=== PATIENT | female | born 1930 | race Caucasian/White ===

== ENCOUNTER 2019-01-24 11:54 | Emergency (ER) | payer MEDICARE ==
--- NOTE | 2019-01-24 12:42 | ED ---
Head Injury - HPI Summary HPI Summary: This patient is a 88 year old F presenting to [facility] accompanied by her daughter and nephew with a chief complaint of a head injury since 0900 this morning. The patients daughter reported she fell asleep while going to the bathroom and fell forward hitting her head. The patient reports the pain is a 6/10 in severity. She also reports that the patient has had increased fatigue for the past week, and has been falling asleep suddenly. The patient takes aspirin and two blood pressure medications regularly. She denies any fevers, chest pain, cough, SOB, and diarrhea. The patient has a Hx of congestive heart failure and Pancytopenia. Symptoms aggravated by nothing. Symptoms alleviated by nothing. The patient lives alone next to her daughter. The house is designed for her to live alone. - History Of Current Complaint Chief Complaint: EDHeadInjury Stated Complaint: FALL/POSS HEAD INJ PER PT Time Seen by Provider: 01/24/19 12:22 Hx Obtained From: Patient, Family/News Specialist Mechanism Of Injury: Other - Fell off toilet Onset/Duration: Started Hours Ago - 3 1/2 hours Onset of Pain: Immediate Severity Currently: Moderate Severity Initially: Moderate Pain Intensity: 6 Pain Scale Used: 0-10 Numeric Aggravating Factor(s): Other: - nothing Alleviating Factor(s): Other: - nothing Associated Signs And Symptoms: Negative - fever, chest pain, SOB, cough, diarreha, Other: - Allergies/Home Medications Allergies/Adverse Reactions: Allergies Allergy/AdvReac Type Severity Reaction Status Date / Time benzonatate Allergy Altered Verified 01/25/19 09:23 [From Jaime Merida] Mental Status diltiazem Allergy Dizziness Verified 01/25/19 09:23 iodine Allergy Hives Verified 01/25/19 09:23 simvastatin Allergy Hives Verified 01/25/19 09:23 sulfamethoxazole Allergy Swelling Verified 01/25/19 09:23 [From Bactrim] Of Face,Lips,& Throat trimethoprim [From Bactrim] Allergy Swelling Verified 01/25/19 09:23 Of Face,Lips,& Throat Home Medications: Home Medications Albuterol/Ipratropium NEB.MADHU* [Duoneb (Albuterol 2.5 MG/Ipratropium 0.5 MG)] 1 neb INH Q6H PRN 01/24/19 [History Confirmed 01/24/19] Escitalopram * [Lexapro 10 mg (NF)] 10 mg PO DAILY 01/24/19 [History Confirmed 01/24/19] Fluticasone NASAL SPRAY 50MCG* [Flonase NASAL SPRAY 50MCG*] 2 spray BOTH NARES DAILY PRN 01/24/19 [History Confirmed 01/24/19] Irbesartan [Avapro] 37.5 mg PO DAILY 01/24/19 [History Confirmed 01/24/19] Magnesium Oxide [Magnesium] 133 mg PO BID 01/24/19 [History Confirmed 01/24/19] Mecobal/Levomefolat Ca/B6 Phos [[id number] 3-35-2 mg] 1 tab PO DAILY [History Confirmed 01/24/19] Nitroglycerin TAB 0.4 MG* 0.4 mg SL Q5M PRN 01/24/19 [History Confirmed 01/24/19 ] Torsemide TAB* [Demadex*] 10 mg PO SUTH 01/24/19 [History Confirmed 01/24/19] PMH/Surg Hx/FS Hx/Imm Hx Previously Healthy: No Endocrine/Hematology History: Reports: Hx Diabetes Denies: Hx Thyroid Disease Cardiovascular History: Reports: Hx Angina, Hx Coronary Artery Disease, Hx Hypertension, Hx Myocardial Infarction, Hx Valvular Heart Disease Respiratory History: Denies: Hx Asthma, Hx Chronic Obstructive Pulmonary Disease (COPD) GI History: Denies: Hx Ulcer Musculoskeletal History: Denies: Hx Rheumatoid Arthritis, Hx Osteoporosis - Surgical History Surgery Procedure, Year, and Place: appe, ovarian cyst, tubal ligation, gum surgery wtih dental implants, bilat cataracts, cardiac stents. - Immunization History Date of Tetanus Vaccine: unk Date of Influenza Vaccine: 05/21/15 Infectious Disease History: No Infectious Disease History: Denies: Hx Clostridium Difficile, Hx Hepatitis, Hx Human Immunodeficiency Virus (HIV), Hx of Known/Suspected MRSA, Hx Shingles, Hx Tuberculosis, Traveled Outside the [place] in Last 30 Days - Family History Known Family History: Positive: Other - Osteoarthritis Negative: Cardiac Disease - Social History Alcohol Use: Daily Alcohol Amount: 2 drinks a day Hx Substance Use: No Substance Use Type: Reports: None Hx Tobacco Use: Yes Smoking Status (MU): Former Smoker Type: Cigarettes Amount Used/How Often: quit 30 y ears ago Review of Systems Negative: Fever Negative: Chest Pain Negative: Shortness Of Breath, Cough Negative: Diarrhea Neurological: Other - POSITIVE - HEAD INJURY All Other Systems Reviewed And Are Negative: Yes Physical Exam - Summary Physical Exam Summary: VITAL SIGNS: Reviewed. GENERAL: Patient is a well-developed and nourished FEMALE who is lying comfortable in the stretcher. Patient is not in any acute respiratory distress. HEAD AND FACE: No signs of trauma. No ecchymosis, hematomas or skull depressions. No sinus tenderness. EYES: PERRLA, EOMI x 2, No injected conjunctiva, no nystagmus. EARS: Hearing grossly intact. Ear canals and tympanic membranes are within normal limits. MOUTH: Oropharynx within normal limits. NECK: Supple, trachea is midline, no adenopathy, no JVD, no carotid bruit, no c- spine tenderness, neck with full ROM. CHEST: Symmetric, no tenderness at palpation LUNGS: Clear to auscultation bilaterally. No wheezing or crackles. CVS: Regular rate and rhythm, S1 and S2 present, no murmurs or gallops appreciated. ABDOMEN: Soft, non-tender. No signs of distention. No rebound no guarding, and no masses palpated. Bowel sounds are normal. EXTREMITIES: FROM in all major joints, bilateral LE edema 1+, no cyanosis or clubbing. NEURO: Alert and oriented x 3. No acute neurological deficits. Speech is normal and follows commands. SKIN: Dry and warm GCS: 15 Triage Information Reviewed: Yes Vital Signs On Initial Exam: Initial Vitals Temp Pulse Resp BP Pulse Ox 97.2 F 83 18 187/77 98 01/24/19 11:55 01/24/19 11:55 01/24/19 11:55 01/24/19 11:55 01/24/19 11:55 Vital Signs Reviewed: Yes Diagnostics - Vital Signs Vital Signs Temp Pulse Resp BP Pulse Ox 01/24/19 11:55 97.2 F 83 18 187/77 98 - Laboratory Result Diagrams: 01/24/19 12:51 01/24/19 12:51 Lab Statement: Any lab studies that have been ordered have been reviewed, and results considered in the medical decision making process. - Radiology CXR Radiology Interpretation Completed By: Radiologist Summary of Radiographic Findings: No active cardiopulmonary disease is noted.ED physician has reviewed this report. - CT CT brain CT Interpretation Completed By: Radiologist Summary of CT Findings: No traumatic brain injury or acute intracranial process evident. Involutional change and stigmata of chronic small vessel ischemic disease. ED Physician has reviewed this report. - EKG 12:51 Cardiac Rate: NL - 78 BPM EKG Rhythm: Sinus Rhythm ST Segment: Normal Summary of EKG Findings: Normal sinus rhythm of [address] elevations. EKG is similar to previous EKG no 04/27/15. Re-Evaluation - Re-Evaluation First Eval Re-Evaluation Time: 14:43 Comment: Patient was informed on discharge plan. Patient is agreeable. Head Injury Course/Dx Assessment/Plan: This patient is a 88 year old F presenting to [facility] accompanied by her daughter and nephew with a chief complaint of a head injury since 0900 this morning. The patients daughter reported she fell asleep while going to the bathroom and fell forward hitting her head. The patient reports the pain is a 6/10 in severity. She also reports that the patient has had increased fatigue for the past week, and has been falling asleep suddenly. The patient takes aspirin and two blood pressure medications regularly. She denies any fevers, chest pain, cough, SOB, and diarrhea. The patient has a Hx of congestive heart failure and Pancytopenia. Symptoms aggravated by nothing. Symptoms alleviated by nothing. The patient lives alone next to her daughter. The house is designed for her to live alone. Blood work without any significant abnormality except for hemoglobin of 9.8, hematocrit 32, glucose of 129, lactic acid is 3, and total protein 6.3. Head CT impression: no traumatic brain injury or acute interconnected process evident. Involutional changes and the stigmata of chronic small vessel ischemic disease. Chest x-ray impression: No active cardiopulmonary disease noted. At this time the patient is feeling well she has no complaints. The white count is normal, the CRP is normal, and therefore I do not suspect infection even though the lactic acid is 3. I believe this may be increased due to her hyperglycemia. Therefore I discuss my physical exam and findings with the patient and the patients daughter and the need to follow-up with the primary care physician. The patient is ambulating well, the patients ORTHOSTATICS are normal, therefore decreased frequency of somnolence is not clear at this point. I discussed all the findings and test results with the patient. Patient was instructed to return to the emergency room immediately if any of the symptoms return worsens. Plan of care was discussed with the patient and understands and agrees. All questions were answered at patient satisfaction. There were no further complaints or concerns. Lung exam before discharge: CTA B/L. Good air exchange. No wheezing or crackles heard. CVS: S1 and S2 present. No murmurs appreciated. Patient is alert and oriented x 3. Patient is hemodynamically stable. Patient will be discharged home with follow up PCP in the next 2-3 days - Diagnoses Differential Diagnosis/HQI/PQRI: Cerebral Contusion, Concussion With LOC, Contusion, Intracranial Bleed Provider Diagnoses: Weakness, Falls frequently Discharge - Sign-Out/Discharge Documenting (check all that apply): Patient Departure - discharge Patient Received Moderate/Deep Sedation with Procedure: No - Discharge Plan Condition: Stable Disposition: HOME Patient Education Materials: Weakness (ED), Fall Prevention (ED) Referrals: Kalyn Rudolph MD [Primary Care Provider] - 3 Days Additional Instructions: FOLLOW UP WITH YOUR PRIMARY CARE PROVIDER WITHIN 3 DAYS. RETURN TO THE ED FOR ANY WORSENING OR NEW SYMPTOMS. - Billing Disposition and Condition Condition: STABLE Disposition: Home - Attestation Statements Document Initiated by Scribe: Yes Documenting Scribe: Jay Camacho Provider For Whom Hazel is Documenting (Include Credential): Alex Sousa MD Scribe Attestation: Jay Mac, scribed for Alex Sousa MD on 01/26/19 at 1144. Scribe Documentation Reviewed: Yes Provider Attestation: The documentation as recorded by the scribe, Jay Camacho accurately reflects the service I personally performed and the decisions made by , Alex Sousa MD Status of Scribe Document: Viewed
[2019-01-24 13:24] LABS: Hematocrit 32 % (35-47); Hemoglobin 9.8 g/dL (12.0-16.0); Mean Corpuscular HGB Conc 31 g/dL (31-36); Mean Corpuscular Hemoglobin 28 pg (27-31); Mean Corpuscular Volume 91 fL (80-97); Red Blood Count 3.52 10^6 /uL (3.70-4.87); Red Cell Distribution Width 16 % (10.5-15); White Blood Count 4.1 10^3/uL (3.5-10.8)
[2019-01-24 13:27] LABS: Troponin I 0.01 ng/mL (<0.04)
[2019-01-24 13:36] LABS: Albumin 3.7 g/dL (3.2-5.2); BUN/Creatinine Ratio 33.9 (8-20); EGFR African American 109.9 (>60); EGFR Non-African American 90.8 (>60); Potassium 4.6 mmol/L (3.5-5.0)
[2019-01-24 13:45] LABS: Magnesium 2.1 mg/dL (1.9-2.7)
[2019-01-24 13:50] LABS: Albumin/Globulin Ratio 1.4 (1-3); C Reactive Protein 2.22 mg/L (<8.01); Globulin 2.6 g/dL (2-4); Total Protein 6.3 g/dL (6.4-8.9)
[2019-01-24 13:58] LABS: ABS Eosinophils 0.1 10^3/ul (0-0.6); ABS Monocytes 0.3 10^3/ul (0-0.8); ABS Neutrophils 2.7 10^3/ul (1.5-7.7); Eosinophil % 2.9 %; Lymphocyte % 23.2 %; Nucleated Red Blood Cells % 0.2; Platelet Count 80 10^3/uL (150-450)
[2019-01-24 13:59] LABS: Polychromasia 1+
[2019-01-24 14:04] LABS: TSH (Thyroid Stimulating Horm) 3.31 mcIU/mL (0.34-5.60)
[2019-01-24 14:10] LABS: Total Bilirubin 0.3 mg/dL (0.2-1.0)
[2019-01-24 14:26] LABS: Urine Appearance Cloudy; Urine Bilirubin Negative (Negative); Urine Blood Negative (Negative); Urine Color Yellow; Urine Glucose Negative (Negative); Urine Ketones Negative (Negative); Urine Nitrite Negative (Negative); Urine Protein Negative (Negative); Urine Specific Gravity 1.023 (1.010-1.030); Urine Urobilinogen Negative (Negative)
[2019-01-24 14:59] VITALS: BP 186/86
== END 2019-01-24 14:59 | disposition home or self-care (01) ==
LOC: ED 11:54
DX: R53.1 Weakness (principal); S09.90XA Unspecified injury of head, initial encounter; W22.8XXA Striking against or struck by other objects, initial encounter; Y92.002 Bathroom of unspecified non-institutional (private) residence as the place of occurrence of the external cause; Z91.81 History of falling; E11.9 Type 2 diabetes mellitus without complications; I10 Essential (primary) hypertension; Z79.82 Long term (current) use of aspirin; Z95.5 Presence of coronary angioplasty implant and graft; Z88.2 Allergy status to sulfonamides; Z88.8 Allergy status to other drugs, medicaments and biological substances; Z87.891 Personal history of nicotine dependence
CPT/HCPCS: 36415; 70450; 71046; 80053; 81003; 83605; 83735; 84443; 84484; 85025; 85060; 86140; 93005; 99283

== ENCOUNTER 2019-01-25 09:17 | Inpatient (IN) | payer MEDICARE ==
--- NOTE | 2019-01-25 10:47 | ED ---
Adult Trauma - HPI Summary HPI Summary: 88 year old female presents with frequent falls today. She was seen here yesterday for the same. daughter states that she was on the toilet and she fell asleep and falling and striking her head. She had the same injury yesterday. This is her fourth fall in 2 weeks. daughter states that has been increasing amount of alcohol that she drinking every night and she ends up being a little bit drunk in the morning. Daughter states she does not feel safe bringing the patient home as she continues to fall even thought daughter has been observing her in the morning. Patient has no plans at this time. Denies any chest pressure or shortness of breath. Denies any dizziness. Does admit to right knee pain. - History of Current Complaint Chief Complaint: EDFall Stated Complaint: FALL PER PT SON IN LAW Time Seen by Provider: 01/25/19 09:47 Pain Intensity: 4 - Allergy/Home Medications Allergies/Adverse Reactions: Allergies Allergy/AdvReac Type Severity Reaction Status Date / Time benzonatate Allergy Altered Verified 01/25/19 09:23 [From Jaime Merida] Mental Status diltiazem Allergy Dizziness Verified 01/25/19 09:23 iodine Allergy Hives Verified 01/25/19 09:23 simvastatin Allergy Hives Verified 01/25/19 09:23 sulfamethoxazole Allergy Swelling Verified 01/25/19 09:23 [From Bactrim] Of Face,Lips,& Throat trimethoprim [From Bactrim] Allergy Swelling Verified 01/25/19 09:23 Of Face,Lips,& Throat PMH/Surg Hx/FS Hx/Imm Hx Endocrine/Hematology History: Reports: Hx Diabetes Denies: Hx Anticoagulant Therapy, Hx Thyroid Disease Cardiovascular History: Reports: Hx Angina, Hx Coronary Artery Disease, Hx Hypertension, Hx Myocardial Infarction, Hx Valvular Heart Disease Respiratory History: Denies: Hx Asthma, Hx Chronic Obstructive Pulmonary Disease (COPD) GI History: Denies: Hx Ulcer Musculoskeletal History: Denies: Hx Rheumatoid Arthritis, Hx Osteoporosis - Surgical History Surgery Procedure, Year, and Place: appe, ovarian cyst, tubal ligation, gum surgery wtih dental implants, bilat cataracts, cardiac stents. - Immunization History Date of Tetanus Vaccine: unk Date of Influenza Vaccine: 05/21/15 Infectious Disease History: No Infectious Disease History: Denies: Hx Clostridium Difficile, Hx Hepatitis, Hx Human Immunodeficiency Virus (HIV), Hx of Known/Suspected MRSA, Hx Shingles, Hx Tuberculosis, Traveled Outside the [place] in Last 30 Days - Family History Known Family History: Positive: Other - Osteoarthritis Negative: Cardiac Disease - Social History Alcohol Use: Daily Alcohol Amount: 2 drinks a day Hx Substance Use: No Substance Use Type: Reports: None Hx Tobacco Use: Yes Smoking Status (MU): Former Smoker Type: Cigarettes Amount Used/How Often: quit 30 y ears ago Review of Systems Negative: Fever Negative: Chest Pain Negative: Shortness Of Breath Positive: Myalgia - right knee pain All Other Systems Reviewed And Are Negative: Yes Physical Exam Triage Information Reviewed: Yes Vital Signs On Initial Exam: Initial Vitals Temp Pulse Resp BP Pulse Ox 97.5 F 70 20 163/86 98 01/25/19 09:20 01/25/19 09:20 01/25/19 09:20 01/25/19 09:20 01/25/19 09:20 Vital Signs Reviewed: Yes Appearance: Positive: Well-Appearing Skin: Positive: Warm, Dry Head/Face: Positive: Normal Head/Face Inspection, Other - abrasion to left side of face, superficial laceration to inner lip, brusising to lip Eyes: Positive: Normal, Conjunctiva Clear ENT: Positive: Pharynx normal Respiratory/Lung Sounds: Positive: Clear to Auscultation, Breath Sounds Present Cardiovascular: Positive: Normal, RRR Abdomen Description: Positive: Nontender, Soft Bowel Sounds: Positive: Present Musculoskeletal: Positive: Normal Neurological: Positive: Normal Psychiatric: Positive: Normal Diagnostics - Vital Signs Vital Signs Temp Pulse Resp BP Pulse Ox 01/25/19 09:20 97.5 F 70 20 163/86 98 - Laboratory Result Diagrams: 01/25/19 11:30 01/25/19 11:30 Lab Statement: Any lab studies that have been ordered have been reviewed, and results considered in the medical decision making process. - CT brain CT Interpretation Completed By: Radiologist Summary of CT Findings: IMPRESSION: No intracranial mass or hemorrhage is noted. - EKG No standard instances Cardiac Rate: NL EKG Rhythm: Sinus Rhythm EKG Comparison: No Significant Change Summary of EKG Findings: sinus rhythm, RBBB Re-Evaluation - Re-Evaluation First Eval Re-Evaluation Time: 11:50 Second Eval Re-Evaluation Time: 12:49 Comment: denies chest pain Adult Trauma Course/Dx - Course Course Of Treatment: 88 year old female presents with frequent falls today. She was seen here yesterday for the same. daughter states that she was on the toilet and she fell asleep and falling and striking her head. She had the same injury yesterday. This is her fourth fall in 2 weeks. daughter states that has been increasing amount of alcohol that she drinking every night and she ends up being a little bit drunk in the morning. Daughter states she does not feel safe bringing the patient home as she continues to fall even thought daughter has been observing her in the morning. Patient has no plans at this time. Denies any chest pressure or shortness of breath. Denies any dizziness. Does admit to right knee pain. on exam has superficial laceration noted to left cheek and lip. normal neuro exam. has tenderness right knee. patient continues to sleep off and on during exam. family would like patient admits. ekg shows sinus rhythm. wbc normal. troponin .08 but no chest pain but gave some aspirin. discussed with hospitalist who will consult. patient will be admitted. - Diagnoses Differential Diagnosis/HQI/PQRI: Positive: Abrasion(s), Contusion(s), Fracture Provider Diagnoses: Frequent falls, Head injury, Alcohol intoxication Discharge - Sign-Out/Discharge Documenting (check all that apply): Patient Departure - Discharge Plan Condition: Stable Disposition: ADMITTED TO [facility] Referrals: Kalyn Rudolph MD [Primary Care Provider] - - Billing Disposition and Condition Condition: STABLE Disposition: Admitted to [facility] - Attestation Statements Provider Attestation: I was available for consult. This patient was seen by the MARIELA. The patient was not presented to, seen by, or examined by me. -Devendra
[2019-01-25 11:46] LABS: ABS Basophils 0.1 10^3/ul (0-0.2); ABS Eosinophils 0.1 10^3/ul (0-0.6); ABS Lymphocytes 0.6 10^3/ul (1.0-4.8); ABS Monocytes 0.3 10^3/ul (0-0.8); ABS Neutrophils 3.1 10^3/ul (1.5-7.7); Eosinophil % 2.2 %; Hematocrit 31 % (35-47); Hemoglobin 9.4 g/dL (12.0-16.0); Lymphocyte % 15.5 %; Mean Corpuscular HGB Conc 31 g/dL (31-36); Mean Corpuscular Hemoglobin 28 pg (27-31); Mean Corpuscular Volume 90 fL (80-97); Mean Platelet Volume 8.3 fL (7.4-10.4); Platelet Count 140 10^3/uL (150-450); Red Cell Distribution Width 16 % (10.5-15); White Blood Count 4.1 10^3/uL (3.5-10.8)
[2019-01-25 12:00] LABS: Activated Partial Thrombo Time 28.4 seconds (26.0-36.3); INR 0.97 (0.82-1.09)
[2019-01-25 12:05] LABS: ALT 35 U/L (7-52); AST 31 U/L (13-39); Albumin 3.8 g/dL (3.2-5.2); Albumin/Globulin Ratio 1.5 (1-3); Alkaline Phosphatase 76 U/L (34-104); Anion Gap 7 mmol/L (2-11); BUN/Creatinine Ratio 35.2 (8-20); Blood Urea Nitrogen 19 mg/dL (6-24); CO2 Carbon Dioxide 27 mmol/L (22-32); Calcium 8.9 mg/dL (8.6-10.3); Chloride 103 mmol/L (101-111); EGFR African American 128.9 (>60); EGFR Non-African American 106.5 (>60); Globulin 2.5 g/dL (2-4); Glucose 134 mg/dL (70-100); Magnesium 2.2 mg/dL (1.9-2.7); Potassium 4.3 mmol/L (3.5-5.0); Sodium 137 mmol/L (135-145); Total Protein 6.3 g/dL (6.4-8.9)
[2019-01-25 12:12] LABS: Troponin I 0.08 ng/mL (<0.04)
[2019-01-25] MEDS ORDERED: Aspirin 81 mg CHEW TAB* 81 MG TAB.CHEW PO ONE (12:31)
[2019-01-25 12:38] LABS: Alcohol 66 mg/dL (<10)
[2019-01-25 16:07] LABS: Troponin I 0.08 ng/mL (<0.04)
[2019-01-25] MEDS ORDERED: Acetaminophen TAB* 325 MG PO PRN (16:46)
[2019-01-25] MEDS ORDERED: Thiamine IV* 100 MG/ML 2 ML VIAL IM ONE (16:57)
[2019-01-25] MEDS ORDERED: Albuterol/Ipratropium NEB.SOL* Albuterol 2.5 MG/Ipratropium 0.5 MG 3 ML INH PRN (17:00)
[2019-01-25] MEDS ORDERED: Fluticasone NASAL SPRAY 50MCG* 16 gm SPRAY BTL BOTH NARES PRN (17:00)
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
[2019-01-25] MEDS: Folic Acid TAB* 1 MG PO SCH (21:22)
[2019-01-25] MEDS: Enoxaparin(*) 40 MG/0.4 ML SYR SUBCUT SCH (21:23)
[2019-01-25] MEDS: Multivitamins/Minerals TAB PO SCH (21:23)
[2019-01-25] MEDS: Melatonin 3 MG TAB PO PRN (21:59)
[2019-01-25] MEDS ORDERED: Gabapentin CAP(*) 100 MG PO PRN (23:28)
[2019-01-26 01:52] LABS: Troponin I 0.06 ng/mL (<0.04)
[2019-01-26 03:57] LABS: Troponin I 0.07 ng/mL (<0.04)
[2019-01-26] MEDS: Folic Acid TAB* 1 MG PO SCH (07:51)
[2019-01-26] MEDS: Losartan TAB* 25 MG PO SCH (07:51)
[2019-01-26] MEDS: Escitalopram * 10 MG TAB PO SCH (07:51)
[2019-01-26] MEDS: Multivitamins/Minerals TAB PO SCH (07:51)
[2019-01-26] MEDS: Cholecalciferol TAB* 1000 UNITS PO SCH (07:51)
[2019-01-26] MEDS: Aspirin EC TAB* 81 MG TAB.EC PO SCH (07:51)
[2019-01-26] MEDS: Thiamine TAB* 100 MG TAB PO SCH (07:51)
[2019-01-26] MEDS: Torsemide TAB 10 MG PO SCH (08:05)
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
--- NOTE | 2019-01-26 13:46 | ECHO ---
*[facility]* [place] [address] Fax #: [phone] Transthoracic Echocardiogram (Report amended [id number]:[id number]) Patient: Skyler Height: 56 in / Keli 142.2 cm : 1930 Weight: 149.7 lb / Study Date: 01/26/2019 68 kg Age: 88 BP: 112 / 96 Gender: F BMI/BSA: 33.6 kg/m^2 HR: 87 bpm / 1.68 m^2 *Hat Presser: * Olena Patel [facility] RN *Referring Physician: * Monse Bass *Reading Physician: * Beth Martinez MD History: Congestive heart failure. Functional status: Aortic stenosis with TAVR 2 years ago. Obstructive sleep apnea. Risk factors: Former tobacco use. COPD. Hypertension. Diabetes mellitus. Dyslipidemia. NE. CHF. ETOH use. Conclusions Summary: 1. Left ventricle: The cavity size is normal. Wall thickness is moderately increased. Systolic function is normal. The estimated ejection fraction is 60-65%. 2. Left atrium: The atrium is moderately dilated. 3. Right atrium: The atrium is mildly dilated. 4. Mitral valve: There is mild to moderate regurgitation. 5. Aortic valve: Transcatheter aortic valve replacement. There is no significant regurgitation. The mean aortic gradient is 22.5 mmHg. 6. Tricuspid valve: There is moderate-severe regurgitation. 7. Pulmonary arteries: Systolic pressure is severely increased, estimated to be 69 mm Hg. 8. C/t 12/28/2016, pt is now s/p TAVR. No sig AI now. is now mild-moderate , instead of severe and mild-moderate AI then. Tricuspid regurgitation and PHTN are more now. Study data: Transthoracic echocardiogram. Procedure: Transthoracic echocardiography was performed. Image quality was fair. The study was technically limited due to body habitus. Complete 2D, spectral Doppler, and color flow Doppler. Location: Procedure room. Patient status: Inpatient. Patient room number: 406-01. Findings Left ventricle: The cavity size is normal. Wall thickness is moderately increased. Systolic function is normal. The estimated ejection fraction is 60-65%. Wall motion is normal; there are no regional wall motion abnormalities. Doppler parameters are consistent with abnormal left ventricular relaxation (grade 1 diastolic dysfunction). Right ventricle: The cavity size is normal. Systolic function is normal. Left atrium: The atrium is moderately dilated. Right atrium: The atrium is mildly dilated. Mitral valve: The leaflets are mildly thickened. There is no evidence of stenosis. There is mild to moderate regurgitation. Aortic valve: Not well visualized. Transcatheter aortic valve replacement. Follow-up TAVR: The LVOT diameter is 1.8 cm. The peak aortic gradient is 48.2 mmHg. The mean aortic gradient is 22.5 mmHg. The AV VTI is 67.8 cm. The aortic valve area is 1 cm^2. There is no significant regurgitation. Tricuspid valve: The valve is structurally normal. There is no evidence of stenosis. There is moderate-severe regurgitation. Pulmonic valve: The valve is structurally normal. There is mild regurgitation. Aorta: Aortic root: The aortic root is not dilated. Ascending aorta: The ascending aorta is not dilated. Aortic arch: The aortic arch is not dilated. Pericardium: There is no pericardial effusion. Pulmonary arteries: Not well visualized. Systolic pressure is severely increased, estimated to be 69 mm Hg. Systemic veins: Inferior vena cava: The vessel is mildly dilated. The respirophasic diameter changes are in the normal range (>= 50%). Measurements Left ventricle Value Ref Aortic valve Value Ref DEVIN, LAX 3.9 cm 3.8 - 5.2 Peak v, S 3.5 m/sec ----- ESD, LAX 3.0 cm 2.2 - 3.5 VTI, S 67.8 cm ----- FS, LAX (L) 23 % 27 - 45 Mean grad, S 22.5 mm Hg ----- PW, ED, LAX (H) 1.3 cm 0.6 - 0.9 Peak grad, S 48.2 mm Hg ----- FS (L) 23 % 27 - 45 LVOT/AV, VTI ratio 0.39 ----- Mid-wall FS 7 % --------- SHAJI, VTI 1.00 cm^2 ----- PW, ED (H) 1.4 cm 0.6 - 0.9 SHAJI, Vmax 0.90 cm^2 ----- PW/ID, ED 0.35 --------- E', lat raghavendra, TDI (L) 8.9 cm/sec >=10.0 Mitral valve Value Re f E/e', lat raghavendra, TDI 13 --------- Peak E 1.15 m/sec ----- Peak A 1.4 m/sec ----- LVOT Value Ref Decel time 186 ms ----- Diam, S 1.80 cm --------- Peak grad, D 5.3 mm Hg ----- Area 2.5 cm^2 --------- Peak E/A ratio 0.83 ----- Peak raymundo, S 1.24 m/sec --------- VTI, S 26.2 cm --------- Pulmonic valve Value Ref Peak grad, S 6 mm Hg --------- Peak v, S 1.25 m/sec ----- Mean grad, S 4 mm Hg --------- Peak grad, S 6.2 mm Hg ----- Ventricular septum Value Ref Tricuspid valve Value Ref IVS, ED (H) 1.5 cm 0.6 - 0.9 TR peak v (H) 3.9 m/sec <=2.8 Peak RV-RA grad, S 61 mm Hg ----- Right ventricle Value Ref DEVIN major ax, A4C (L) 3.2 cm 5.9 - 8.3 Aortic root Value Ref Root diam 2.6 cm <3.9 Left atrium Value Ref LA ID 4.3 cm --------- Ascending aorta Value Ref SI dim ES, LAX 4.3 cm --------- AAo AP diam, S 2.7 cm ----- ML dim, A4C 4.6 cm --------- SI dim, A4C 6.4 cm --------- Aortic arch Value Ref Vol, ES, 2-p 67 ml --------- Arch diam 2.4 cm ----- Vol/bsa, ES, 2-p (H) 43 ml/m^2 16 - 34 Decending aorta Value Ref Right atrium Value Ref Janay peak raymundo 1.24 m/sec ----- ML dim, ES, A4C (H) 4.9 cm 2.6 - 4.4 SI dim, ES, A4C 5.1 cm 3.4 - 5.3 Inferior vena cava Value Ref Estimated RAP 8 mm Hg --------- Diam 2.3 cm ----- Legend: (L) and (H) mohit values outside specified reference range. Amended Beth Martinez MD 01/26/2019 13:48
[2019-01-26 19:25] LABS: Urine Appearance Cloudy; Urine Bilirubin Negative (Negative); Urine Blood Negative (Negative); Urine Color Yellow; Urine Glucose Negative (Negative); Urine Ketones Negative (Negative); Urine Nitrite Negative (Negative); Urine Protein Negative (Negative); Urine Urobilinogen Negative (Negative)
[2019-01-26] MEDS: Melatonin 3 MG TAB PO PRN (19:58)
[2019-01-26] MEDS: Gabapentin CAP(*) 100 MG PO PRN (19:58)
[2019-01-26] MEDS: Enoxaparin(*) 40 MG/0.4 ML SYR SUBCUT SCH (19:58)
[2019-01-27] MEDS: Metoprolol Succinate XL TAB* 25 MG PO SCH (08:51)
[2019-01-27] MEDS: Cholecalciferol TAB* 1000 UNITS PO SCH (08:52)
[2019-01-27] MEDS: Thiamine TAB* 100 MG TAB PO SCH (08:52)
[2019-01-27] MEDS: Folic Acid TAB* 1 MG PO SCH (08:52)
[2019-01-27] MEDS: Losartan TAB* 25 MG PO SCH (08:52)
[2019-01-27] MEDS: Multivitamins/Minerals TAB PO SCH (08:52)
[2019-01-27] MEDS: Aspirin EC TAB* 81 MG TAB.EC PO SCH (08:52)
[2019-01-27] MEDS: Escitalopram * 10 MG TAB PO SCH (08:52)
[2019-01-27] MEDS ORDERED: Magnesium Sulfate 1 GM IV* 1 GM/100 ML BAG IV ONE (09:45)
[2019-01-27 11:11] LABS: BUN/Creatinine Ratio 36.7 (8-20); EGFR African American 114.2 (>60); EGFR Non-African American 94.3 (>60); Potassium 4.3 mmol/L (3.5-5.0)
[2019-01-27] MEDS: Polyethylene Glycol 3350* 17 GM PACKET PO PRN (17:30)
--- NOTE | 2019-01-27 17:56 | PN ---
Subjective Date of Service: 01/27/19 Interval History: Patient seen and examined. No acute overnight events. Not scoring on WAM, states gabapentin helped with RLS overnight but she did initially have trouble falling asleep. States her left great toe hurts after getting OOB with PT yesterday (was fractured earlier this month). No further complaints noted. Objective Active Medications: Acetaminophen (Tylenol Tab*) 650 mg PO Q4H PRN PRN Reason: FEVER/PAIN Albuterol/Ipratropium (Duoneb (Albuterol 2.5 Mg/Ipratropium 0.5 Mg)) 1 neb INH Q6H PRN PRN Reason: SHORTNESS OF BREATH Aspirin (Aspirin Ec Tab*) 81 mg PO DAILY [facility] Last Admin: 01/27/19 08:52 Dose: 81 mg Cholecalciferol (Vitamin D Tab*) 2,000 units PO DAILY [facility] Last Admin: 01/27/19 08:52 Dose: 2,000 units Enoxaparin Sodium (Lovenox(*)) 40 mg SUBCUT Q24H [facility] Last Admin: 01/26/19 19:58 Dose: 40 mg Escitalopram Oxalate (Lexapro *) 10 mg PO DAILY [facility] Last Admin: 01/27/19 08:52 Dose: 10 mg Fluticasone Propionate (Flonase Nasal [place] 50mcg*) 2 spray BOTH NARES DAILY PRN PRN Reason: CONGESTION Folic Acid (Folvite Tab*) 1 mg PO DAILY [facility] Last Admin: 01/27/19 08:52 Dose: 1 mg Gabapentin (Neurontin Cap(*)) 200 mg PO BEDTIME PRN PRN Reason: restless leg Last Admin: 01/26/19 19:58 Dose: 200 mg Gabapentin (Neurontin Cap(*)) 100 mg PO DAILY PRN PRN Reason: restless leg Lorazepam (Ativan Tab(*)) 0 - 6 mg PO .PER [facility] PROTOCOL [facility]; Protocol Losartan Potassium (Cozaar Tab*) 12.5 mg PO DAILY [facility] Last Admin: 01/27/19 08:52 Dose: 12.5 mg Melatonin (Melatonin) 3 mg PO BEDTIME PRN PRN Reason: SLEEP Last Admin: 01/26/19 19:58 Dose: 3 mg Metoprolol Succinate (Toprol Xl Tab*) 12.5 mg PO EVERY OTHER DAY [facility] Last Admin: 01/27/19 08:51 Dose: 12.5 mg Multivitamins/Minerals (Theragran/Minerals Tab*) 1 tab PO DAILY [facility] Last Admin: 01/27/19 08:52 Dose: 1 tab Polyethylene Glycol/Electrolytes (Miralax*) 17 gm PO DAILY PRN PRN Reason: CONSTIPATION Last Admin: 01/27/19 17:30 Dose: 17 gm Thiamine HCl (Vitamin B-1 Tab*) 100 mg PO DAILY [facility] Last Admin: 01/27/19 08:52 Dose: 100 mg Torsemide (Torsemide) 10 mg PO SuTh@0900 [facility] Last Admin: 01/26/19 08:05 Dose: 10 mg Vital Signs - 8 hr 01/27/19 01/27/19 10:32 14:07 Temperature 97.6 F 97.3 F Pulse Rate 87 73 Respiratory 22 20 Rate Blood Pressure 107/69 117/55 (mmHg) O2 Sat by Pulse 98 99 Oximetry Oxygen Devices in Use Now: Nasal Cannula Appearance: alert, NAD Eyes: No Scleral Icterus, PERRLA Ears/Nose/Mouth/Throat: NL Teeth, Lips, Gums, Mucous Membranes Moist, - - bruise with ecchymosis to right lower lip and chin Neck: NL Appearance and Movements; NL JVP, Trachea Midline Respiratory: Symmetrical Chest Expansion and Respiratory Effort, Clear to Auscultation Cardiovascular: NL Sounds; No Murmurs; No JVD, RRR, No Edema Abdominal: NL Sounds; No Tenderness; No Distention, No Hepatosplenomegaly Extremities: No Edema Skin: No Rash or Ulcers Nutrition: Taking PO's Result Diagrams: 01/25/19 11:30 01/27/19 10:20 Diagnostic Imaging: Patient Name: GUERDA MEDELLIN Medical Record#: [id number] Ordering Physician: Jamila REED Acct.#: [id number] : 1930 Age: 88 Sex: F Location: EMERGENCY DEPARTMENT Exam Date: 01/25/19953 ADM Status: REG ER Order Information: CT BRAIN WO Accession Number: [id number] CPT: 14367 Indication: Head injury. CT of the brain performed without IV contrast. Ventricular structures are midline. No midline shift is noted. The extra-axial bases are unremarkable. There is no evidence of intracranial mass or hemorrhage. No other high or low density lesions identified. Mastoid air cells and paranasal sinuses are unremarkable. Mucus retention cyst in the left maxillary sinus. When compared to previous exam of January 24, 2019 no significant change is noted. IMPRESSION: No intracranial mass or hemorrhage is noted. Patient Name: GUERDA MEDELLIN Medical Record#: [id number] Ordering Physician: Jamila REED Acct.#: [id number] : 1930 Age: 88 Sex: F Location: EMERGENCY DEPARTMENT Exam Date: 01/25/19953 ADM Status: REG ER Order Information: CT MAXILLOFACIAL W/O Accession Number: [id number] CPT: 91940 INDICATION: Facial trauma. COMPARISON: There are no relevant prior studies available for comparison. TECHNIQUE: Contiguous axial sections of the axial images of the facial bones were obtained and reconstructed in the coronal and sagittal planes. FINDINGS: Soft tissue swelling is noted anterior to the mandible. The ponce of the orbits and maxillary sinuses appear intact. The zygomatic arches appear intact. There is no evidence for a fracture of the mandible. The nasal bones appear intact. There is moderate deviation of the nasal septum toward the right side. The pterygoid plates appear intact. There is mild mucosal thickening within the frontal and ethmoid sinuses. There are 2 nodules within the left maxillary sinus measuring up to 1.5 cm in size most consistent with mucous retention cysts or polyps. The ostiomeatal complexes are patent bilaterally. IMPRESSION: NO EVIDENCE OF FRACTURE. Patient Name: GUERDA MEDELLIN Medical Record#: [id number] Ordering Physician: Jamila REED Acct.#: [id number] : 1930 Age: 88 Sex: F Location: EMERGENCY DEPARTMENT Exam Date: 01/25/19954 ADM Status: REG ER Order Information: CT SPINE CERVICAL W/O Accession Number: [id number] CPT: 44393 Indication: Neck injury, facial injury. CT of the cervical spine was obtained in the axial plane. Sagittal and coronal reconstructed images were obtained. The skull base demonstrates no evidence of fracture. Mastoid air cells are unremarkable. Degenerative changes of the atlantoaxial joint is noted. The C1 ring is intact. At C2-C3 there is degenerative disc disease. No fracture is identified. No central foraminal stenosis is noted. Facet arthropathy at C2-C3 is noted bilaterally. At C3-C4 spondylitic ridge with minimal grade 1 spondylolisthesis is noted. Facet arthropathy is noted. No central or foraminal stenosis is noted. At C4-C5 minimal grade 1 spondylolisthesis is noted. No central or foraminal stenosis is noted. Right uncovertebral joint hypertrophy narrows the right foramen. At C5-C6 there is complete loss of disc height. Facet arthropathy is noted. Osteophyte for examination is noted. At C6-C7 degenerative disc disease with spondylytic ridge flattens the thecal sac. Ventral and dorsal osteophyte formation is noted. At C7-T1 disc is preserved in height and signal. No fracture is identified. IMPRESSION: Minimal grade 1 spondylolisthesis of C3 on 4 and C4 on 5. Marked degenerative disc disease at C5-C6 with complete loss of the disc space with spondylytic ridge. Degenerative disc disease at C6-C7 with ventral and dorsal osteophyte formation. No fracture is noted. Patient Name: GUERDA MEDELLIN Medical Record#: [id number] Ordering Physician: Jamlia REED Acct.#: [id number] : 1930 Age: 88 Sex: F Location: EMERGENCY DEPARTMENT Exam Date: 01/25/19 1149 ADM Status: REG ER Order Information: KNEE RIGHT 4+ VWS Accession Number: [id number] CPT: 19554 Indication: Right knee pain. 4 views of the right knee demonstrate joint space narrowing in the medial compartment of the right knee. There is no fracture or dislocation. No other bone or joint abnormality is identified. No significant joint effusion is noted. IMPRESSION: Degenerative changes medial compartment right knee. Patient Name: GUERDA MEDELLIN Medical Record#: [id number] Ordering Physician: Monse Bass NP Acct.#: [id number] : 1930 Age: 88 Sex: F Location: [address] [place] [address] Exam Date: 01/25/19 1846 ADM Status: ADM Betty Order Information: CHEST PA & LAT 2 VWS Accession Number: [id number] CPT: 41021 INDICATION: Altered mental status. Falls. History of tobacco use. COMPARISON: January 24, 2019 TECHNIQUE: Dual energy PA and routine lateral views of the chest were obtained. REPORT: Aortic valve endograft. Cardiomegaly. Mild prominence of the central pulmonary vasculature and diffuse mild prominence of the interstitial markings. Probable small pleural effusions. Retrocardiac hiatal hernia. IMPRESSION: #. Mild pulmonary vascular congestion and interstitial edema. Assess/Plan/Problems-Billing Assessment: This is an 88 year old female with history of CAD/MT, HTN, s/p valve replacement, RLS, asthma, COPD, depression, CHF and DONELL that presented to the ER with family after reported 2 week history of increasing day time fatigue, falls and increased ETOH use/intoxication. - Patient Problems (1) Falls frequently Code(s): R29.6 - REPEATED FALLS SNOMED Code(s): 390760373 Comment: - Imaging as above, no fractures evident - PT eval notes patient may benefit from IDANIA at discharge (2) Alcohol use disorder Code(s): NIL1634 - SNOMED Code(s): 8568649 Comment: - Per family patient is drinking at night and overnight because of RLS and insomnia - ETOH level 66 at admission - Not requiring meds, WAM score 3 today - Continue MVI, thiamine and folate - Social work consulted and following - Stable (3) Toe fracture, left Code(s): S92.912A - UNSP FRACTURE OF LEFT TOE(S), INIT FOR CLOS FX SNOMED Code (s): 23018904 Comment: - Fracture noted on imaging earlier this month with no interventionand patient complaining of toe pain since ambulating with PT yesterday - Will re-image toe and discuss with ortho if needed (4) Lactic acidosis Code(s): E87.2 - ACIDOSIS SNOMED Code(s): 14199288 Comment: - In setting of ETOH intoxication and hypoperfusion, now resolved (5) HTN (hypertension) Code(s): I10 - ESSENTIAL (PRIMARY) HYPERTENSION SNOMED Code(s): 93316462 Comment: - Continue metoprolol (6) Restless leg syndrome Comment: - Started on gabapentin last night which helped per RN report - Increased dose to 200mg PRN at bedtime and 100mg PRN daytime - Although the gabapentin dose is low, it may also mitigate some alcohol withdrawal symptoms, she should continue this at discharge (7) CAD (coronary artery disease) Code(s): I25.10 - ATHSCL HEART DISEASE OF [place] CORONARY ARTERY W/O ANG PCTRS SNOMED Code(s): 56918613 Comment: - With hx of MT in the past - Mildly elevated trops at admission with no chest pain or anginal equivalents , likely demand and hypoperfusion in setting of intoxication - Continue ASA and BB (8) COPD (chronic obstructive pulmonary disease) Code(s): J44.9 - CHRONIC OBSTRUCTIVE PULMONARY DISEASE, UNSPECIFIED SNOMED Code(s): 81954536 Comment: - On O2 at night and PRN - Not in exacerbation (9) DVT prophylaxis Code(s): Z29.9 - ENCOUNTER FOR PROPHYLACTIC MEASURES, UNSPECIFIED SNOMED Code( s): 546644335 Comment: - Lovenox subq (10) Full code status Code(s): Z78.9 - OTHER SPECIFIED HEALTH STATUS SNOMED Code(s): 643327249 Status and Disposition: Patient medically optimized for discharge today, however family concerned about safe discharge given ETOH use disorder and functional ability. Will discuss with case management further, as patient's family appealing discharge.
[2019-01-27] MEDS ORDERED: Dextrose 50% Syringe 50 ML* 25 GM/50 ML SYRINGE IV PUSH PRN (18:21)
[2019-01-27] MEDS: Insulin LISPRO* 1 UNITS UNIT SUBCUT SCH (18:54)
[2019-01-27] MEDS: Gabapentin CAP(*) 100 MG PO PRN (18:55)
[2019-01-27] MEDS: Melatonin 3 MG TAB PO PRN (20:24)
[2019-01-27] MEDS: Enoxaparin(*) 40 MG/0.4 ML SYR SUBCUT SCH (20:24)
[2019-01-27] MEDS: LORazepam TAB(*) 1 MG PO SCH (23:13)
[2019-01-28] MEDS: Polyethylene Glycol 3350* 17 GM PACKET PO PRN (07:20)
[2019-01-28] MEDS: Losartan TAB* 25 MG PO SCH (07:24)
[2019-01-28] MEDS: Aspirin EC TAB* 81 MG TAB.EC PO SCH (07:24)
[2019-01-28] MEDS: Cholecalciferol TAB* 1000 UNITS PO SCH (07:26)
[2019-01-28] MEDS: Multivitamins/Minerals TAB PO SCH (07:26)
[2019-01-28] MEDS: Escitalopram * 10 MG TAB PO SCH (07:26)
[2019-01-28] MEDS: Thiamine TAB* 100 MG TAB PO SCH (07:26)
[2019-01-28] MEDS: Folic Acid TAB* 1 MG PO SCH (07:26)
[2019-01-28] MEDS: Insulin LISPRO* 1 UNITS UNIT SUBCUT SCH ×3 (09:03→16:57)
--- NOTE | 2019-01-28 16:46 | PN ---
Subjective Date of Service: 01/28/19 Interval History: Patient seen and examined. Difficulty sleeping overnight, WAM was scored and patient received ativan which did help her to sleep and patient felt better this morning. She did sleep even longer in the morning and then woke up for lunch. BG was elevated yesterday. Denies any further complaints, toe pain controlled, no acute SOB, no chest pain, no n/v, denies tremors, no hallucinations or anxiety. Objective Active Medications: Acetaminophen (Tylenol Tab*) 650 mg PO Q4H PRN PRN Reason: FEVER/PAIN Albuterol/Ipratropium (Duoneb (Albuterol 2.5 Mg/Ipratropium 0.5 Mg)) 1 neb INH Q6H PRN PRN Reason: SHORTNESS OF BREATH Aspirin (Aspirin Ec Tab*) 81 mg PO DAILY [facility] Last Admin: 01/28/19 07:24 Dose: 81 mg Cholecalciferol (Vitamin D Tab*) 2,000 units PO DAILY [facility] Last Admin: 01/28/19 07:26 Dose: 2,000 units Dextrose (D50w Syringe 50 Ml*) 12.5 gm IV PUSH .FOR FS < 60 - SS PRN PRN Reason: FS < 60 Enoxaparin Sodium (Lovenox(*)) 40 mg SUBCUT Q24H [facility] Last Admin: 01/27/19 20:24 Dose: 40 mg Escitalopram Oxalate (Lexapro *) 10 mg PO DAILY [facility] Last Admin: 01/28/19 07:26 Dose: 10 mg Fluticasone Propionate (Flonase Nasal [place] 50mcg*) 2 spray BOTH NARES DAILY PRN PRN Reason: CONGESTION Folic Acid (Folvite Tab*) 1 mg PO DAILY [facility] Last Admin: 01/28/19 07:26 Dose: 1 mg Gabapentin (Neurontin Cap(*)) 200 mg PO BEDTIME PRN PRN Reason: restless leg Last Admin: 01/27/19 18:55 Dose: 200 mg Gabapentin (Neurontin Cap(*)) 100 mg PO DAILY PRN PRN Reason: restless leg Insulin Human Lispro (Humalog*) 0 units SUBCUT AC [facility]; Protocol Last Admin: 01/28/19 12:32 Dose: 1 unit Lorazepam (Ativan Tab(*)) 0 - 6 mg PO .PER [place] PROTOCOL [facility]; Protocol Last Admin: 01/27/19 23:13 Dose: 1 mg Lorazepam (Ativan Tab(*)) 1 mg PO BEDTIME [facility] Losartan Potassium (Cozaar Tab*) 12.5 mg PO DAILY [facility] Last Admin: 01/28/19 07:24 Dose: 12.5 mg Melatonin (Melatonin) 3 mg PO BEDTIME PRN PRN Reason: SLEEP Last Admin: 01/27/19 20:24 Dose: 3 mg Metoprolol Succinate (Toprol Xl Tab*) 12.5 mg PO EVERY OTHER DAY [facility] Last Admin: 01/27/19 08:51 Dose: 12.5 mg Multivitamins/Minerals (Theragran/Minerals Tab*) 1 tab PO DAILY [facility] Last Admin: 01/28/19 07:26 Dose: 1 tab Polyethylene Glycol/Electrolytes (Miralax*) 17 gm PO DAILY PRN PRN Reason: CONSTIPATION Last Admin: 01/28/19 07:20 Dose: 17 gm Thiamine HCl (Vitamin B-1 Tab*) 100 mg PO DAILY [facility] Last Admin: 01/28/19 07:26 Dose: 100 mg Torsemide (Torsemide) 10 mg PO SuTh@0900 [facility] Last Admin: 01/26/19 08:05 Dose: 10 mg Vital Signs - 8 hr 01/28/19 01/28/19 10:45 14:55 Temperature 98.3 F 98.2 F Pulse Rate 91 78 Respiratory 18 18 Rate Blood Pressure 130/65 141/79 (mmHg) O2 Sat by Pulse 97 99 Oximetry Oxygen Devices in Use Now: Nasal Cannula Appearance: alert, NAD Eyes: No Scleral Icterus, PERRLA Ears/Nose/Mouth/Throat: NL Teeth, Lips, Gums, Mucous Membranes Moist, - - ecchymosis right lower lip Neck: NL Appearance and Movements; NL JVP, Trachea Midline Respiratory: Symmetrical Chest Expansion and Respiratory Effort, Clear to Auscultation Cardiovascular: NL Sounds; No Murmurs; No JVD, RRR, No Edema Abdominal: NL Sounds; No Tenderness; No Distention Extremities: No Edema, No Clubbing, Cyanosis Skin: No Rash or Ulcers Neurological: Alert and Oriented x 3, NL Sensation, - - unsteady gait Nutrition: Taking PO's Result Diagrams: 01/25/19 11:30 01/27/19 10:20 Diagnostic Imaging: Patient Name: GUERDA MEDELLIN Medical Record#: [id number] Ordering Physician: Jamila REED Acct.#: [id number] : 1930 Age: 88 Sex: F Location: EMERGENCY DEPARTMENT Exam Date: 01/25/19953 ADM Status: REG ER Order Information: CT BRAIN WO Accession Number: [id number] CPT: 93392 Indication: Head injury. CT of the brain performed without IV contrast. Ventricular structures are midline. No midline shift is noted. The extra-axial bases are unremarkable. There is no evidence of intracranial mass or hemorrhage. No other high or low density lesions identified. Mastoid air cells and paranasal sinuses are unremarkable. Mucus retention cyst in the left maxillary sinus. When compared to previous exam of January 24, 2019 no significant change is noted. IMPRESSION: No intracranial mass or hemorrhage is noted. Patient Name: GUERDA MEDELLIN Medical Record#: [id number] Ordering Physician: Jamila REED Acct.#: [id number] : 1930 Age: 88 Sex: F Location: EMERGENCY DEPARTMENT Exam Date: 01/25/19953 ADM Status: REG ER Order Information: CT MAXILLOFACIAL W/O Accession Number: [id number] CPT: 94503 INDICATION: Facial trauma. COMPARISON: There are no relevant prior studies available for comparison. TECHNIQUE: Contiguous axial sections of the axial images of the facial bones were obtained and reconstructed in the coronal and sagittal planes. FINDINGS: Soft tissue swelling is noted anterior to the mandible. The ponce of the orbits and maxillary sinuses appear intact. The zygomatic arches appear intact. There is no evidence for a fracture of the mandible. The nasal bones appear intact. There is moderate deviation of the nasal septum toward the right side. The pterygoid plates appear intact. There is mild mucosal thickening within the frontal and ethmoid sinuses. There are 2 nodules within the left maxillary sinus measuring up to 1.5 cm in size most consistent with mucous retention cysts or polyps. The ostiomeatal complexes are patent bilaterally. IMPRESSION: NO EVIDENCE OF FRACTURE. Patient Name: GUERDA MEDELLIN Medical Record#: [id number] Ordering Physician: Jamila REED Acct.#: [id number] : 1930 Age: 88 Sex: F Location: EMERGENCY DEPARTMENT Exam Date: 01/25/19 0955 ADM Status: REG ER Order Information: CT SPINE CERVICAL W/O Accession Number: [id number] CPT: 95340 Indication: Neck injury, facial injury. CT of the cervical spine was obtained in the axial plane. Sagittal and coronal reconstructed images were obtained. The skull base demonstrates no evidence of fracture. Mastoid air cells are unremarkable. Degenerative changes of the atlantoaxial joint is noted. The C1 ring is intact. At C2-C3 there is degenerative disc disease. No fracture is identified. No central foraminal stenosis is noted. Facet arthropathy at C2-C3 is noted bilaterally. At C3-C4 spondylitic ridge with minimal grade 1 spondylolisthesis is noted. Facet arthropathy is noted. No central or foraminal stenosis is noted. At C4-C5 minimal grade 1 spondylolisthesis is noted. No central or foraminal stenosis is noted. Right uncovertebral joint hypertrophy narrows the right foramen. At C5-C6 there is complete loss of disc height. Facet arthropathy is noted. Osteophyte for examination is noted. At C6-C7 degenerative disc disease with spondylytic ridge flattens the thecal sac. Ventral and dorsal osteophyte formation is noted. At C7-T1 disc is preserved in height and signal. No fracture is identified. IMPRESSION: Minimal grade 1 spondylolisthesis of C3 on 4 and C4 on 5. Marked degenerative disc disease at C5-C6 with complete loss of the disc space with spondylytic ridge. Degenerative disc disease at C6-C7 with ventral and dorsal osteophyte formation. No fracture is noted. Patient Name: GUERDA MEDELLIN Medical Record#: [id number] Ordering Physician: Jamila REED Acct.#: [id number] : 1930 Age: 88 Sex: F Location: EMERGENCY DEPARTMENT Exam Date: 01/25/19 1149 ADM Status: REG ER Order Information: KNEE RIGHT 4+ VWS Accession Number: [id number] CPT: 48661 Indication: Right knee pain. 4 views of the right knee demonstrate joint space narrowing in the medial compartment of the right knee. There is no fracture or dislocation. No other bone or joint abnormality is identified. No significant joint effusion is noted. IMPRESSION: Degenerative changes medial compartment right knee. Patient Name: GUERDA MEDELLIN Medical Record#: [id number] Ordering Physician: Monse Bass BUDGET DIRECTOR Acct.#: [id number] : 1930 Age: 88 Sex: F Location: [address] [place] [address] - MEDICAL Exam Date: 01/25/191845 ADM Status: ADM Betty Order Information: CHEST PA & LAT 2 VWS Accession Number: [id number] CPT: 38276 INDICATION: Altered mental status. Falls. History of tobacco use. COMPARISON: January 24, 2019 TECHNIQUE: Dual energy PA and routine lateral views of the chest were obtained. REPORT: Aortic valve endograft. Cardiomegaly. Mild prominence of the central pulmonary vasculature and diffuse mild prominence of the interstitial markings. Probable small pleural effusions. Retrocardiac hiatal hernia. IMPRESSION: #. Mild pulmonary vascular congestion and interstitial edema. Assess/Plan/Problems-Billing Assessment: This is an 88 year old female with history of CAD/SC, HTN, s/p valve replacement, RLS, asthma, COPD, depression, CHF and DONELL that presented to the ER with family after reported 2 week history of increasing day time fatigue, falls and increased ETOH use/intoxication. - Patient Problems (1) Falls frequently Code(s): R29.6 - REPEATED FALLS SNOMED Code(s): 743226405 Comment: - Imaging as above, no fractures evident - PT eval notes patient may benefit from IDANIA at discharge (2) Alcohol use disorder Code(s): PRJ5609 - SNOMED Code(s): 1900018 Comment: - Per family patient is drinking at night and overnight because of RLS and insomnia - ETOH level 66 at admission - Scored on WAM overnight, ativan provided - Continue MVI, thiamine and folate - Social work consulted and following - Stable (3) Toe fracture, left Code(s): S92.912A - UNSP FRACTURE OF LEFT TOE(S), INIT FOR CLOS FX SNOMED Code (s): 33132149 Comment: - Fracture noted on imaging earlier this month with no intervention; patient complaining of toe pain since ambulating with PT 01/26 - Repeat xray 01/27 with no changes from last - Follow up outpatient (4) Lactic acidosis Code(s): E87.2 - ACIDOSIS SNOMED Code(s): 98316728 Comment: - In setting of ETOH intoxication and hypoperfusion, now resolved (5) HTN (hypertension) Code(s): I10 - ESSENTIAL (PRIMARY) HYPERTENSION SNOMED Code(s): 08637565 Comment: - Continue metoprolol (6) Restless leg syndrome Comment: - Started on gabapentin which helped initially, but then not last night - Will continue evening dose and PRN given recent cessation of alcohol and potential detox support, however, 1mg of ativan seemed to help the patient sleep more - Will continue 1mg ativan at bedtime and monitor for somnolence or delerium (7) CAD (coronary artery disease) Code(s): I25.10 - ATHSCL HEART DISEASE OF [place] CORONARY ARTERY W/O ANG PCTRS SNOMED Code(s): 45946027 Comment: - With hx of SC in the past - Mildly elevated trops at admission with no chest pain or anginal equivalents , likely demand and hypoperfusion in setting of intoxication - Continue ASA and BB (8) COPD (chronic obstructive pulmonary disease) Code(s): J44.9 - CHRONIC OBSTRUCTIVE PULMONARY DISEASE, UNSPECIFIED SNOMED Code(s): 49224135 Comment: - On O2 at night and PRN - Not in exacerbation (9) DVT prophylaxis Code(s): Z29.9 - ENCOUNTER FOR PROPHYLACTIC MEASURES, UNSPECIFIED SNOMED Code( s): 163769051 Comment: - Lovenox subq (10) Full code status Code(s): Z78.9 - OTHER SPECIFIED HEALTH STATUS SNOMED Code(s): 713866651 Status and Disposition: Patient medically optimized for discharge today, however family concerned about safe discharge given ETOH use disorder and functional ability. Will discuss with case management further, as patient's family appealing discharge. Will need IDANIA which will not be available until Wednesday or Wednesday.
[2019-01-28] MEDS: Docusate CAP* 100 MG PO PRN (20:22)
[2019-01-28] MEDS: Melatonin 3 MG TAB PO PRN (20:23)
[2019-01-28] MEDS: Enoxaparin(*) 40 MG/0.4 ML SYR SUBCUT SCH (20:24)
[2019-01-28] MEDS ORDERED: LORazepam TAB(*) 1 MG PO SCH (21:00)
[2019-01-28] MEDS: LORazepam TAB(*) 1 MG PO SCH (22:27)
[2019-01-28] MEDS: Gabapentin CAP(*) 100 MG PO PRN (22:28)
[2019-01-29] MEDS: Insulin LISPRO* 1 UNITS UNIT SUBCUT SCH ×3 (05:35→17:08)
[2019-01-29 06:48] LABS: Calcium 9.2 mg/dL (8.6-10.3); EGFR African American 118.7 (>60); EGFR Non-African American 98.1 (>60); Potassium 4.4 mmol/L (3.5-5.0)
--- NOTE | 2019-01-29 10:00 | PN ---
Subjective Date of Service: 01/29/19 Interval History: Patient sleeping on assessment. Needs verbal and tactile prompting to wake to answer questions. Denies pain, sob, cp, palpitations. Discussed status and plan of care with daughter and son in law at length. Discussed reasons why patient was more somnolent today and plans to decrease medications. Discussed patient etoh abuse and ptsd. Also discussed benefits of IDANIA if patient qualifies and is agreeable. Objective Active Medications: Acetaminophen (Tylenol Tab*) 650 mg PO Q4H PRN PRN Reason: FEVER/PAIN Albuterol/Ipratropium (Duoneb (Albuterol 2.5 Mg/Ipratropium 0.5 Mg)) 1 neb INH Q6H PRN PRN Reason: SHORTNESS OF BREATH Aspirin (Aspirin Ec Tab*) 81 mg PO DAILY [facility] Last Admin: 01/28/19 07:24 Dose: 81 mg Cholecalciferol (Vitamin D Tab*) 2,000 units PO DAILY [facility] Last Admin: 01/28/19 07:26 Dose: 2,000 units Dextrose (D50w Syringe 50 Ml*) 12.5 gm IV PUSH .FOR FS < 60 - SS PRN PRN Reason: FS < 60 Docusate Sodium (Colace Cap*) 100 mg PO BID PRN PRN Reason: CONSTIPATION Last Admin: 01/28/19 20:22 Dose: 100 mg Enoxaparin Sodium (Lovenox(*)) 40 mg SUBCUT Q24H [facility] Last Admin: 01/28/19 20:24 Dose: 40 mg Escitalopram Oxalate (Lexapro *) 10 mg PO DAILY [facility] Last Admin: 01/28/19 07:26 Dose: 10 mg Fluticasone Propionate (Flonase Nasal [place] 50mcg*) 2 spray BOTH NARES DAILY PRN PRN Reason: CONGESTION Folic Acid (Folvite Tab*) 1 mg PO DAILY [facility] Last Admin: 01/28/19 07:26 Dose: 1 mg Gabapentin (Neurontin Cap(*)) 100 mg PO DAILY PRN PRN Reason: restless leg Last Admin: 01/28/19 22:28 Dose: 100 mg Insulin Human Lispro (Humalog*) 0 units SUBCUT [facility]; Protocol Last Admin: 01/29/19 05:35 Dose: Not Given Lorazepam (Ativan Tab(*)) 0 - 6 mg PO .PER [facility] PROTOCOL [facility]; Protocol Last Admin: 01/28/19 22:27 Dose: 1 mg Lorazepam (Ativan Tab(*)) 1 mg PO BEDTIME [facility] Last Admin: 01/28/19 20:22 Dose: 1 mg Losartan Potassium (Cozaar Tab*) 12.5 mg PO DAILY [facility] Last Admin: 01/28/19 07:24 Dose: 12.5 mg Melatonin (Melatonin) 3 mg PO BEDTIME PRN PRN Reason: SLEEP Last Admin: 01/28/19 20:23 Dose: 3 mg Metoprolol Succinate (Toprol Xl Tab*) 12.5 mg PO EVERY OTHER DAY [facility] Last Admin: 01/27/19 08:51 Dose: 12.5 mg Multivitamins/Minerals (Theragran/Minerals Tab*) 1 tab PO DAILY [facility] Last Admin: 01/28/19 07:26 Dose: 1 tab Polyethylene Glycol/Electrolytes (Miralax*) 17 gm PO DAILY PRN PRN Reason: CONSTIPATION Last Admin: 01/28/19 07:20 Dose: 17 gm Thiamine HCl (Vitamin B-1 Tab*) 100 mg PO DAILY [facility] Last Admin: 01/28/19 07:26 Dose: 100 mg Torsemide (Torsemide) 10 mg PO SuTh@0900 [facility] Last Admin: 01/26/19 08:05 Dose: 10 mg Vital Signs - 8 hr 01/29/19 01/29/19 01/29/19 02:41 02:42 02:57 Temperature 97.9 F Pulse Rate 94 Respiratory 18 18 20 Rate Blood Pressure 143/68 (mmHg) O2 Sat by Pulse 97 Oximetry 01/29/19 01/29/19 01/29/19 06:26 06:53 07:25 Temperature 97.7 F 97.1 F Pulse Rate 87 72 Respiratory 18 20 18 Rate Blood Pressure 153/73 118/41 (mmHg) O2 Sat by Pulse 99 95 Oximetry Oxygen Devices in Use Now: Nasal Cannula Appearance: Lethargic, NAD Eyes: No Scleral Icterus, PERRLA Ears/Nose/Mouth/Throat: Clear Oropharnyx, Mucous Membranes Moist Neck: NL Appearance and Movements; NL JVP Respiratory: Symmetrical Chest Expansion and Respiratory Effort, - - Upper resp coarse breath sounds anteriorly, but remainder clear Cardiovascular: NL Sounds; No Murmurs; No JVD, RRR, - - Bilateral LE edema +1 Abdominal: NL Sounds; No Tenderness; No Distention Lymphatic: No Cervical Adenopathy Extremities: No Clubbing, Cyanosis Skin: No Rash or Ulcers Neurological: NL Muscle Strength and Tone, - - Lethargic, but responds to voice and tactile stim. Follows command and strength equal Nutrition: Taking PO's Result Diagrams: 01/25/19 11:30 01/29/19 06:15 Additional Lab and Data: Laboratory Results - last 24 hr 01/28/19 01/28/19 01/29/19 11:07 16:24 05:34 Sodium Potassium Chloride Carbon Dioxide Anion Gap BUN Creatinine Est GFR ( Amer) Est GFR (Non-Af Amer) BUN/Creatinine Ratio Glucose POC Glucose (mg/dL) 190 H 141 H 132 H Calcium 01/29/19 06:15 Sodium 135 Potassium 4.4 Chloride 100 L Carbon Dioxide 32 Anion Gap 3 BUN 18 Creatinine 0.58 Est GFR ( Amer) 118.7 Est GFR (Non-Af Amer) 98.1 BUN/Creatinine Ratio 31.0 H Glucose 121 H POC Glucose (mg/dL) Calcium 9.2 Microbiology and Other Data: . Diagnostic Imaging: . Assess/Plan/Problems-Billing Assessment: This is an 88 year old female with history of CAD/MS, HTN, s/p valve replacement, RLS, asthma, COPD, depression, CHF and DONELL that presented to the ER with family after reported 2 week history of increasing day time fatigue, falls and increased ETOH use/intoxication. - Patient Problems (1) Somnolence Comment: - Somnolent this moring and needing frequent verbal and tactile stim to engage in assessment and ROS - I suspect secondary to medications, therefore, sedating medications decreased. See below - ABG and chest xray ordered (2) Restless leg syndrome Comment: - Started on gabapentin which helped initially, but then patient reported no change - Cont Gabapentin PRN given recent cessation of alcohol and potential detox support, - Patient started on 1mg of ativan at bedtime for sleep which she reported helped, but patient received a total of 2 mg last evening approx 2 hrs apart due to schedule bedtime dose and WAM dose. She is somnolent this morning, therefore, I will discontinue WAM dose (she is > 48 from last drink) and I will decrease bedtime dose to reduce somnolence (3) Alcohol use disorder Comment: - Per family patient is drinking at night and overnight because of RLS and insomnia - ETOH level 66 at admission - Scored on WAM overnight and received prn ativan (2 hrs after bedtime dose) - Continue MVI, thiamine and folate - Social work consulted and following - Stable (4) CAD (coronary artery disease) Comment: - With hx of [place] in the past - Mildly elevated trops at admission with no chest pain or anginal equivalents , likely demand and hypoperfusion in setting of intoxication - Continue ASA and BB and Torsemide (5) Aortic stenosis Comment: - mild to mod - s/p TAVR (6) COPD (chronic obstructive pulmonary disease) Comment: - On O2 at night and PRN at home of 2L - Not in exacerbation - Currently on 3L which I suspect is secondary to lethargy (7) Falls frequently Comment: - Imaging completed and no fractures evident - PT eval notes patient may benefit from IDANIA at discharge - OT ordered - PMRU consult ordered (8) HTN (hypertension) Comment: - Continue metoprolol and losartan (9) Lactic acidosis Comment: - In setting of ETOH intoxication and hypoperfusion, now resolved (10) Toe fracture, left Comment: - Fracture noted on imaging earlier this month with no intervention; patient complaining of toe pain since ambulating with PT 01/26 - Repeat xray 01/27 with no changes from last - Follow up outpatient (11) DVT prophylaxis Comment: - Lovenox subq (12) Full code status Status and Disposition: Inpatient until medically stable. Will need IDANIA. Attending: Kodi Joseph
[2019-01-29] MEDS: Cholecalciferol TAB* 1000 UNITS PO SCH (10:20)
[2019-01-29] MEDS: Folic Acid TAB* 1 MG PO SCH (10:20)
[2019-01-29] MEDS: Aspirin EC TAB* 81 MG TAB.EC PO SCH (10:20)
[2019-01-29] MEDS: Escitalopram * 10 MG TAB PO SCH (10:20)
[2019-01-29] MEDS: Multivitamins/Minerals TAB PO SCH (10:21)
[2019-01-29] MEDS: Thiamine TAB* 100 MG TAB PO SCH (10:21)
[2019-01-29] MEDS: Losartan TAB* 25 MG PO SCH (10:21)
[2019-01-29] MEDS: Torsemide TAB 10 MG PO SCH (10:21)
[2019-01-29] MEDS: Metoprolol Succinate XL TAB* 25 MG PO SCH (10:21)
[2019-01-29] MEDS: Docusate CAP* 100 MG PO PRN (20:44)
[2019-01-29] MEDS: Melatonin 3 MG TAB PO PRN (20:44)
[2019-01-29] MEDS: Enoxaparin(*) 40 MG/0.4 ML SYR SUBCUT SCH (20:46)
[2019-01-29] MEDS ORDERED: LORazepam TAB(*) 0.5 MG PO SCH (21:00)
[2019-01-30 06:25] LABS: ABS Eosinophils 0.2 10^3/ul (0-0.6); ABS Lymphocytes 0.7 10^3/ul (1.0-4.8); ABS Monocytes 0.3 10^3/ul (0-0.8); ABS Neutrophils 2.6 10^3/ul (1.5-7.7); Eosinophil % 4.3 %; Hematocrit 28 % (35-47); Hemoglobin 8.6 g/dL (12.0-16.0); Mean Corpuscular HGB Conc 31 g/dL (31-36); Mean Corpuscular Hemoglobin 28 pg (27-31); Mean Corpuscular Volume 89 fL (80-97); Mean Platelet Volume 8.3 fL (7.4-10.4); Platelet Count 109 10^3/uL (150-450); Red Cell Distribution Width 16 % (10.5-15); White Blood Count 3.9 10^3/uL (3.5-10.8)
[2019-01-30 06:43] LABS: Anion Gap 1 mmol/L (2-11); BUN/Creatinine Ratio 31.3 (8-20); Blood Urea Nitrogen 21 mg/dL (6-24); CO2 Carbon Dioxide 39 mmol/L (22-32); Calcium 9.1 mg/dL (8.6-10.3); Chloride 99 mmol/L (101-111); EGFR African American 100.5 (>60); EGFR Non-African American 83.1 (>60); Glucose 126 mg/dL (70-100); Magnesium 1.9 mg/dL (1.9-2.7); Potassium 4.6 mmol/L (3.5-5.0); Sodium 139 mmol/L (135-145)
[2019-01-30] MEDS: Insulin LISPRO* 1 UNITS UNIT SUBCUT SCH ×3 (08:27→17:24)
[2019-01-30] MEDS: Cholecalciferol TAB* 1000 UNITS PO SCH (08:37)
[2019-01-30] MEDS: Thiamine TAB* 100 MG TAB PO SCH (08:37)
[2019-01-30] MEDS: Multivitamins/Minerals TAB PO SCH (08:37)
[2019-01-30] MEDS: Escitalopram * 10 MG TAB PO SCH (08:38)
[2019-01-30] MEDS: Folic Acid TAB* 1 MG PO SCH (08:38)
[2019-01-30] MEDS: Losartan TAB* 25 MG PO SCH (08:38)
[2019-01-30] MEDS: Aspirin EC TAB* 81 MG TAB.EC PO SCH (08:38)
[2019-01-30] MEDS ORDERED: Magnesium Sulfate 2 GM IV* 2 GM/50 ML BAG IVPB ONE (10:28)
--- NOTE | 2019-01-30 15:31 | PN ---
Subjective Date of Service: 01/30/19 Interval History: Per nursing patient did not sleep well last evening. On assessment patient is sleeping in recliner. She is easy to wake and is much more alert and conversing better today. She reports she is tired because she did not sleep well d/t her RLS. She denies cp, palpitations, fever, chills, anxiety, nausea. Objective Active Medications: Acetaminophen (Tylenol Tab*) 650 mg PO Q4H PRN PRN Reason: FEVER/PAIN Albuterol/Ipratropium (Duoneb (Albuterol 2.5 Mg/Ipratropium 0.5 Mg)) 1 neb INH Q6H PRN PRN Reason: SHORTNESS OF BREATH Aspirin (Aspirin Ec Tab*) 81 mg PO DAILY [facility] Last Admin: 01/30/19 08:38 Dose: 81 mg Cholecalciferol (Vitamin D Tab*) 2,000 units PO DAILY [facility] Last Admin: 01/30/19 08:37 Dose: 2,000 units Dextrose (D50w Syringe 50 Ml*) 12.5 gm IV PUSH .FOR FS < 60 - SS PRN PRN Reason: FS < 60 Docusate Sodium (Colace Cap*) 100 mg PO BID PRN PRN Reason: CONSTIPATION Last Admin: 01/29/19 20:44 Dose: 100 mg Enoxaparin Sodium (Lovenox(*)) 40 mg SUBCUT Q24H [facility] Last Admin: 01/29/19 20:46 Dose: 40 mg Escitalopram Oxalate (Lexapro *) 10 mg PO DAILY [facility] Last Admin: 01/30/19 08:38 Dose: 10 mg Fluticasone Propionate (Flonase Nasal [place] 50mcg*) 2 spray BOTH NARES DAILY PRN PRN Reason: CONGESTION Folic Acid (Folvite Tab*) 1 mg PO DAILY [facility] Last Admin: 01/30/19 08:38 Dose: 1 mg Gabapentin (Neurontin Cap(*)) 100 mg PO DAILY PRN PRN Reason: restless leg Last Admin: 01/28/19 22:28 Dose: 100 mg Insulin Human Lispro (Humalog*) 0 units SUBCUT AC [facility]; Protocol Last Admin: 01/30/19 13:45 Dose: 1 unit Lorazepam (Ativan Tab(*)) 0.5 mg PO BEDTIME [facility] Last Admin: 01/29/19 20:44 Dose: 0.5 mg Losartan Potassium (Cozaar Tab*) 12.5 mg PO DAILY [facility] Last Admin: 01/30/19 08:38 Dose: 12.5 mg Melatonin (Melatonin) 3 mg PO BEDTIME PRN PRN Reason: SLEEP Last Admin: 01/29/19 20:44 Dose: 3 mg Metoprolol Succinate (Toprol Xl Tab*) 12.5 mg PO EVERY OTHER DAY [facility] Last Admin: 01/29/19 10:21 Dose: 12.5 mg Multivitamins/Minerals (Theragran/Minerals Tab*) 1 tab PO DAILY [facility] Last Admin: 01/30/19 08:37 Dose: 1 tab Polyethylene Glycol/Electrolytes (Miralax*) 17 gm PO DAILY PRN PRN Reason: CONSTIPATION Last Admin: 01/28/19 07:20 Dose: 17 gm Thiamine HCl (Vitamin B-1 Tab*) 100 mg PO DAILY [facility] Last Admin: 01/30/19 08:37 Dose: 100 mg Torsemide (Torsemide) 10 mg PO SuTh@0900 [facility] Last Admin: 01/29/19 10:21 Dose: 10 mg Vital Signs - 8 hr 01/30/19 01/30/19 01/30/19 07:55 11:21 11:30 Temperature 97.6 F 97.4 F Pulse Rate 78 71 Respiratory 17 17 Rate Blood Pressure 146/65 92/71 137/61 (mmHg) O2 Sat by Pulse 97 98 Oximetry Oxygen Devices in Use Now: Nasal Cannula Appearance: Comfortable, NAD Eyes: No Scleral Icterus, PERRLA Ears/Nose/Mouth/Throat: Clear Oropharnyx, Mucous Membranes Moist Neck: NL Appearance and Movements; NL JVP Respiratory: Symmetrical Chest Expansion and Respiratory Effort, Clear to Auscultation Cardiovascular: NL Sounds; No Murmurs; No JVD, RRR, No Edema Abdominal: NL Sounds; No Tenderness; No Distention Lymphatic: No Cervical Adenopathy Extremities: No Clubbing, Cyanosis Skin: No Rash or Ulcers Neurological: Alert and Oriented x 3, NL Muscle Strength and Tone Nutrition: Taking PO's Result Diagrams: 01/30/19 06:20 01/30/19 06:20 Additional Lab and Data: Laboratory Results - last 24 hr 01/29/19 01/29/19 01/30/19 17:00 20:24 06:20 WBC 3.9 RBC 3.10 L Hgb 8.6 L Hct 28 L MCV 89 MCH 28 MCHC 31 RDW 16 H Plt Count 109 L MPV 8.3 Neut % (Auto) 67.0 Lymph % (Auto) 19.0 [place] % (Auto) 8.9 Eos % (Auto) 4.3 Baso % (Auto) 0.8 Absolute Neuts (auto) 2.6 Absolute Lymphs (auto) 0.7 L Absolute Monos (auto) 0.3 Absolute Eos (auto) 0.2 Absolute Basos (auto) 0.0 Absolute Nucleated RBC 0.0 Nucleated RBC % 0.0 Sodium Potassium Chloride Carbon Dioxide Anion Gap BUN Creatinine Est GFR ( Amer) Est GFR (Non-Af Amer) BUN/Creatinine Ratio Glucose POC Glucose (mg/dL) 117 H 134 H Calcium Magnesium 01/30/19 01/30/19 01/30/19 06:20 08:26 11:55 WBC RBC Hgb Hct MCV MCH MCHC RDW Plt Count MPV Neut % (Auto) Lymph % (Auto) [place] % (Auto) Eos % (Auto) Baso % (Auto) Absolute Neuts (auto) Absolute Lymphs (auto) Absolute Monos (auto) Absolute Eos (auto) Absolute Basos (auto) Absolute Nucleated RBC Nucleated RBC % Sodium 139 Potassium 4.6 Chloride 99 L Carbon Dioxide 39 H Anion Gap 1 L BUN 21 Creatinine 0.67 Est GFR ( Amer) 100.5 Est GFR (Non-Af Amer) 83.1 BUN/Creatinine Ratio 31.3 H Glucose 126 H POC Glucose (mg/dL) 135 H 155 H Calcium 9.1 Magnesium 1.9 Microbiology and Other Data: . Diagnostic Imaging: . Assess/Plan/Problems-Billing Assessment: This is an 88 year old female with history of CAD/IN, HTN, s/p valve replacement, RLS, asthma, COPD, depression, CHF and DONELL that presented to the ER with family after reported 2 week history of increasing day time fatigue, falls and increased ETOH use/intoxication. - Patient Problems (1) Somnolence Comment: - Much less somnulent this morning. Reports she is tired from not sleeping well last evening (2) Restless leg syndrome Comment: - Started on gabapentin which helped initially, but then patient reported no change - Cont Gabapentin PRN given recent cessation of alcohol and potential detox support, - Patient lethargic after 2 mg of Ativan in a 2 hr period, but did not rest well on 0.5 last evening. I will increase to 1 mg at night - Discussed with daughter the importance of seeing neurologist as outpatient for further evaluation of RLS and treatment. (3) Alcohol use disorder Comment: - Per family patient is drinking at night and overnight because of RLS and insomnia - ETOH level 66 at admission - WAM discontinued - Continue MVI, thiamine and folate - Social work consulted and following - Stable (4) CAD (coronary artery disease) Comment: - With hx of IN in the past - Mildly elevated trops at admission with no chest pain or anginal equivalents , likely demand and hypoperfusion in setting of intoxication - Continue ASA and BB and Torsemide (5) Aortic stenosis Comment: - mild to mod - s/p TAVR (6) COPD (chronic obstructive pulmonary disease) Comment: - On O2 at night and PRN at home of 2L - Not in exacerbation - Currently on 2L (7) Falls frequently Comment: - Imaging completed and no fractures evident - PT eval notes patient may benefit from IDANIA at discharge - OT ordered - PMRU consult ordered (8) HTN (hypertension) Comment: - Continue metoprolol and losartan (9) Lactic acidosis Comment: - In setting of ETOH intoxication and hypoperfusion, now resolved (10) Toe fracture, left Comment: - Fracture noted on imaging earlier this month with no intervention; patient complaining of toe pain since ambulating with PT 01/26 - Repeat xray 01/27 with no changes from last - Follow up outpatient (11) DVT prophylaxis Comment: - Lovenox subq (12) Full code status Status and Disposition: Inpatient until medically stable. Will need IDANIA. Attending: Kodi Joseph
[2019-01-30 16:02] LABS: % Iron Saturation 5 % (15-55); Iron 22 ug/dL (50-212); Total Iron Binding Capacity 454 mcg/dL (250-450); Transferrin 324 mg/dL (203-362)
[2019-01-30 16:24] LABS: Ferritin 14.7 ng/mL (11-307)
[2019-01-30 16:27] LABS: Folate > 20.00 ng/mL (>3.99)
[2019-01-30] MEDS: Enoxaparin(*) 40 MG/0.4 ML SYR SUBCUT SCH (20:15)
[2019-01-30] MEDS: Melatonin 3 MG TAB PO PRN (20:18)
[2019-01-30] MEDS ORDERED: LORazepam TAB(*) 1 MG PO SCH (21:00)
[2019-01-31 06:01] LABS: ABS Eosinophils 0.2 10^3/ul (0-0.6); ABS Lymphocytes 0.6 10^3/ul (1.0-4.8); ABS Monocytes 0.4 10^3/ul (0-0.8); ABS Neutrophils 2.8 10^3/ul (1.5-7.7); Eosinophil % 5.4 %; Hematocrit 28 % (35-47); Hemoglobin 8.8 g/dL (12.0-16.0); Lymphocyte % 15.3 %; Mean Corpuscular HGB Conc 31 g/dL (31-36); Mean Corpuscular Hemoglobin 28 pg (27-31); Mean Corpuscular Volume 90 fL (80-97); Mean Platelet Volume 8.7 fL (7.4-10.4); Platelet Count 106 10^3/uL (150-450); Red Blood Count 3.11 10^6 /uL (3.70-4.87); Red Cell Distribution Width 17 % (10.5-15)
[2019-01-31 06:17] LABS: BUN/Creatinine Ratio 29.6 (8-20); Calcium 8.9 mg/dL (8.6-10.3); EGFR African American 128.9 (>60); EGFR Non-African American 106.5 (>60); Magnesium 2.2 mg/dL (1.9-2.7); Potassium 3.9 mmol/L (3.5-5.0)
[2019-01-31] MEDS: Insulin LISPRO* 1 UNITS UNIT SUBCUT SCH ×3 (07:40→17:10)
[2019-01-31] MEDS: Losartan TAB* 25 MG PO SCH (10:19)
[2019-01-31] MEDS: Thiamine TAB* 100 MG TAB PO SCH (10:20)
[2019-01-31] MEDS: Folic Acid TAB* 1 MG PO SCH (10:20)
[2019-01-31] MEDS: Cholecalciferol TAB* 1000 UNITS PO SCH (10:20)
[2019-01-31] MEDS: Metoprolol Succinate XL TAB* 25 MG PO SCH (10:20)
[2019-01-31] MEDS: Aspirin EC TAB* 81 MG TAB.EC PO SCH (10:20)
[2019-01-31] MEDS: Multivitamins/Minerals TAB PO SCH (10:21)
[2019-01-31] MEDS: Escitalopram * 10 MG TAB PO SCH (10:21)
--- NOTE | 2019-01-31 16:40 | PN ---
Subjective Date of Service: 01/31/19 Interval History: Sleeping in recliner on assessment. She is somewhat more somnolent today. She needs verbal stim to continue engagement in ROS and assessment. Denies cp, palpitations, sob, weakness, numbness, fever, chills. Objective Active Medications: Acetaminophen (Tylenol Tab*) 650 mg PO Q4H PRN PRN Reason: FEVER/PAIN Albuterol/Ipratropium (Duoneb (Albuterol 2.5 Mg/Ipratropium 0.5 Mg)) 1 neb INH Q6H PRN PRN Reason: SHORTNESS OF BREATH Aspirin (Aspirin Ec Tab*) 81 mg PO DAILY [facility] Last Admin: 01/31/19 10:20 Dose: 81 mg Cholecalciferol (Vitamin D Tab*) 2,000 units PO DAILY [facility] Last Admin: 01/31/19 10:20 Dose: 2,000 units Dextrose (D50w Syringe 50 Ml*) 12.5 gm IV PUSH .FOR FS < 60 - SS PRN PRN Reason: FS < 60 Docusate Sodium (Colace Cap*) 100 mg PO BID PRN PRN Reason: CONSTIPATION Last Admin: 01/29/19 20:44 Dose: 100 mg Enoxaparin Sodium (Lovenox(*)) 40 mg SUBCUT Q24H [facility] Last Admin: 01/30/19 20:15 Dose: 40 mg Escitalopram Oxalate (Lexapro *) 10 mg PO DAILY [facility] Last Admin: 01/31/19 10:21 Dose: 10 mg Fluticasone Propionate (Flonase Nasal [place] 50mcg*) 2 spray BOTH NARES DAILY PRN PRN Reason: CONGESTION Last Admin: 01/31/19 10:19 Dose: 2 spray Folic Acid (Folvite Tab*) 1 mg PO DAILY [facility] Last Admin: 01/31/19 10:20 Dose: 1 mg Gabapentin (Neurontin Cap(*)) 100 mg PO DAILY PRN PRN Reason: restless leg Last Admin: 01/28/19 22:28 Dose: 100 mg Insulin Human Lispro (Humalog*) 0 units SUBCUT [facility]; Protocol Last Admin: 01/31/19 13:03 Dose: 2 unit Losartan Potassium (Cozaar Tab*) 12.5 mg PO DAILY [facility] Last Admin: 01/31/19 10:19 Dose: 12.5 mg Melatonin (Melatonin) 3 mg PO BEDTIME PRN PRN Reason: SLEEP Last Admin: 01/30/19 20:18 Dose: 3 mg Metoprolol Succinate (Toprol Xl Tab*) 12.5 mg PO EVERY OTHER DAY [facility] Last Admin: 01/31/19 10:20 Dose: 12.5 mg Multivitamins/Minerals (Theragran/Minerals Tab*) 1 tab PO DAILY [facility] Last Admin: 01/31/19 10:21 Dose: 1 tab Polyethylene Glycol/Electrolytes (Miralax*) 17 gm PO DAILY PRN PRN Reason: CONSTIPATION Last Admin: 01/28/19 07:20 Dose: 17 gm Ropinirole HCl (Requip Tab*) 0.25 mg PO DAILY [facility] Thiamine HCl (Vitamin B-1 Tab*) 100 mg PO DAILY [facility] Last Admin: 01/31/19 10:20 Dose: 100 mg Torsemide (Torsemide) 10 mg PO SuTh@0900 [facility] Last Admin: 01/29/19 10:21 Dose: 10 mg Vital Signs - 8 hr 01/31/19 11:35 Temperature 98.2 F Pulse Rate 81 Respiratory 20 Rate Blood Pressure 129/53 (mmHg) O2 Sat by Pulse 87 Oximetry Oxygen Devices in Use Now: Nasal Cannula Appearance: Lethargic, NAD Eyes: No Scleral Icterus, PERRLA Ears/Nose/Mouth/Throat: Clear Oropharnyx, Mucous Membranes Moist Neck: NL Appearance and Movements; NL JVP Respiratory: Symmetrical Chest Expansion and Respiratory Effort, Clear to Auscultation Cardiovascular: NL Sounds; No Murmurs; No JVD, RRR, No Edema Abdominal: NL Sounds; No Tenderness; No Distention Lymphatic: No Cervical Adenopathy Extremities: No Edema Skin: No Rash or Ulcers Neurological: Alert and Oriented x 3, NL Muscle Strength and Tone Nutrition: Taking PO's Result Diagrams: 01/31/19 05:31 01/31/19 05:32 Additional Lab and Data: Laboratory Results - last 24 hr 01/31/19 01/31/19 01/31/19 05:31 05:32 07:24 WBC 4.0 RBC 3.11 L Hgb 8.8 L Hct 28 L MCV 90 MCH 28 MCHC 31 RDW 17 H Plt Count 106 L MPV 8.7 Neut % (Auto) 69.1 Lymph % (Auto) 15.3 [place] % (Auto) 9.1 Eos % (Auto) 5.4 Baso % (Auto) 1.1 Absolute Neuts (auto) 2.8 Absolute Lymphs (auto) 0.6 L Absolute Monos (auto) 0.4 Absolute Eos (auto) 0.2 Absolute Basos (auto) 0.0 Absolute Nucleated RBC 0.0 Nucleated RBC % 0.0 Sodium 139 Potassium 3.9 Chloride 99 L Carbon Dioxide 37 H Anion Gap 3 BUN 16 Creatinine 0.54 Est GFR ( Amer) 128.9 Est GFR (Non-Af Amer) 106.5 BUN/Creatinine Ratio 29.6 H Glucose 126 H POC Glucose (mg/dL) 139 H Calcium 8.9 Magnesium 2.2 01/31/19 01/31/19 12:12 16:53 WBC RBC Hgb Hct MCV MCH MCHC RDW Plt Count MPV Neut % (Auto) Lymph % (Auto) [place] % (Auto) Eos % (Auto) Baso % (Auto) Absolute Neuts (auto) Absolute Lymphs (auto) Absolute Monos (auto) Absolute Eos (auto) Absolute Basos (auto) Absolute Nucleated RBC Nucleated RBC % Sodium Potassium Chloride Carbon Dioxide Anion Gap BUN Creatinine Est GFR ( Amer) Est GFR (Non-Af Amer) BUN/Creatinine Ratio Glucose POC Glucose (mg/dL) 219 H 145 H Calcium Magnesium Microbiology and Other Data: . Diagnostic Imaging: . Assess/Plan/Problems-Billing Assessment: This is an 88 year old female with history of CAD/VT, HTN, s/p valve replacement, RLS, asthma, COPD, depression, CHF and DONELL that presented to the ER with family after reported 2 week history of increasing day time fatigue, falls and increased ETOH use/intoxication. - Patient Problems (1) Iron deficiency Comment: - Mildy anemic but near her baseline - Iron studies ordered and noted to be iron deficient which could be contributing to her RLS. PO iron supplemention ordered. Stool guaic ordered (2) Somnolence Comment: - Mildly somnulent again this morning. - I am concerned this is related to ativan despite the lower dosing. I discussed the medications and my cocern with her daughter and she is agreeable to patient no longer receiving ativan and trying requip again (daughter reports this might have worked for her in the past). (3) Restless leg syndrome Comment: - Started on gabapentin which helped initially, but then patient reported no change - Cont Gabapentin PRN given recent cessation of alcohol and potential detox support, - Somnulence with Ativan - Ordered Requip - Discussed with daughter the importance of seeing neurologist as outpatient for further evaluation of RLS and treatment. - Also noted to be iron deficient therefore stool for blood and iron PO ordered. This could be contributing to her RLS (4) Alcohol use disorder Comment: - Per family patient is drinking at night and overnight because of RLS and insomnia - ETOH level 66 at admission - WAM discontinued - Continue MVI, thiamine and folate - Social work consulted and following - Stable (5) CAD (coronary artery disease) Comment: - With hx of VT in the past - Mildly elevated trops at admission with no chest pain or anginal equivalents , likely demand and hypoperfusion in setting of intoxication - Continue ASA and BB and Torsemide (6) Aortic stenosis Comment: - mild to mod - s/p TAVR (7) COPD (chronic obstructive pulmonary disease) Comment: - On O2 at night and PRN at home of 2L - Not in exacerbation - Currently on 2L (8) Falls frequently Comment: - Imaging completed and no fractures evident - PT eval notes patient may benefit from [facility] at discharge - OT ordered - PMRU consult ordered (9) HTN (hypertension) Comment: - Continue metoprolol and losartan (10) Lactic acidosis Comment: - In setting of ETOH intoxication and hypoperfusion, now resolved (11) Toe fracture, left Comment: - Fracture noted on imaging earlier this month with no intervention; patient complaining of toe pain since ambulating with PT 01/26 - Repeat xray 01/27 with no changes from last - Follow up outpatient (12) DVT prophylaxis Comment: - Lovenox subq (13) Full code status Status and Disposition: Inpatient. Discharge to [facility] tomorrow. Attending: Ting Ramey
[2019-01-31] MEDS: Ropinirole TAB* 0.5 MG TAB PO SCH (18:33)
[2019-01-31] MEDS: Melatonin 3 MG TAB PO PRN (21:23)
[2019-01-31] MEDS: Ferrous Sulfate TAB* 325 MG PO SCH (21:23)
[2019-01-31] MEDS: Enoxaparin(*) 40 MG/0.4 ML SYR SUBCUT SCH (21:24)
[2019-02-01] MEDS: Gabapentin CAP(*) 100 MG PO PRN (01:36)
[2019-02-01] MEDS: Insulin LISPRO* 1 UNITS UNIT SUBCUT SCH ×2 (08:05→12:34)
[2019-02-01] MEDS: Cholecalciferol TAB* 1000 UNITS PO SCH (08:10)
[2019-02-01] MEDS: Ropinirole TAB* 0.5 MG TAB PO SCH (08:11)
[2019-02-01] MEDS: Folic Acid TAB* 1 MG PO SCH (08:12)
[2019-02-01] MEDS: Ferrous Sulfate TAB* 325 MG PO SCH (08:12)
[2019-02-01] MEDS: Losartan TAB* 25 MG PO SCH (08:12)
[2019-02-01] MEDS: Thiamine TAB* 100 MG TAB PO SCH (08:13)
[2019-02-01] MEDS: Escitalopram * 10 MG TAB PO SCH (08:13)
[2019-02-01] MEDS: Aspirin EC TAB* 81 MG TAB.EC PO SCH (08:13)
[2019-02-01] MEDS: Multivitamins/Minerals TAB PO SCH (08:13)
--- NOTE | 2019-02-01 12:12 | DS ---
DISCHARGE SUMMARY: ADDENDUM: DISCHARGE MEDICATIONS: New home medications: 1. Thiamine 100 mg p.o. daily. 2. Requip 0.25 mg p.o. daily. 3. Multivitamin 1 tablet p.o. daily. 4. Melatonin 3 mg p.o. bedtime p.r.n. 5. Gabapentin 100 mg p.o. daily p.r.n. 6. Folic acid 1 mg p.o. daily. 7. Ferrous sulfate 325 mg p.o. t.i.d. 8. Colace 100 mg p.o. b.i.d. p.r.n. Continued home medications: 1. [id number] tablet one tablet p.o. daily. 2. Vitamin D 2000 units p.o. daily. 3. Aspirin 81 mg p.o. daily. 4. DuoNeb 1 inhalation q.6 hours p.r.n. 5. Flonase 2 sprays both nares daily p.r.n. 6. Lexapro 10 mg p.o. daily. 7. Avapro 37.5 mg p.o. daily. 8. Metoprolol succinate 12.5 mg p.o. every other day. 9. Magnesium oxide 133 mg p.o. b.i.d. 10. Nitroglycerin 0.4 mg sublingual q.5 minutes p.r.n. 11. Torsemide 10 mg p.o. on Sundays and . DISCONTINUED HOME MEDICATIONS: No home medications discontinued. ALISHA MENENDEZ, JAIRO [id number]/[facility] #: [id number]
--- NOTE | 2019-02-01 12:20 | DS ---
CC: Dr. Rudolph* DISCHARGE SUMMARY: DATE OF ADMISSION: 01/26/19 DATE OF DISCHARGE: 02/01/19 PRIMARY CARE PHYSICIAN: Dr. Rudolph. ATTENDING PHYSICIAN: Dr. Ting Ramey* (dictated by Alisha Menendez NP). PRIMARY DIAGNOSES: 1. Increased fatigue and falls. 2. Alcohol abuse. 3. Thrombocytopenia. 4. Iron-deficiency. 5. Restless leg syndrome. 6. Coronary artery disease. 7. Aortic stenosis. 8. Chronic obstructive pulmonary disease. 9. Hypertension. 10. Left toe fracture. HISTORY OF PRESENT ILLNESS/HOSPITAL COURSE: Mrs. Cronin is an 88-year-old female with past medical history significant for [place], hypertension, hyperlipidemia, diabetes, asthma, COPD, depression, DONELL, AF, CHF, RLS; who presented to the emergency department on 12/26/18 with complaints of increased fatigue x2 weeks and falling asleep on the toilet. For complete summary of events leading up to the patient's hospitalization, please see history and physical dictated by Monse Bass NP, but in short the patient was brought to the emergency room by her family given increased fatigue and increase in falls. While in the emergency room, the patient admitted to heavy alcohol use to treat restless leg and had a serum alcohol of 66. Given the patient's presenting concerns and concern for safety at home, the patient was admitted to the hospital for further evaluation and treatment. While in the hospital, the patient was in the medical floor. She underwent multiple imaging including CT of the brain, CT of cervical spine, x-ray of right knee, chest x-ray, and echocardiogram. The patient's CT of the brain and maxillofacial CT was unremarkable. The patient's CT of her cervical spine revealed a minimal-grade spondylolisthesis of C3 on C4 and C4 on C5 and degenerative disk disease at C6 and C7. The patient's right knee x-ray revealed degenerative changes. The patent's chest x-ray revealed pulmonary congestion and interstitial edema. The patient's echocardiogram revealed an ejection fraction of 60% to 65%, left ventricle wall thickness moderately increased, mild and moderately dilated right and left atrium, mitral valve regurgitation, aortic reny replacement, [id number] tricuspid regurgitation. During this admission, she also was monitored for alcohol withdrawal and she was on a WAM protocol. The patient did require Ativan occasionally, but has not in the past 48 hours. During this hospitalization, the patient also complained of difficulty sleeping due to restless leg syndrome and reports that is why she was drinking in order to deal with her restless leg syndrome and sleep at night. Two medications were trialed including gabapentin and Ativan. Gabapentin did not give the patient much relief and the patient's daughter was concerned this medication might be making her confused. The patient found relief with Ativan, but unfortunately this made the patient too somnolent and there was concern for the somnolence, decreased mentation and age given this medication of benzodiazepine. Because of these concerns, I spoke with the daughter and we have decided to try the patient on Requip which was started last night on 01/31/19 and she reports she did sleep last night. During this hospitalization, the patient was also evaluated by Physical Therapy, who found the patient would very much benefit from subacute rehab. The patient's family had agreed to this. The patient is stable for discharge home to [facility]. REVIEW OF SYSTEMS: A 14-point review of systems was completed and all were negative. PHYSICAL EXAMINATION: Vital Signs: Temp 98.1, HR 75, RR 22, O2 saturation 97% on 2 L, BP 136/58. General: Mrs. Holland is an 88-year-old female. She is lying in bed. Appears to be in no acute distress. Appears stated age. She is not somnolent. She is easily awakened. She engages well in the review of systems and physical exam. HEENT: EOMs intact. PERRLA. Oral mucosa is moist without lesions. Posterior pharynx is clear. Neck: Supple. No lymphadenopathy. Respiratory: Lungs are clear to auscultation. No wheezes, rhonchi, or rubs. Good aeration. Cardiac: S1, S2 present. No murmurs, rubs, or gallops. Regular rate and rhythm. Abdomen: Soft, nontender. Bowel sounds normoactive throughout. Extremities: No edema. No clubbing or cyanosis. Pedal pulses 2+ bilaterally. Musculoskeletal: No pain or deformities. Skin: Grossly intact. Neuro: No focal deficits or weakness. Strength is 5/5 throughout. DIAGNOSTIC STUDIES/LABORATORY DATA: WBC 4.0, hemoglobin 8.8, hematocrit 28, platelets 106. Sodium 139, potassium 3.8, chloride 99, carbon dioxide 37, BUN 15, creatinine 0.54, glucose 126, magnesium 2.2. Imaging Studies: Please see HPI. DISCHARGE MEDICATIONS: New home medications: 1. Thiamine 100 mg p.o. daily. 2. Requip 0.25 mg p.o. at bedtime 3. Multivitamin 1 tablet p.o. daily. 4. Melatonin 3 mg p.o. bedtime p.r.n. 5. Gabapentin 100 mg p.o. bedtime p.r.n. 6. Folic acid 1 mg p.o. daily. 7. Ferrous sulfate 325 mg p.o. t.i.d. 8. Colace 100 mg p.o. b.i.d. p.r.n. Continued home medications: 1. M-Jxsyip-D12-B6 tablet one tablet p.o. daily. 2. Vitamin D 2000 units p.o. daily. 3. Aspirin 81 mg p.o. daily. 4. DuoNeb 1 inhalation q.6 hours p.r.n. 5. Flonase 2 sprays both nares daily p.r.n. 6. Lexapro 10 mg p.o. daily. 7. Avapro 37.5 mg p.o. daily. 8. Metoprolol succinate 12.5 mg p.o. every other day. 9. Magnesium oxide 133 mg p.o. b.i.d. 10. Nitroglycerin 0.4 mg sublingual q.5 minutes p.r.n. 11. Torsemide 10 mg p.o. on Sundays and . DISCONTINUED HOME MEDICATIONS: No home medications discontinued. DISCHARGE PLANS/FOLLOWUP: 1. Frequent falls: The patient was initially admitted for increased fatigue and frequent falls, which we suspect are secondary to the patient's restless leg syndrome, poor sleep habits, and ETOH abuse. Given the patient's frequent falls, the patient would be discharged to a subacute rehab facility for physical therapy and occupational therapy. We would recommend the patient refrain from alcohol use as this will increase her falls and fatigue. We would also recommend the patient refrain from use of any medications that might be sedating including benzodiazepines as we did see this as very sedating for the patient. 2. Alcohol abuse: As mentioned, the patient admits to alcohol abuse to deal with her restless leg. I would encourage the patient to refrain from alcohol, seek outpatient therapy and support groups. 3. Thrombocytopenia: During the patient's admission, she was noted to have mild thrombocytopenia with platelets of 140 to 106 during her admission. In reviewing her previous labs, this is patient's baseline. We suspect this is secondary to the patient's alcohol abuse. I would monitor her platelets routinely. I may refer to Hematology as patient's daughter already has an appointment scheduled for her. 4. Restless leg syndrome: As mentioned in the HPI, the patient was trialed on gabapentin and Ativan both of which were not continued given side effects. I have started the patient on Requip 0.25 as of 01/31/19. The patient's daughter reports that this has helped her in the past. I would recommend continue this medication and increasing it to 0.5 in the next few days. In addition, the patient was found to have iron deficiency and normocytic anemia. Iron deficiency can increase the patient's restless leg, therefore, I have ordered iron supplementation, which I would recommend that she continue as an outpatient. We have also ordered a stool guaiac to ensure the patient is not bleeding. If this is not obtained prior to her discharge, I would recommend this be obtained as an outpatient. She also has an appointment with GI on Wednesday for further evaluation and I would recommend she keep this appointment. 5. Coronary artery disease: The patient has a history of myocardial infarction in the past. She did have a mildly elevated troponin on admission, which was suspected to be due to demand ischemia and hypoperfusion in the setting of intoxication. I would continue the patient's aspirin, beta arnulfo, and torsemide. 6. Aortic stenosis: As mentioned in her echo, she has a [id number] aortic stenosis, status post TAVR. 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 7. Chronic obstructive pulmonary disease: The patient has a history of COPD and wears 2 L nasal cannula at night. I would continue this including in addition to the patient's home inhalers. The patient has also required some supplemental oxygen during the day here at the hospital, which I suspect was secondary to her somnolence and from some of the medications. I would continue 2 L of nasal cannula during the day and wean her as she tolerates. 8. Hypertension: I would continue the patient's metoprolol and losartan. 9. Toe fracture, left: The patient did complain of toe pain during physical therapy. We reviewed previous imaging, which revealed a fracture with no intervention. We repeated imaging on 01/27/19, which showed no changes. I would be mindful of this left toe fracture during physical therapy and accommodate as needed. 10. Depression: I would continue the patient's Lexapro. 11. Diabetes: The patient is not currently on any medications at home. She has been on a sliding-scale and having fingersticks routinely here in the hospital. The patent had a hemoglobin A1c on 10/26/18, which was 6.5. I will not start the patient on any medication at this time given the acute setting, but I would defer this to her primary care provider and whether or not to start her on an oral diabetic medication. 12. Congestive heart failure: The patient has a history of CHF. I would continue on torsemide as previously prescribed 10 mg on Wednesday and . She does not appear to be in acute exacerbation, but I would monitor routinely. 13. Followup: As mentioned above, I would follow up the patient's labs to monitor her platelets and her H and H. I would also get a stool for guaiac x3 as even if one is completed here in the hospital, just one stool guaiac is not reliable. I would have the patient follow up with her primary care within a week or two of discharge. I also recommend that the patient seek outpatient therapy for her alcohol abuse, neurology evaluation for RLS, hematology for anemia, and GI as already scheduled. 14. Education: The patient is educated on new or worsening symptoms and when to return to the emergency department. Patient stated understanding. TIME SPENT: Approximately 40 minutes were spent on this discharge, greater than half of the time was spent [id number] with the patient discussing discharge plans and instructions and discussing the same with her daughter. Plan: This plan was discussed with my attending, Dr. Ramey, who is in agreement with my plan of care. This is a summarized report of a complex medical history and hospital stay. For further details, please see the entire medical record. ALISHA MENENDEZ, JAIRO [id number]/[facility] #: [id number]/[facility] #: [id number] [facility]
[2019-02-01 12:45] VITALS: BP 126/52
== END 2019-02-01 14:00 | DRG 57 ==
LOC: ED 09:17 → MED 20:01 → OBSVTOIN 01-26 14:00
PROVIDERS: ADMIT Internal Medicine; ATTEND Internal Medicine
DX: G25.81 Restless legs syndrome (principal); E87.2 Acidosis; I50.32 Chronic diastolic (congestive) heart failure; F10.129 Alcohol abuse with intoxication, unspecified; Y90.3 Blood alcohol level of 60-79 mg/100 ml; E11.9 Type 2 diabetes mellitus without complications; I25.10 Atherosclerotic heart disease of native coronary artery without angina pectoris; S01.412A Laceration without foreign body of left cheek and temporomandibular area, initial encounter; S01.511A Laceration without foreign body of lip, initial encounter; I45.10 Unspecified right bundle-branch block; D69.6 Thrombocytopenia, unspecified; R74.8 Abnormal levels of other serum enzymes; E78.5 Hyperlipidemia, unspecified; J44.9 Chronic obstructive pulmonary disease, unspecified; F32.9 Major depressive disorder, single episode, unspecified; R29.6 Repeated falls; S92.912A Unspecified fracture of left toe(s), initial encounter for closed fracture; D50.9 Iron deficiency anemia, unspecified; I48.91 Unspecified atrial fibrillation; G47.33 Obstructive sleep apnea (adult) (pediatric); I11.0 Hypertensive heart disease with heart failure; W01.10XA Fall on same level from slipping, tripping and stumbling with subsequent striking against unspecified object, initial encounter; M43.12 Spondylolisthesis, cervical region; M47.812 Spondylosis without myelopathy or radiculopathy, cervical region; I08.1 Rheumatic disorders of both mitral and tricuspid valves; R40.0 Somnolence; T42.4X5A Adverse effect of benzodiazepines, initial encounter; Y92.239 Unspecified place in hospital as the place of occurrence of the external cause; I25.2 Old myocardial infarction; Z88.8 Allergy status to other drugs, medicaments and biological substances; Z88.1 Allergy status to other antibiotic agents; Z91.041 Radiographic dye allergy status; Z82.61 Family history of arthritis; Z95.5 Presence of coronary angioplasty implant and graft; Z98.42 Cataract extraction status, left eye; Z98.41 Cataract extraction status, right eye; Z87.891 Personal history of nicotine dependence; Z72.89 Other problems related to lifestyle; Z91.81 History of falling; Y92.002 Bathroom of unspecified non-institutional (private) residence as the place of occurrence of the external cause; Z95.2 Presence of prosthetic heart valve; Z79.82 Long term (current) use of aspirin; Z83.3 Family history of diabetes mellitus
CPT/HCPCS: 36415; 36600; 70450; 70486; 71045; 71046; 72125; 80048; 80053; 80320; 81003; 82140; 82607; 82728; 82746; 82803; 83540; 83550; 83605; 83735; 84425; 84484; 85025; 85610; 85730; 93005; 93306; 99285; A9270-GY; G0378; G0480; G8978-GP-CK; G8979-GP-CI; G8987-GO-CK; G8988-GO-CI; J1650; J3411; J3475

== ENCOUNTER 2019-03-24 18:25 | Emergency (ER) | payer MEDICARE ==
--- OUTSIDE RECORDS SUMMARY | 2019-03-24 18:30 | XMS REPORT | Continuity of Care Document ---
:1930 External Reference #:[id number] Author Name Tracy Lemons MD Address [address] [place] [address] Care Team Providers Name Role Phone Amanda Bah M.D. Care Team Information Sensitometrist Unavailable Kalyn Rudolph M.D. Primary Care Physician Unavailable Payers Date Identification Numbers Payment Provider Subscriber Policy Number: [id number] Medicare Guerda Medellin PayID: [id number] [facility] [address] [place] [address] Policy Number: [id number] [facility] Care Option Guerda Medellin PayID: [id number] Claims, [address] [place] [address] Social History Type Date Description Comments Sex Unknown Tobacco Use Start: Unknown End: Unknown Patient is a former smoker Smoking Status Reviewed: 03/10/19 Patient is a former smoker Allergies, Adverse Reactions, Alerts Active Allergies Reaction Severity Comments Date Diltiazem Free Text Mild 01/10/2019 Iodine Free Text, Hives Moderate 01/10/2019 Simvastatin 01/10/2019 Sulfamethoxazole / Trimethoprim 01/10/2019 Benzonatate Free Text, Free Text Severe 01/10/2019 Medications Active Medications SIG Qnty Indications Ordering Date Provider Omeprazole take 1 capsule 30caps Tracy 03/10/2019 20mg Capsules by mouth daily. MD LYUBOV Lemons take 30-60 minutes before a meal. Nitroglycerin Place One 25tabs Kalyn Rudolph 10/18/2018 0.4mg Tablet Under M.D. Tablets Sub The Tongue as Needed For Chest Pain, May Repeat Every 5 Minutes For Up To 3 Total Doses Duoneb 1 unit nebl 540units J01.90 Anais MalloryMaylin 11/05/2017 0.5-2.5(3)mg/3ML every 6 hours D Solution as needed. Office visits 10/19/17 and 12/13/17. Metoprolol Succinate 1/2 by mouth 45tabs Anant Lopez, 02/04/2017 ER every other 25mg Tablets ER 24HR day Torsemide 1 tab 2x week. 30tabs I50.22 Dereck, 12/08/2016 10mg Tablets Akash Lewis MD prn Escitalopram Oxalate take 1 tablet 30tabs Amanda Bah, 07/24/2016 10mg by mouth every M.D. Tablets day Aspirin 1 po qd Unknown 81mg Chewtabs Fluticasone Propionate 2 sprays each 16units Olvin Amanda, nostril once M.D. 50mcg/Act Suspension daily as needed Ropinirole HCL bid Unknown 0.25mg Tablets History Medications Irbesartan 1/2 tab every 90tabs Joshua Harden, 11/10/2018 - 75mg Tablets day 03/10/2019 Omeprazole 1 po qd 30caps Keyla Coelho, 01/07/2012 - 20mg ANATOMY TEACHER-C 02/06/[address] Meredith 200 Unknown - 434.8(200Fe) 03/10/2019 mg Capsules Gabapentin Daily Unknown - 100mg 03/10/2019 Capsules Immunizations CPT Code Status Date Vaccine Lot # 45535 Given 06/17/2018 Influenza Vaccine [place] [address] Given 07/14/2017 Influenza Virus Vaccine, Quadrivalent, Split, Preservative Free 48504 Given 10/04/2015 Pneumococcal Conjugate Vaccine 13 Valent For Intramuscular Use 64977 Given 07/02/2015 Influenza Virus [place], [place] [address] Given 07/13/2014 Influenza Virus Vaccine Split Virus Use For Individual 3Yr Older 58495 Given 06/25/2013 Influenza Virus Vacc[place], [place] [address] Given 07/21/2012 Influenza Virus Vacc[place], [place] [address] Given 07/13/2011 Influenza Virus [place], [place] [address] Given 09/06/2009 Influenza Virus Vaccine, [place] [address] Given 09/06/2008 Pneumovax Vital Signs Date Vital Result Comment 03/10/2019 3:51pm Height 56 inches 4'8" Weight 150.00 lb BMI (Body Mass Index) 33.6 kg/m2 02/06/2019 3:39pm Height 56 inches 4'8" Weight 150.00 lb BMI (Body Mass Index) 33.6 kg/m2 Results Test Date Facility Test Result H/L Range Note Laboratory test 2019 [facility] Helico Pylori Negative Negative 1, 2 finding Antigen- Stool Laboratory test 01/26/2019 [facility] Troponin I <pending> finding Xray 01/25/2019 [facility] Radiology Chest PA & Lat <pending> 2 VWS CBC W/Auto 01/25/2019 [facility] White Blood <pending> Differential(!) Count Ser Auto CNT RBC Red Blood Count <pending> Hemoglobin Blood <pending> Hematocrit <pending> MCV (Corpuscular Volume) <pending> MCH (Corpuscular Hemoglobin) <pending> MCHC (Corpuscular Hemog Conc) <pending> RDW <pending> Platelet Count Blood Auto CNT <pending> MPV <pending> Lymph% <pending> [place]% <pending> Neutrophil % <pending> Absolute Lymphocytes <pending> Absolute Monocytes <pending> Absolute Neutrophils <pending> CMP, Magnesium, 01/25/2019 [facility] Magnesium Ser/Plasma <pending> Phosphorus Mass/Vol Phosphorus <pending> CMP(!) 01/25/2019 [facility] Sodium(!) <pending> Potassium(!) <pending> Chloride Serum/Plasma(!) <pending> Carbon Dioxide Ser/Plasm(!) <pending> BUN - Urea Nitrogen(!) <pending> Calcium Ser/Plasma Mass/Vol(!) <pending> Creatinine Serum Mass/Vol(!) <pending> Glucose Serum(!) <pending> BUN/Creatinine Ratio(!) <pending> Albumin Serum/Plasma(!) <pending> Alkaline Phosphatase(!) <pending> Bilirubin Total Mass/Vol(!) <pending> Ast - Sgot <pending> Alt - SGPT <pending> Protein Total <pending> Laboratory test 01/25/2019 [facility] Troponin I <pending> finding Laboratory test 01/25/2019 [facility] Lactic Acid <pending> finding Ser/Plas Mass/Vol Laboratory test 01/25/2019 [facility] Troponin I <pending> finding Laboratory test 01/25/2019 [facility] Lactic Acid <pending> finding Ser/Plas Mass/Vol Laboratory test 01/25/2019 [facility] Inr(!) <pending> finding Lab Results 11/03/2018 N2N/CCD Import Sodium 141 mmol/L 135-145 Potassium 3.8 mmol/L 3.5-5 Chloride 103 mmol/L 101-111 Co2 Carbon Dioxide 30 mmol/L 22-32 Anion Gap 8 mmol/L 2-11 Glucose 180 mg/dL High 70-100 Blood Urea Nitrogen 18 mg/dL 6-24 Creatinine 0.53 mg/dL 0.51-0.95 BUN/Creatinine Ratio 34.0 1 High 8-20 Calcium 9.2 mg/dL 8.6-10.3 Total Protein 5.9 g/dL Low 6.4-8.9 Albumin 3.7 g/dL 3.2-5.2 Globulin 2.2 g/dL 2-4 Albumin/Globulin Ratio 1.7 1 1-3 Total Bilirubin 0.30 mg/dL 0.2-1 Alkaline Phosphatase 72 U/L 34-104 Alt 41 U/L 7-52 Ast 37 U/L 13-39 Egfr Non- 108.9 1 Egfr 131.7 1 3 CBC Auto Diff 11/03/2018 N2N/CCD Import White Blood Count 3.2 10^3/uL Low 3.5-10.8 Red Blood Count 3.44 10^6/uL Low 4-5.4 Hemoglobin 9.9 g/dL Low 12-16 Hematocrit 32 % Low 35-47 Mean Corpuscular Volume 93 fL 80-97 Mean Corpuscular Hemoglobin 29 pg 27-31 Mean Corpuscular HGB Conc 31 g/dL 31-36 Red Cell Distribution Width 18 % High 10.5-15 Platelet Count 115 10^3/uL Low 150-450 Mean Platelet Volume 8.6 fL 7.4-10.4 Abs Neutrophils 1.8 10^3/uL 1.5-7.7 Abs Lymphocytes 0.9 10^3/uL Low 1-4.8 Abs Monocytes 0.3 10^3/uL 0-0.8 Abs Eosinophils 0.1 10^3/uL 0-0.6 Abs Basophils 0 10^3/uL 0-0.2 Abs Nucleated RBC 0 10^3/uL Granulocyte % 57.0 % Lymphocyte % 27.9 % Monocyte % 9.8 % Eosinophil % 4.1 % Basophil % 1.2 % Nucleated Red Blood Cells % 0 1 Lab Results 11/03/2018 N2N/CCD Import B-Type Natriuretic Peptide 208 pg/mL High BNP Magnesium 2.0 mg/dL 1.9-2.7 Iron & Iron Binding Capacity 11/03/2018 N2N/CCD Import Iron 39 g/dL Low 50-212 Unsaturated Iron Binding < 475 ug/dL Total Iron Binding Capacity 490 g/dL High 250-450 Transferrin 350 mg/dL 203-362 % Iron Saturation 8 % Low 15-55 Lab Results 11/03/2018 N2N/CCD Import Hemoglobin A1c (Glyco 6.5 % High 4- 5.6 4 HGB) Lab Results 09/13/2018 N2N/CCD Import Hemoglobin A1c 6.3 1 5-7 Lab Results 02/18/2018 N2N/CCD Import Sodium 136 mmol/L 135-145 Potassium 3.8 mmol/L 3.5-5 Chloride 99 mmol/L Low 101-111 Co2 Carbon Dioxide 31 mmol/L 22-32 Anion Gap 6 mmol/L 2-11 Glucose 247 mg/dL High 70-100 Blood Urea Nitrogen 19 mg/dL 6-24 Creatinine 0.60 mg/dL 0.51-0.95 BUN/Creatinine Ratio 31.7 1 High 8-20 Calcium 9.2 mg/dL 8.6-10.3 Total Protein 6.0 g/dL Low 6.4-8.9 Albumin 3.8 g/dL 3.2-5.2 Globulin 2.2 g/dL 2-4 Albumin/Globulin Ratio 1.7 1 1-3 Total Bilirubin 0.50 mg/dL 0.2-1 Alkaline Phosphatase 66 U/L 34-104 Alt 24 U/L 7-52 Ast 26 U/L 13-39 Egfr Non- 94.6 1 Egfr 121.6 1 5 CBC Auto Diff 02/18/2018 N2N/CCD Import White Blood Count 3.7 10^3/uL 3.5-10.8 Red Blood Count 3.29 10^6/uL Low 4-5.4 Hemoglobin 11.0 g/dL Low 12-16 Hematocrit 33 % Low 35-47 Mean Corpuscular Volume 101 fL High 80-97 Mean Corpuscular Hemoglobin 33 pg High 27-31 Mean Corpuscular HGB Conc 33 g/dL 31-36 Red Cell Distribution Width 17 % High 10.5-15 Platelet Count 105 10^3/uL Low 150-450 Mean Platelet Volume 8.3 um3 7.4-10.4 Abs Neutrophils 2.6 10^3/uL 1.5-7.7 Abs Lymphocytes 0.8 10^3/uL Low 1-4.8 Abs Monocytes 0.2 10^3/uL 0-0.8 Abs Eosinophils 0.1 10^3/uL 0-0.6 Abs Basophils 0 10^3/uL 0-0.2 Abs Nucleated RBC 0 10^3/uL Granulocyte % 69.6 % 38-83 Lymphocyte % 20.5 % Low 25-47 Monocyte % 6.5 % 0-7 Eosinophil % 2.4 % 0-6 Basophil % 1.0 % 0-2 Nucleated Red Blood Cells % 0.1 1 Urine Culture And 02/18/2018 N2N/CCD Import Urine Culture See Result 6 Sensitivities Below Lab Results 02/18/2018 N2N/CCD Import LDH 275 U/L High 140-27 1 Protein 02/18/2018 N2N/CCD Import Total 6.5 g/dL 6.3-7. Electrophoresis Protein(Pep) 9 Albumin 3.3 g/dL Abnormal 3.4-4.7 Alpha-1 Globulin 0.4 g/dL Abnormal 0.1-0.3 Alpha-2 Globulin 0.8 g/dL 0.6-1 Beta Globulin 1.1 g/dL 0.7-1.2 Gamma Globulin 1.1 g/dL 0.6-1.6 Albumin/Globulin Ratio 1.00 1 Impression See Comment 7 Lab Results 02/18/2018 N2N/CCD Import Erythrocyte Sed Rate 23 mm/Hr 0- 40 C Reactive Protein 2.97 mg/L 8 Urinalysis Profile 02/18/2018 N2N/CCD Import Urine Color Yellow Urine Appearance Cloudy Urine Specific [place] 1.021 1 1.01-1.03 Urine pH 5.0 1 5-9 Urine Urobilinogen Negative Urine Ketones Trace Abnormal Urine Protein Negative Urine Leukocytes Trace Abnormal Urine Blood Negative Urine Nitrite Negative Urine Bilirubin Negative Urine Glucose 1+(50 mg/dL) Abnormal Urine White Blood Cell Trace(0-5/hpf) Urine Red Blood Cell Trace(0-2/hpf) Urine Bacteria 1+ Abnormal Urine Squamous Epithelial Cell Present Abnormal Lab Results 02/18/2018 N2N/CCD Import Lipase 31 U/L 11-82 CBC Auto Diff 11/11/2011 [facility] White Blood Count 6.7 CUMM 4.8-10.8 Red Cell Count 3.85 CUMM Low 4.2-5.4 Hemoglobin 9.7 g/dL Low 12.0-16.0 Hematocrit 30 % Low 35-47 Mean Corpuscular Volume 77 um3 Low 79-97 Mean Corpuscular Hemoglob 25 pg Low 27-31 Mean Corpuscular HGB Cone 33 g/dL 32-36 Redcell Distribution WDTH 24 % High 10.5-15 Platelet Count 201 CUMM 150-450 Mean Platelet Volume 11.7 um3 High 7.4-10.4 9 Manual Differential 11/11/2011 [facility] Polysegmented Neutrophil 63 % 38-83 Lymphocyte 31 % 25-47 Monocyte 2 % 0-13 Eosinophil 3 % 0-6 Basophil 1 % 0-2 Absolute Neutrophil Count 4.2 Anisocytosis 1+ Poikilocytosis 1+ Hypochromasia SLIGHT Polychromasia SLIGHT Ovalocytes 1+ Elliptocyte 1+ Comp Metabolic Panel 11/11/2011 [facility] Sodium 140 mmol/L 135-145 Potassium 4.6 mmol/L 3.5-5.0 Chloride 100 mmol/L Low 101-111 Co2 (Carbon Dioxide) 32.0 mmol/L 22-32 Anion Gap 8.0 mmol/L 2-11 10 Glucose 85 mg/dL 70-100 BUN 18 mg/dL 6-24 Creatinine 0.5 mg/dL Low 0.50-1.40 One Over Creatinine 2.00 BUN/Creatinine Ratio 36.0 High 8-20 Calcium 9.2 mg/dL 8.1-9.9 Total Protein 6.2 GM/DL 6.2-8.1 Albumin 4.2 GM/DL 3.2-5.2 Globulin 2.0 GM/DL 2-4 Albumin/Globulin Ratio 2.1 1-3 Bilirubin Total 0.4 mg/dL 0.4-1.5 11 Alkaline Phosphatase 57 U/L 30-110 Alt (SGPT) 42 U/L 14-54 Ast (Sgot) 35 U/L 12-42 eGFR Non- 118.4 > 60 eGFR 152.3 > 60 12 Laboratory test 11/11/2011 [facility] Cholesterol 156 mg/dL Less Than 200 13 finding HDL Cholesterol 11/11/2011 [facility] High Density 45 mg/dL 40-60 14 Lipoprotein Cholesterol/HDL Ratio 3.47 AVERAGE 1-4.44 Laboratory test finding 11/11/2011 [facility] LDL Direct 83 mg/dL Less Than 100 15 Iron & Iron Binding Capacity 11/11/2011 [facility] Iron Total 27 g/dL Low 28- 170 Unsaturated Iron Binding 471 g/dL Total Iron Binding Capacity 498 g/dL High 250-450 % Iron Saturation 5 % Low 15-55 1 REQ#[id number] [facility] CLIENT: D24 2 Test Performed by: [address] [address] 3 Because ethnic data is not always readily available, this report includes an eGFR for both -Americans and non- Americans. The National Kidney Disease Education Program (NKDEP) does not endorse the use of the MDRD equation for patients that are not between the ages of 18 and 70, are , have extremes of body size, muscle mass, or nutritional status, or are non- or non-. According to the National Kidney Foundation, irrespective of diagnosis, the stage of the disease is based on the level of kidney function: Stage Description GFR(mL/min/1.73 m(2)) 1 Kidney damage with normal or decreased GFR 90 2 Kidney damage with mild decrease in GFR 60-89 3 Moderate decrease in GFR 30-59 4 Severe decrease in GFR 15-29 5 Kidney failure <15 (or dialysis) 4 Therapeutic target for the treatment of diabetes mellitus patients is <7% HBA1C, and in selective patients <6.0%. Please refer to [place] [employer] Association diabetic care guidelines for further information. 5 Because ethnic data is not always readily available, this report includes an eGFR for both -Americans and non- Americans. The National Kidney Disease Education Program (NKDEP) does not endorse the use of the MDRD equation for patients that are not between the ages of 18 and 70, are , have extremes of body size, muscle mass, or nutritional status, or are non- or non-. According to the National Kidney Foundation, irrespective of diagnosis, the stage of the disease is based on the level of kidney function: Stage Description GFR(mL/min/1.73 m(2)) 1 Kidney damage with normal or decreased GFR 90 2 Kidney damage with mild decrease in GFR 60-89 3 Moderate decrease in GFR 30-59 4 Severe decrease in GFR 15-29 5 Kidney failure <15 (or dialysis) 6 SEE RESULT BELOW Name: MAGDALENARAOGUERDA : [address]: Nehemias Mckeon NP Acct: [id number] Unit: [id number] AGE: 88 Location: LAB Re02/18/18 SEX: F Status: REG REF SPEC: [id number] CHAMP: 02/18/18-[address] [facility] [address]: Nehemias Mckeon CLAIM CLINICIAN REQ: [id number] RECD: 02/18/18 STATUS: BRITTNY DIXON DR: Anant Harden MD _ SOURCE: URINE SPDESC: ORDERED: Urine Culture Procedure Result Reported Site Urine Culture Final 02/22/18- 0857 ML Organism 1 STAPHYLOCOCCUS LUGDENENSIS [place] Count 10-25,000 (Moderate) CFU/ML 1. STAPHYLOCOCCUS LUGDENENSIS [facility]. RX --------- ------ Penicillin <=0.03 S Gentamicin <=0.5 S Linezolid 2 S Nitrofurantoin <=16 S Oxacillin 0.5 S * Quinupristin/Dalfopristin <=0.25 S Rifampin <=0.5 S Tetracycline <=1 S Doxycycline - Deduced S * Minocycline - Deduced S Tigecycline <=0.12 S Vancomycin <=0.5 S Imipenem-Deduced S * Ampicillin/Sulbactam-Deduced S Cefazolin-Deduced S CONTINUED ON NEXT PAGE DEPARTMENT OF PATHOLOGY, [address] [place] [address] Pete Best M.D. Director MAYLIN # [id number] Patient: GUERDA MEDELLIN [id number] (Continued) Specimen: [id number] Collected: 02/18/18 Received: 02/18/18 (Continued) Procedure Result Reported Site Urine Culture Final (continued) * These antibiotics are not available in the [facility] Formulary Contact the Microbiology Department for any additional antibiotic reporting. * ML - [facility] . END OF REPORT DEPARTMENT OF PATHOLOGY, [address] [place] [address] Pete Best M.D. Director [facility] # [id number] RESULT: No apparent monoclonal protein on serum electrophoresis. Test Performed by: [facility] [address] [address] 8 Acute inflammation: >10.00 9 Anemia 3+ Anisocytosis 10 Anion gap measurement may be of limited value in the presence of any alkalosis, especially in a combined acid base disorder. . 11 A metabolite of Naproxen, O-desmethylnaproxen, has been shown to interfere with the Jendrassik-Vista method for measuring total bilirubin. Samples from patients who have taken Naproxen have shown spurious elevation in total bilirubin levels. 12 Because ethnic data is not always readily available, this report includes an eGFR for both -Americans and non- Americans. The National Kidney Disease Education Program (NKDEP) does not endorse the use of the MDRD equation for patients that are not between the ages of 18 and 70, are , have extremes of body size, muscle mass, or nutritional status, or are non- or non-. According to the National Kidney Foundation, irrespective of diagnosis, the stage of the disease is based on the level of kidney function: Stage Description GFR(mL/min/1.73 m(2)) 1 Kidney damage with normal or decreased GFR 90 2 Kidney damage with mild decrease in GFR 60-89 3 Moderate decrease in GFR 30-59 4 Severe decrease in GFR 15-29 5 Kidney failure <15 (or dialysis) 13 CHOLESTEROL INTERPRETATION: Desirable: Less than 200 MG/DL Borderline-High Risk: 200-239 MG/DL High-Risk: 240 MG/DL and over 14 HDL INTERPRETATION: Undesirable: High Risk: Less than 40 MG/DL Desirable: Low Risk: Greater than 60 MG/DL 15 LDL INTERPRETATION: Low Risk Optimal Level: LDL Less than 100 MG/DL Near or Above Optimal: LDL 100-129 MG/DL Borderline High Risk: LDL 130-159 MG/DL High Risk: LDL 160-189 MG/DL Very High Risk: LDL Greater than 189 MG/DL Procedures Date Code Description Status 09/09/2011 65567 Colon.W/Ablation Of Tumor/Polyp/Lesion Not Hot Biopsy Completed [facility] 09/09/2011 81258 Colonscopy+Biopsy Completed 09/09/2011 44518 EGD+Biopsy Single Or Multiple Completed Encounters Type Date Location Provider Dx Diagnosis Office Visit 11/17/2011 [facility] Lynne 531.90 Gastric Ulcer 9:00a [facility] MD Unspec Acute Chronic W/O Hemo Or Perf W/O Obst 578.9 Hemorrhage Gastrointestinal Tract Unspec Office Visit 10/20/2011 [facility] Rodney Lynne 531.90 Gastric Ulcer 10:45a [facility] MD Unspec Acute Chronic W/O Hemo Or Perf W/O Obst Office Visit 09/18/2011 [facility] 531.90 Gastric Ulcer 2:30p [facility] MD Unspec Acute Chronic W/O Hemo Or Perf W/O Obst Office Visit 08/25/2011 [facility]enter[facility] Rodney Lynne 280.9 Iron Deficiency 1:15p [facility] MD Anemia Unspec Office Visit 04/22/2011 [facility] Reginaldo Tejada 280.9 Iron Deficiency 1:00p [facility] MD Anemia Unspec 578.1 Blood In Stool Office Visit 04/03/2011 9:15a [facility] Reginaldo Tejada 285.9 [facility]emia [facility] MD Unspec 578.1 Blood In Stool Plan of Treatment 03/10/2019 - Tracy Lemons, MDD50.9 Iron deficiency anemia, unspecifiedNew Labs:CBC W/Auto Differential(!), Ordered: 03/10/19
--- OUTSIDE RECORDS SUMMARY | 2019-03-24 18:32 | XMS REPORT | Continuity of Care Document ---
:1930 External Reference #:[id number] Author Name Tracy Lemons MD Address [address] [place] [address] Care Team Providers Name Role Phone Amanda Bah M.D. 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 Primary Care Physician Unavailable Payers Date Identification Numbers Payment Provider Subscriber Policy Number: [id number] Medicare Guerda Medellin PayID: [id number] [facility] [address] [place] [address] Policy Number: [id number] [facility] Care Option Guerda Medellin PayID: [id number] Claims, [address] [place] [address] Social History Type Date Description Comments Sex Unknown Tobacco Use Start: Unknown End: Unknown Patient is a former smoker Smoking Status Reviewed: 02/06/19 Patient is a former smoker Allergies, Adverse Reactions, Alerts Active Allergies Reaction Severity Comments Date Diltiazem Free Text Mild 01/10/2019 Iodine Free Text, Hives Moderate 01/10/2019 Simvastatin 01/10/2019 Sulfamethoxazole / Trimethoprim 01/10/2019 Benzonatate Free Text, Free Text Severe 01/10/2019 Medications Active Medications SIG Qnty Indications Ordering Date Provider Irbesartan 1/2 tab every 90tabs Dereck 11/10/2018 75mg Tablets keri Lewis MD Nitroglycerin Place One 25tabs Kalyn Rudolph 10/18/2018 0.4mg Tablet Under M.D. Tablets Sub The Tongue as Needed For Chest Pain, May Repeat Every 5 Minutes For Up To 3 Total Doses Duoneb 1 unit nebl 540units J01.90 Mohamud,Anais,M 11/05/2017 0.5-2.5(3)mg/3ML every 6 hours D Solution as needed. Office visits 10/19/17 and 12/13/17. Metoprolol Succinate 1/2 by mouth 45tabs Anant Lopez, 02/04/2017 ER every other MD 25mg Tablets ER 24HR day Torsemide 1 tab 2x week. 30tabs I50.22 Dereck, 12/08/2016 10mg Tablets Akash Lewis MD Escitalopram Oxalate take 1 tablet 30tabs Olvin Amanda, 07/24/2016 10mg by mouth every M.D. Tablets day Aspirin 1 po qd Unknown 81mg Chewtabs Fluticasone Propionate 2 sprays each 16units Bah, nostril once M.D. 50mcg/Act Suspension daily as needed Ezfe 200 Unknown 434.8(200Fe) mg Capsules Ropinirole HCL Daily Unknown 0.25mg Tablets Gabapentin Daily Unknown 100mg Capsules History Medications Omeprazole 1 po qd 30caps THELMA Killian 01/07/2012 - 02/06/[address] Alexandra CPT Code Status Date Vaccine Lot # [id number] Given 06/17/2018 Influenza Vaccine Split Virus Preservative [place] [address] Given 07/14/2017 Influenza Virus Vaccine, Quadrivalent, Split, Preservative Free 45236 Given 10/04/2015 Pneumococcal Conjugate Vaccine 13 Valent For Intramuscular Use 14458 Given 07/02/2015 Influenza Virus Vacc[place], [place] [address] Given 07/13/2014 Influenza Virus Vaccine Split Virus Use For Individual 3Yr Older 48197 Given 06/25/2013 Influenza Virus Vacc[place], [place] [address] Given 07/21/2012 Influenza [place], [place] [address] Given 07/13/2011 Influenza [place], [place] [address] Given 09/06/2009 Influenza Virus Vacc[place], [place] [address] Given 09/06/2008 Pneumovax Vital Signs Date Vital Result Comment 02/06/2019 3:39pm Height 56 inches 4'8" Weight 150.00 lb BMI (Body Mass Index) 33.6 kg/m2 Results Test Date Facility Test Result H/L Range Note Laboratory test 2019 [facility] [place] Pylori Negative Negative 1, 2 finding Antigen- Stool Laboratory test 01/26/2019 [facility] Troponin I <pending> finding Xray 01/25/2019 [facility] Chest PA & Lat <pending> 2 VWS CMP, Magnesium, 01/25/2019 [facility] Magnesium <pending> Phosphorus Ser/Plasma Mass/Vol Phosphorus <pending> CMP(!) 01/25/2019 [facility] Sodium(!) <pending> Potassium(!) <pending> Chloride Serum/Plasma(!) <pending> Carbon Dioxide Ser/Plasm(!) <pending> BUN - Urea Nitrogen(!) <pending> Calcium Ser/Plasma Mass/Vol(!) <pending> Creatinine Serum Mass/Vol(!) <pending> Glucose Serum(!) <pending> BUN/Creatinine Ratio(!) <pending> Albumin Serum/Plasma(!) <pending> Alkaline Phosphatase(!) <pending> Bilirubin Total Mass/Vol(!) <pending> Ast - Sgot <pending> Alt - SGPT <pending> Protein Total <pending> CBC W/Auto 01/25/2019 [facility] White Blood <pending> Differential(!) Count Ser Auto CNT RBC Red Blood Count <pending> Hemoglobin Blood <pending> Hematocrit <pending> MCV (Corpuscular Volume) <pending> MCH (Corpuscular Hemoglobin) <pending> MCHC (Corpuscular Hemog Conc) <pending> RDW <pending> Platelet Count Blood Auto CNT <pending> MPV <pending> Lymph% <pending> [place]% <pending> Neutrophil % <pending> Absolute Lymphocytes <pending> Absolute Monocytes <pending> Absolute Neutrophils <pending> Laboratory test 01/25/2019 [facility] Troponin I <pending> finding Laboratory test 01/25/2019 [facility] Lactic Acid <pending> finding Ser/Plas Mass/Vol Laboratory test 01/25/2019 [facility] Troponin I <pending> finding Laboratory test 01/25/2019 [facility] Inr(!) <pending> finding Laboratory test 01/25/2019 [facility] Lactic Acid <pending> finding Ser/Plas Mass/Vol Lab Results 11/03/2018 [facility] Import Sodium 141 [...] Non- 94.6 1 Egfr 121.6 1 5 Urine Culture And 02/18/2018 [facility] Import Urine [...] Impression See Comment 7 Lab Results 02/18/2018 [facility] Import Erythrocyte Sed Rate 23 mm/Hr 0- 40 C Reactive Protein 2.97 mg/L 8 Urinalysis Profile 02/18/2018 [facility] Import Urine Color Yellow Urine Appearance Cloudy Urine Specific [place] 1.021 1 1.01-1.03 Urine pH 5.0 1 5-9 Urine Urobilinogen Negative Urine Ketones Trace Abnormal Urine Protein Negative Urine Leukocytes Trace Abnormal Urine Blood Negative Urine Nitrite Negative Urine Bilirubin Negative Urine Glucose 1+(50 mg/dL) Abnormal Urine White Blood Cell Trace(0-5/hpf) Urine Red Blood Cell Trace(0-2/hpf) Urine Bacteria 1+ Abnormal Urine Squamous Epithelial Cell Present Abnormal Lab Results 02/18/2018 [facility] Import Lipase 31 U/L 11-82 CBC Auto Diff 02/18/2018 [facility] Import White Blood Count 3.7 10^3/uL 3.5-10.8 [...] Nucleated Red Blood Cells % 0.1 1 CBC Auto Diff 11/11/2011 [facility] White Blood Count 6.7 CUMM 4.8-10.8 Red [...] um3 High 7.4-10.4 9 Manual Differential 11/11/2011 [facility] Polysegmented Neutrophil 63 % 38-83 Lymphocyte 31 % 25-47 Monocyte 2 % 0-13 Eosinophil 3 % 0-6 Basophil 1 % 0-2 Absolute Neutrophil Count 4.2 Anisocytosis 1+ Poikilocytosis 1+ Hypochromasia SLIGHT Polychromasia SLIGHT Ovalocytes 1+ Elliptocyte 1+ Comp Metabolic Panel 11/11/2011 [facility] Sodium 140 mmol/L 135-145 Potassium 4.6 mmol/L [...] 152.3 > 60 12 Laboratory test 11/11/2011 [facility] Cholesterol 156 mg/dL Less Than 200 13 finding HDL Cholesterol 11/11/2011 [facility] High Density 45 mg/dL 40-60 14 Lipoprotein Cholesterol/HDL Ratio 3.47 AVERAGE 1-4.44 Laboratory test finding 11/11/2011 [facility] LDL Direct 83 mg/dL Less Than 100 15 Iron & Iron Binding Capacity 11/11/2011 [facility] Iron Total 27 g/dL Low 28- 170 Unsaturated Iron Binding 471 g/dL Total Iron Binding Capacity 498 g/dL High 250-450 % Iron Saturation 5 % Low 15-55 1 REQ#[id number] [facility] CLIENT: D24 2 Test Performed by: [address] [id number] 3 Because ethnic data is not always [...] in selective patients <6.0%. Please refer to [place] [employer] diabetic care guidelines for further [...] (or dialysis) 6 SEE RESULT BELOW Name: GUERDA MEDELLIN : [address]: Nehemias Mckeon NP Acct: [id number] Unit: [id number] AGE: 88 Location: LAB Re02/18/18 SEX: F Status: REG REF SPEC: [id number] CHAMP: 02/18/18-[address] [facility] [address]: Nehemias Mckeon NP REQ: [id number] RECD: 02/18/18 STATUS: BRITTNY DIXON DR: Anant Harden MD _ SOURCE: URINE SPDESC: ORDERED: Urine Culture Procedure Result Reported Site Urine Culture Final 02/22/18- 0857 ML Organism 1 STAPHYLOCOCCUS LUGDENENSIS Ruffin Count 10-25,000 (Moderate) CFU/ML 1. STAPHYLOCOCCUS LUGDENENSIS [...] CONTINUED ON NEXT PAGE DEPARTMENT OF PATHOLOGY, [address] [place] [address] Pete Best M.D. Director [facility] # [id number] Patient: GUERDA MEDELLIN [id number] (Continued) Specimen: [id number] Collected: 02/18/18-1109 Received: 02/18/18 (Continued) Procedure Result Reported Site Urine Culture Final (continued) * These antibiotics are not available in the [facility] Formulary Contact the Microbiology Department for any additional antibiotic reporting. * ML - Main Lab . END OF REPORT DEPARTMENT OF PATHOLOGY, [address] [place] [address] Pete Best M.D. Director [facility] # [id number] RESULT: No apparent monoclonal protein on serum electrophoresis. Test Performed by: [address] [address] 8 Acute inflammation: >10.00 9 Anemia 3+ Anisocytosis 10 Anion gap measurement may be of limited value in the presence of any alkalosis, especially in a combined acid base disorder. . 11 A metabolite of Naproxen, O-desmethylnaproxen, has been shown to interfere with the [facility] method for measuring total bilirubin. Samples from [...] MG/DL Procedures Date Code Description Status 09/09/2011 42157 Colon.W/Ablation Of Tumor/Polyp/Lesion Not Hot Biopsy Completed Force 09/09/2011 97308 Colonscopy+Biopsy Completed 09/09/2011 02776 EGD+Biopsy Single Or Multiple Completed Encounters Type Date Location Provider Dx Diagnosis Office Visit 11/17/2011 [facility] 531.90 Gastric Ulcer 9:00a [facility] Shruthi Monet MD Unspec Acute Chronic W/O Hemo Or Perf W/O Obst 578.9 Hemorrhage Gastrointestinal Tract Unspec Office Visit 10/20/2011 [facility] 531.90 Gastric Ulcer 10:45a [facility] Shruthi Monet MD Unspec Acute Chronic W/O Hemo [...] 578.1 Blood In Stool Plan of Treatment Future Appointment(s):03/10/2019 4:00 pm - Tracy Lemons MD [facility]02/06/2019 - Tracy Lemons, MDD50.9 Iron deficiency anemia, imrsfmalwbrM75.1 SwtfspP70.00 Constipation, rtvcbcnfpmjL58.11 Alcohol abuse, in remissionNew Labs:CBC W/Auto Differential(!) , Ordered: 02/06/19CMP(!), Ordered: 02/06/19Inr(!), Ordered: 02/06/19
[2019-03-24 18:46] VITALS: BP 130/71
--- NOTE | 2019-03-24 19:46 | UC ---
Skin Complaint HPI - HPI Summary HPI Summary: PATIENT ARRIVES ACCOMPANIED BY HER DAUGHTER. SHE HAS SWELLING IN HER ANKLES AND FEET WHICH HER DAUGHTER REPORTS IS CHRONIC. PATIENT STATES THAT OVER THE PAST COUPLE OF WEEKS THEY HAVE BECOME MORE RED AND ITCHY. ABOUT ONE WEEK AGO STATES SHE WENT TO SCRATCH THE BACK OF HER LEFT ANKLE AND THIS RESULTED IN A BREAK IN THE SKIN. THE WOUND IS NOT HEALING. NO FEVER. NO DRAINAGE. PATIENT HAS A HISTORY OF DIABETES THAT SHE REPORTS IS VERY WELL CONTROLLED WITH NO MEDICATIONS. SHE IS ALSO CONCERNED ABOUT PAIN ON THE BOTTOM OF HER LEFT GREAT TOE. A COUPLE OF MONTHS AGO SHE REPORTS SHE SUSTAINED A FRACTURE TO THIS TOE. IS FOLLOWING UP WITH DR. HAYNES WITH ORTHOPEDICS THIS WEEK. - History of Current Complaint Chief Complaint: UCLowerExtremity Time Seen by Provider: 03/24/19 18:36 Stated Complaint: SORE ON LEG Hx Obtained From: Patient Onset/Duration: Gradual Onset, Lasting Days, Still Present Timing: Constant Onset Severity: Moderate Current Severity: Moderate Pain Intensity: 0 Pain Scale Used: 0-10 Numeric Location: Discrete - LEFT POSTERIOR ANKLE Character: Swelling, Pruritus, Redness Aggravating Factor(s): Touch Alleviating Factor(s): Nothing - Allergy/Home Medications Allergies/Adverse Reactions: Allergies Allergy/AdvReac Type Severity Reaction Status Date / Time benzonatate Allergy Altered Verified 03/24/19 18:47 [From Jaime Merida] Mental Status diltiazem Allergy Dizziness Verified 03/24/19 18:47 iodine Allergy Hives Verified 03/24/19 18:47 simvastatin Allergy Hives Verified 03/24/19 18:47 sulfamethoxazole Allergy Swelling Verified 03/24/19 18:47 [From Bactrim] Of Face,Lips,& Throat trimethoprim [From Bactrim] Allergy Swelling Verified 03/24/19 18:47 Of Face,Lips,& Throat Home Medications: Home Medications Ropinirole TAB* [Requip TAB*] 0.25 mg PO BID 03/24/19 [History Confirmed ] PMH/Surg Hx/FS Hx/Imm Hx Endocrine History: Diabetes Cardiovascular History: Cardiac Disease - STENTS, Hypertension, Congestive Heart Failure, Other - AORTIC STENOSIS - VALVE REPLACEMENT Respiratory History: COPD - on home oxygen, Asthma Other History Of: Negative For: Anticoagulant Therapy - Surgical History Surgical History: Yes Surgery Procedure, Year, and Place: appe, ovarian cyst, tubal ligation, gum surgery wtih dental implants, bilat cataracts, cardiac stents. - Family History Known Family History: Positive: Other - Osteoarthritis Negative: Cardiac Disease - Social History Alcohol Use: None Alcohol Amount: 2 drinks a day Substance Use Type: None Smoking Status (MU): Former Smoker Type: Cigarettes Amount Used/How Often: quit 30 y ears ago - Immunization History Most Recent Influenza Vaccination: 2019 Most Recent Pneumonia Vaccination: 2016 Review of Systems All Other Systems Reviewed And Are Negative: Yes Constitutional: Positive: Negative Skin: Positive: Other - ERYTHEMA BOTH ANKLES, SMALL WOUND LEFT ANKLE Respiratory: Positive: Negative Cardiovascular: Positive: Negative Gastrointestinal: Positive: Negative Musculoskeletal: Positive: Edema Physical Exam Triage Information Reviewed: Yes Appearance: Well-Appearing, No Pain Distress, Well-Nourished Vital Signs: Initial Vital Signs Temp 97.8 F 03/24/19 18:38 Pulse 86 03/24/19 18:38 Resp 16 03/24/19 18:38 BP 130/71 03/24/19 18:38 Pulse Ox 94 03/24/19 18:38 Vital Signs Reviewed: Yes Eyes: Positive: Conjunctiva Clear ENT: Positive: Hearing grossly normal Neck: Positive: Supple Respiratory Exam: Normal Cardiovascular: Positive: RRR, Pulses Normal, Murmur:Sys:Grade _?_/ - 3/6 Abdomen Description: Positive: Soft Musculoskeletal: Positive: Edema @ - BILATERAL ANKLES AND FEET Neurological: Positive: Alert Psychological: Positive: Age Appropriate Behavior Skin: Positive: Other - BILATERAL ANKLES ARIAN WITH SKIN THICKENING. LEFT POSTERIOR ANKLE WITH 1.8CM X0.3CM WOUND WITH SURROUNDING ERYTHEMA. NO DRAINAGE. Course/Dx - Diagnoses Provider Diagnosis: Cellulitis of left lower extremity without foot, Stasis dermatitis of both legs , Metatarsalgia of left foot Discharge - Sign-Out/Discharge Documenting (check all that apply): Patient Departure All imaging exams completed and their final reports reviewed: No Studies - Discharge Plan Condition: Stable Disposition: HOME Prescriptions: Cephalexin CAP* [Keflex 500 CAP*] 500 mg PO BID #20 cap Patient Education Materials: Cellulitis (ED), Stasis Dermatitis (ED), Metatarsalgia (DC) Referrals: Kalyn Rudolph MD [Primary Care Provider] - 1 Week Additional Instructions: THE DISCOLORATION TO YOUR LOWER LEGS IS LIKELY DUE TO STASIS DERMATITIS. WITH LONG-TERM CHRONIC SWELLING OF THE ANKLES YOU CAN DEVELOP DISCOLORATION A REACTION TO THE CONSTANT TENSION ON THE SKIN. THIS CAN OFTEN BECOME ITCHY. WHEN YOU SCRATCHED YOUR LEFT POSTERIOR ANKLE AND BROKE THE SKIN YOU CREATED A WOUND WHICH I BELIEVE HAS NOW BECOME INFECTED. TAKE THE ANTIBIOTIC TWICE DAILY FOR THE FULL 10 DAYS. KEEP YOUR LEGS ELEVATED WHENEVER SEATED. BE SURE NOT TO ALLOW YOUR LEGS TO REST ON ANYTHING FIRM THIS WILL ENCOURAGE SKIN BREAKDOWN. PILLOWS AND AIR CUSHIONS CAN BE USED TO HELP PROVIDE SOFT SUPPORT. APPLY THIN LAYER ANTIBIOTIC OINTMENT UNDER BANDAGE. I RECOMMEND AVOIDING NEOMYCIN CONTAINING PRODUCTS THEY CAN BE HIGHLY ALLERGENIC. CHANGE BANDAGE DAILY AND NEEDED IF IT BECOMES SOILED OR WET. SEEK FOLLOW-UP IF YOU DEVELOP FURTHER SPREADING REDNESS OF THE SKIN, PURULENT DRAINAGE, FEVER, INCREASED PAIN OR ANY OTHER CONCERNING SYMPTOMS. CALL THE WOUND CARE CLINIC FIRST THING WEDNESDAY MORNING TO SCHEDULE AN APPT. [facility] [phone] THE PAIN UNDER YOUR LEFT GREAT TOE IS LIKELY DUE TO PRESSURE FROM A CALLUS OVER THE METATARSAL HEAD. I RECOMMEND YOU FOLLOW-UP WITH A COMMUNICATIONS AGENT TO TALK ABOUT TREATMENT OPTIONS FOR THIS. GIVEN YOUR HISTORY OF DIABETES THERE ARE EXTRA CONCERNS ABOUT PARING DOWN THE SKIN ON YOUR FEET. BE SURE TO WEAR PADDED SHOES TO CUSHION THE AREA. KEEP YOUR FOLLOW-UP APPOINTMENT WITH DR. HAYNES THIS WEEK FOR THIS BROKEN TOE. HE MAY HAVE ADDITIONAL IDEAS ABOUT YOUR METATARSALGIA. PODIATRY IN [place] Dr. Citlalli Rose [address] [place] [address], [place] [address] - Billing Disposition and Condition Condition: STABLE Disposition: Home
== END 2019-03-24 20:10 | disposition home or self-care (01) ==
LOC: UCEAST 18:25
DX: L03.116 Cellulitis of left lower limb (principal); I87.2 Venous insufficiency (chronic) (peripheral); M77.42 Metatarsalgia, left foot; M77.41 Metatarsalgia, right foot; J44.9 Chronic obstructive pulmonary disease, unspecified; J45.909 Unspecified asthma, uncomplicated; E11.9 Type 2 diabetes mellitus without complications; I10 Essential (primary) hypertension; I50.9 Heart failure, unspecified; Z99.81 Dependence on supplemental oxygen; Z95.2 Presence of prosthetic heart valve; Z88.2 Allergy status to sulfonamides; Z87.891 Personal history of nicotine dependence
CPT/HCPCS: 99212; G0463

== ENCOUNTER 2019-05-11 17:12 | Inpatient (IN) | payer MEDICARE ==
[~2019-05-11 17:12] MED LIST: Torsemide TAB 10 MG PO PRN
--- OUTSIDE RECORDS SUMMARY | 2019-05-11 17:32 | XMS REPORT | Continuity of Care Document ---
:1930 External Reference #:[id number] Author Name Marylou Dominguez N.P. (transmitted by agent of provider Catina Guan) Address [address] [place] [address] Care Team Providers Name Role Phone Reginaldo Juarez MD - Gastroenterology Care Team Information Metal Roofer [phone] Shaneka Luther MD - Hematology & Care Team Information Metal Roofer [phone] Oncology Kalyn Rudolph MD - Internal Medicine Care Team Information Metal Roofer Problems Active Problems Provider Date Type 2 diabetes mellitus Anant Lopez M.D.,FACP Onset: 12/11/2015 Note: diet controlled Pure hypercholesterolemia Anant Lopez M.D.,FACP Onset: 02/11/2011 Cholelithiasis without obstruction Anant Lopez M.D.,FACP Onset: 2014 Idiopathic osteoporosis Anant Lopez M.D.,FACP Onset: 02/11/2011 Generalized anxiety disorder Anant Lopez M.D.,FACP Onset: 02/11/2011 Restless legs Anant Lopez M.D.,FACP Onset: 02/11/2011 Iron deficiency anemia Anant Lopez M.D.,FACP Onset: 03/11/2011 Spinal stenosis of lumbar region Anant Lopez M.D.,FACP Onset: 2010 Anemia due to chronic blood loss Anant Lopez M.D.,FACP Onset: 2010 Coronary arteriosclerosis Anant Lopez M.D.,FACP Onset: 08/26/2011 Note: PTCA 1997 Spinal stenosis of lumbar region Anant Lopez M.D.,FACP Onset: 2011 Vitamin D deficiency Anant Lopez M.D.,FACP Onset: 07/21/2012 Isolated aortic stenosis Anant Lopez M.D.,FACP Onset: 06/05/2014 Note: moderate-severe Malaise and fatigue Faustino Mann M.D. Onset: 12/24/2014 Depressive disorder Isael Barclay NP Onset: 05/08/2015 Ex-smoker Anant Lopez M.D.,FACP Onset: 11/20/2016 Asthma Anant Lopez M.D.,FACP Onset: 01/14/2018 Note: on PFTs Acquired hallux rigidus Charly Leblanc MD Onset: 03/29/2019 Nondisplaced fracture of proximal phalanx of left Charly Leblanc MD Onset: great toe, subsequent encounter for fracture with routine healing Social History Type Date Description Comments Sex Unknown Tobacco Use Start: Unknown Former Cigarette End: Unknown Smoker Cigarette Use Quit 25 Years Ago ETOH Use Denies alcohol use Recreational Drug Use Denies Drug Use Tobacco Use Start: Unknown Patient is a former 1ppd X 30 years off End: Unknown smoker and on (not during ) Smoking Status Reviewed: 05/03/19 Patient is a former 1ppd X 30 years off smoker and on (not during ) Exercise Type/Frequency Exercises rarely ROM exercises and activities around her home Allergies, Adverse Reactions, Alerts Active Allergies Reaction Severity Comments Date Iodine Urticaria, Hives Moderate 02/11/2011 Cardizem CD Throat tightness Mild 04/16/2015 Tessalon Shortness of breath, Severe 12/26/2015 confusion, chills, leg felt unusual Simvastatin myalgias, fatigue 05/22/2016 Sulfamethoxazole/Trimetho rash 06/03/2016 prim Medications Active Medications SIG Qnty Indications Ordering Date Provider Metoprolol Succinate take 1/2 tablet by 90tabs Joshua Geller 02/02/2019 ER mouth every other Ghazala Harden 25mg Tablets ER day 24HR Ropinirole HCL take 1/2 tablet bid 90tabs Amanda Bah MD 02/02/2019 0.5mg by mouth at night Tablets for restless legs Post-Op Shoe/Soft use daily as 1units S92.492A Amanda Bah MD 01/10/2019 TOP/Women/Medium directed [facility] Nitroglycerin place one tablet 25tabs Marylou ParveenShiva Dominguez, 10/18/2018 0.4mg under the tongue as N.P. Tablets Sub needed for chest pain, may repeat every 5 minutes for up to 3 total doses Nebulizer 1 unit nebulization 1units J01.90 Anais Mallory, 12/13/2017 Device with albuterol MD every 6 hours and as needed Duoneb 1 unit nebl every 6 540ml J01.90 Anias Mallory, 11/05/2017 hours as needed. MD 0.5-2.5(3)mg/3ML Office visits Solution 10/19/17 and 12/13/17. Spirometer incentive 1units J01.90 Anais Mallory, 10/25/2017 Kit spirometer, use as MD instructed Torsemide 1 tab 2x week. sun 30tabs I50.22 Joshua Geller 12/08/2016 10mg and gwen Harden M.D. Tablets Oxygen 2 l nc with 1units I50.22 Joshua Geller 12/08/2016 [facility] walking. Ghazala Harden Escitalopram Oxalate take 1 tablet by 90tabs Kalyn Rudolph MD 07/24/2016 mouth every day 10mg Tablets Roller Walker Faustino 09/12/2015 [facility] Ghazala Mann Aspirin 1 by mouth every 60units Kalyn Rudolph MD 81mg Chewtabs day Magnesium Oxide 1 by mouth every 90tabs Amanda Bah MD 250mg day Tablets Vitamin D-3 1 by mouth every 90caps E55.9 Amanda Bah MD 2000Units day Capsules Fluticasone 2 sprays each 16gm Amanda Bah MD Propionate nostril once daily 50mcg/Act as needed Suspension Z-Dqwstnxkdngl-O3-B1 take 1 tablet by 90tabs Amanda Bah MD 2 mouth every day 3-35-2mg Tablets History Medications Folic Acid-Vit B6-Vit 1 by mouth 90tabs Kalyn Rudolph MD 02/02/2019 - B12 every day 02/27/2019 0.4-50-0.1mg Tablets Acetaminophen-Codeine 1-2 by mouth 30tabs Amanda Bah MD 01/12/2019 - #3 every 6 hours 02/27/2019 300-30mg Tablets as needed for pain. Must Not Take With Alcohol. Omeprazole 1 by mouth 90caps K21.9 Kalyn Rudolph MD 11/17/2018 - 20mg every day 01/10/[address] Kurtzartan 1/2 tab every 90tabs Joshua Geller 11/10/2018 - 75mg Tablets keri Harden M.D. 02/27/2019 Medications Administered in Office Medication SIG Qnty Indications Ordering Provider Date Depomedrol 40MG Stacey Joel M.D. 12/20/2017 Injection Depomedrol 40MG Stanley Carreon M.D. 12/09/2016 Injection Depomedrol 40MG Stanley Carreon M.D. 11/11/2016 Injection Depomedrol 80MG Stacey Joel M.D. 08/07/2013 Injection Immunizations CPT Code Status Date Vaccine Reaction Lot # [id number] Given 06/17/2018 Fluzone High Dose 52124 Given 07/14/2017 Influenza Virus Vaccine, [id number] Quadrivalent, Split, Preservative Free 78160 Given 08/17/2016 Influ Virus Vaccine, [id number] Quadrivalent, Split Virus, [place] [address] Given 10/04/2015 Pneumococcal Conjugate Vaccine [id number] Valent For Intramuscular Use Q2035 Given 07/02/2015 Afluria Vaccine 53578 Given 07/13/2014 Flu Vaccine Split Virus [id number] Preservative Free For Indiv 3Yr Older Q2037 Given 06/25/2013 Fluvirin Im 3Yrs And Older Q2037 Given 07/21/2012 Fluvirin Im 3Yrs And Older [id number] Q2038 Given 07/13/2011 Fluzone Vaccine [id number] 35296 Given 09/06/2009 Influenza Virus 3Yrs & Over Pt note states 2009 13200 Given 09/06/2008 Pneumonia Vaccine Pt note states 2008 [id number] Vital Signs Date Vital Result Comment 05/03/2019 11:27am Height 56 inches 4'8" Weight 147.00 lb at home this morning per pt Heart Rate 78 /min radial, skipped beats BP Systolic Sitting 136 mmHg LA, reg cuff BP Diastolic Sitting 68 mmHg LA, reg cuff BMI (Body Mass Index) 33.0 kg/m2 Ejection Fraction 60%-65% echo 01/26/19 04/03/2019 2:31pm Height 56 inches 4'8" Weight 146.50 lb with shoes Heart Rate 98 /min left radial BP Systolic Sitting 132 mmHg ule, large cuff BP Diastolic Sitting 78 mmHg ule, large cuff O2 % BldC Oximetry 93 % room air BMI (Body Mass Index) 32.8 kg/m2 Ejection Fraction 60-65% echo 01/26/19 Results Test Date Facility Test Result H/L Range Note CBC Auto 03/20/2019 [facility] White Blood 4.8 10^3/uL Normal 3.5-10.[address] [place] [address] [phone] Red Blood Count 3.53 10^6/uL Low 3.70-4.87 Hemoglobin 10.9 g/dL Low 12.0-16.0 Hematocrit 33 % Low 35-47 Mean Corpuscular Volume 95 fL Normal 80-97 Mean Corpuscular Hemoglobin 31 pg Normal 27-31 Mean Corpuscular HGB Conc 33 g/dL Normal 31-36 Red Cell Distribution Width 20 % High 10-15 Platelet Count 126 10^3/uL Low 150-450 Mean Platelet Volume 8.7 fL Normal 7.4-10.4 Abs Neutrophils 3.3 10^3/uL Normal 1.5-7.7 Abs Lymphocytes 0.8 10^3/uL Low 1.0-4.8 Abs Monocytes 0.5 10^3/uL Normal 0-0.8 Abs Eosinophils 0.1 10^3/uL Normal 0-0.6 Abs Basophils 0.1 10^3/uL Normal 0-0.2 Abs Nucleated RBC 0.0 10^3/uL Granulocyte % 68.6 % Lymphocyte % 17.4 % Monocyte % 9.6 % Eosinophil % 3.0 % Basophil % 1.4 % Nucleated Red Blood Cells % 0.1 Laboratory test 02/24/2019 [facility] Direct NEGATIVE [address] [place] [address] [phone] Laboratory test 2019 [facility] LDH 246 U/L Normal 140- [address] [place] [address] [phone] CBC Auto Diff 2019 [facility] White Blood 5.0 10^3/uL Normal 3.5-[address] Count 0.8 [place] [address] [phone] Red Blood Count 2.94 10^6/uL Low 3.70-4.87 Hemoglobin 8.7 g/dL Low 12.0-16.0 Hematocrit 26 % Low 35-47 Mean Corpuscular Volume 90 fL Normal 80-97 Mean Corpuscular Hemoglobin 30 pg Normal 27-31 Mean Corpuscular HGB Conc 33 g/dL Normal 31-36 Red Cell Distribution Width 19 % High 10-15 Platelet Count 119 10^3/uL Low 150-450 Mean Platelet Volume 9.4 fL Normal 7.4-10.4 Abs Neutrophils 3.9 10^3/uL Normal 1.5-7.7 Abs Lymphocytes 0.6 10^3/uL Low 1.0-4.8 Abs Monocytes 0.3 10^3/uL Normal 0-0.8 Abs Eosinophils 0.1 10^3/uL Normal 0-0.6 Abs Basophils 0.0 10^3/uL Normal 0-0.2 Abs Nucleated RBC 0.0 10^3/uL Granulocyte % 77.0 % Lymphocyte % 12.6 % Monocyte % 6.9 % Eosinophil % 2.9 % Basophil % 0.6 % Nucleated Red Blood Cells % 0.0 Comp Metabolic 2019 [facility] Sodium 139 mmol/L Normal 135-[address] [place] [address] [phone] Potassium 4.5 mmol/L Normal 3.5-5.0 Chloride 101 mmol/L Normal 101-111 Co2 Carbon Dioxide 33 mmol/L High 22-32 Anion Gap 5 mmol/L Normal 2-11 Glucose 170 mg/dL High 70-100 Blood Urea Nitrogen 24 mg/dL Normal 6-24 Creatinine 0.52 mg/dL Normal 0.51-0.95 BUN/Creatinine Ratio 46.2 High 8-20 Calcium 9.3 mg/dL Normal 8.6-10.3 Total Protein 6.0 g/dL Low 6.4-8.9 Albumin 3.6 g/dL Normal 3.2-5.2 Globulin 2.4 g/dL Normal 2-4 Albumin/Globulin Ratio 1.5 Normal 1-3 Total Bilirubin 0.40 mg/dL Normal 0.2-1.0 Alkaline Phosphatase 62 U/L Normal 34-104 Alt 50 U/L Normal 7-52 Ast 29 U/L Normal 13-39 Egfr Non- 111.0 >60 Egfr 134.3 >60 2 Laboratory test finding 2019 [facility] LDH TNP U/L 140 -271 3 [address] [place] [address] [phone] Ferritin 17.6 ng/mL Normal 11-307 Erythropoietin 152 mIU/mL Abnormal 2.6 - 18.5 4 Haptoglobin <14 mg/dL Abnormal 30 - 200 5 Laboratory test 01/25/2019 [facility] Magnesium 2.2 mg/dL Normal 1.9-2.7 finding [address] [place] [address] [phone] Troponin-I (TnI) 0.08 ng/mL Critical high <0.04 6 Alcohol 66 mg/dL High <10 Laboratory test 01/25/2019 [facility] Ammonia 53 mcmol/L Normal 16-53 finding [address] [place] [address] [phone] Lactic Acid 0.7 mmol/L Normal 0.5-2.0 7 Laboratory 01/25/2019 [facility] Troponin-I 0.08 Critical < 0.04 8 test finding 101 [facility] (TnI) ng/[place] [address] [phone] CBC Auto Diff 01/25/2019 [facility] White Blood 4.1 Normal 3.5 -10.8 101 Count 10^3/[place] [address] [phone] Red Blood Count 3.40 10^6/uL Low 3.70-4.87 Hemoglobin 9.4 g/dL Low 12.0-16.0 Hematocrit 31 % Low 35-47 Mean Corpuscular Volume 90 fL Normal 80-97 Mean Corpuscular Hemoglobin 28 pg Normal 27-31 Mean Corpuscular HGB Conc 31 g/dL Normal 31-36 Red Cell Distribution Width 16 % High 10.5-15 Platelet Count 140 10^3/uL Low 150-450 Mean Platelet Volume 8.3 fL Normal 7.4-10.4 Abs Neutrophils 3.1 10^3/uL Normal 1.5-7.7 Abs Lymphocytes 0.6 10^3/uL Low 1.0-4.8 Abs Monocytes 0.3 10^3/uL Normal 0-0.8 Abs Eosinophils 0.1 10^3/uL Normal 0-0.6 Abs Basophils 0.1 10^3/uL Normal 0-0.2 Abs Nucleated RBC 0.0 10^3/uL Granulocyte % 74.8 % Lymphocyte % 15.5 % Monocyte % 6.2 % Eosinophil % 2.2 % Basophil % 1.3 % Nucleated Red Blood Cells % 0.0 Inr/Protime 01/25/2019 [facility] Inr 0.97 Normal 0.82-1.[address] [place] [address] [phone] Laboratory test 01/25/2019 [facility] Partial 28.4 Normal 26.0 -36.[address] [address] Time PTT [phone] Lactic Acid 2.9 mmol/L Critical high 0.5-2.0 10 Comp Metabolic 01/25/2019 [facility] Sodium 137 mmol/L Normal 135-[address] [place] [address] [phone] Potassium 4.3 mmol/L Normal 3.5-5.0 Chloride 103 mmol/L Normal 101-111 Co2 Carbon Dioxide 27 mmol/L Normal 22-32 Anion Gap 7 mmol/L Normal 2-11 Glucose 134 mg/dL High 70-100 Blood Urea Nitrogen 19 mg/dL Normal 6-24 Creatinine 0.54 mg/dL Normal 0.51-0.95 BUN/Creatinine Ratio 35.2 High 8-20 Calcium 8.9 mg/dL Normal 8.6-10.3 Total Protein 6.3 g/dL Low 6.4-8.9 Albumin 3.8 g/dL Normal 3.2-5.2 Globulin 2.5 g/dL Normal 2-4 Albumin/Globulin Ratio 1.5 Normal 1-3 Total Bilirubin 0.30 mg/dL Normal 0.2-1.0 Alkaline Phosphatase 76 U/L Normal 34-104 Alt 35 U/L Normal 7-52 Ast 31 U/L Normal 13-39 Egfr Non- 106.5 >60 Egfr 128.9 >60 11 Laboratory test 01/24/2019 [facility] Troponin-I 0.01 <0.04 [address] (TnI) ng/[place] [address] [phone] Comp Metabolic 01/24/2019 [facility] Sodium 136 Normal 135- [address] mmol/[place] [address] [phone] Potassium 4.6 mmol/L Normal 3.5-5.0 Chloride 103 mmol/L Normal 101-111 Co2 Carbon Dioxide 23 mmol/L Normal 22-32 Anion Gap 10 mmol/L Normal 2-11 Glucose 129 mg/dL High 70-100 Blood Urea Nitrogen 21 mg/dL Normal 6-24 Creatinine 0.62 mg/dL Normal 0.51-0.95 BUN/Creatinine Ratio 33.9 High 8-20 Calcium 9.0 mg/dL Normal 8.6-10.3 Albumin 3.7 g/dL Normal 3.2-5.2 Alkaline Phosphatase 72 U/L Normal 34-104 Alt 35 U/L Normal 7-52 Egfr Non- 90.8 >60 Egfr 109.9 >60 13 Total Protein 6.3 g/dL Low 6.4-8.9 Globulin 2.6 g/dL Normal 2-4 Albumin/Globulin Ratio 1.4 Normal 1-3 Ast 35 U/L Normal 13-39 Total Bilirubin 0.30 mg/dL Normal 0.2-1.0 Laboratory test 01/24/2019 [facility] Magnesium 2.1 mg/dL Normal 1.9-2.7 [address] [place] [address] [phone] C Reactive Protein 2.22 mg/L Normal <8.01 TSH (Thyroid Stim Horm) 3.31 mcIU/mL Normal 0.34-5.60 Cell Morphology 01/24/2019 [facility] Hypochromasia 2+ [address] [place] [address] [phone] Polychromasia 1+ Elliptocyte 1+ Urinalysis Profile 01/24/2019 [facility] Urine Color Yellow [address] [place] [address] [phone] Urine Appearance Cloudy Urine Specific [place]son 1.023 Normal 1.010-1.030 Urine pH 5.0 Normal 5-9 Urine Urobilinogen Negative Negative Urine Ketones Negative Negative Urine Protein Negative Negative Urine Leukocytes Negative Negative Urine Blood Negative Negative Urine Nitrite Negative Negative Urine Bilirubin Negative Negative Urine Glucose Negative Negative Laboratory test 01/24/2019 [facility] Pathologist (SEE NOTE) [address] [place] [address] [phone] CBC Auto Diff 01/24/2019 [facility] White Blood 4.1 Normal 3.5 - [address] Count 10^3/uL 10.8 [place] [address] [phone] Red Blood Count 3.52 10^6/uL Low 3.70-4.87 Hemoglobin 9.8 g/dL Low 12.0-16.0 Hematocrit 32 % Low 35-47 Mean Corpuscular Volume 91 fL Normal 80-97 Mean Corpuscular Hemoglobin 28 pg Normal 27-31 Mean Corpuscular HGB Conc 31 g/dL Normal 31-36 Red Cell Distribution Width 16 % High 10.5-15 Platelet Count 80 10^3/uL Low 150-450 Mean Platelet Volume 8.0 fL Normal 7.4-10.4 Abs Neutrophils 2.7 10^3/uL Normal 1.5-7.7 Abs Lymphocytes 1.0 10^3/uL Normal 1.0-4.8 Abs Monocytes 0.3 10^3/uL Normal 0-0.8 Abs Eosinophils 0.1 10^3/uL Normal 0-0.6 Abs Basophils 0.0 10^3/uL Normal 0-0.2 Abs Nucleated RBC 0.0 10^3/uL Granulocyte % 65.6 % Lymphocyte % 23.2 % Monocyte % 7.3 % Eosinophil % 2.9 % Basophil % 1.0 % Nucleated Red Blood Cells % 0.2 Laboratory 01/24/2019 [facility] Lactic 3.0 Critical 0.5-2.0 16 test finding [address] Acid mmol/[place] [address] [phone] CBC Auto Diff 01/05/2019 [facility] White 3.6 Normal 3.5-10.[address] Blood 10^3/[place] [address] Count [phone] Red Blood Count 3.40 10^6/uL Low 3.70-4.87 Hemoglobin 9.9 g/dL Low 12.0-16.0 Hematocrit 31 % Low 35-47 Mean Corpuscular Volume 92 fL Normal 80-97 Mean Corpuscular Hemoglobin 29 pg Normal 27-31 Mean Corpuscular HGB Conc 32 g/dL Normal 31-36 Red Cell Distribution Width 17 % High 10.5-15 Platelet Count 136 10^3/uL Low 150-450 Mean Platelet Volume 9.1 fL Normal 7.4-10.4 Abs Neutrophils 2.4 10^3/uL Normal 1.5-7.7 Abs Lymphocytes 0.7 10^3/uL Low 1.0-4.8 Abs Monocytes 0.3 10^3/uL Normal 0-0.8 Abs Eosinophils 0.1 10^3/uL Normal 0-0.6 Abs Basophils 0.0 10^3/uL Normal 0-0.2 Abs Nucleated RBC 0.0 10^3/uL Granulocyte % 66.2 % Lymphocyte % 20.3 % Monocyte % 8.9 % Eosinophil % 3.7 % Basophil % 0.9 % Nucleated Red Blood Cells % 0.0 Retic Count 01/05/2019 [facility] Retic Count 1.9 % High 0.5- 1.[address] [place] [address] [phone] Corrected Retic Count 1.3 % Normal 0.5-1.5 Maturation Factor Retic 1.5 Retic Index 0.90 Mean Retic Volume 123.7 Immature Retic Fraction 0.50 RBC Retic Count 3.40 10^6/uL Low 3.70-4.87 Hematocrit for Retic CNT 31 % Low 35-47 1 IV IRON 2 Because ethnic data is not always readily [...] 15-29 5 Kidney failure <15 (or dialysis) 3 Unable to report test result due to hemolysis. 4 Test Performed by: [facility] [place] [address] [place] [address] 5 Test Performed by: [facility] [place] [address] 6 Result TnIDx:0.08 Called to ADAMARIS Carlisle at: 12:12:23 by:[id number] Read back by:ADAMARIS Carlisle Troponin-I testing on Plasma Separator Tubes (PST) has a known false positive rate of 0.20-0.40%. All positive troponins reflex immediately to secondary confirmatory testing. Using the [employer]ne[employer] DxI 800 Access Immunoassay systems, the 99th percentile upper reference limit was demonstrated to be < 0.03 ng/mL. 7 [facility] Severe Sepsis and Septic Shock Management Bundle Measure requires all lactic acids initially measuring >2.0 mmol/L be repeated. 8 Result TnIDx:0.08 Called to [id number] at: 16:07:30 by:[id number] Read back by: [id number] Troponin-I testing on Plasma Separator Tubes (PST) has a known false positive rate of 0.20-0.40%. All positive troponins reflex immediately to secondary confirmatory testing. Using the [employer] DxI 800 Access Immunoassay systems, the 99th percentile upper reference limit was demonstrated to be < 0.03 ng/mL. 9 Standard intensity warfarin therapeutic range: 2.0-3.0 High intensity warfarin therapeutic range: 2.5-3.5 10 Critical Result LACT:2.9 Called to ADAMARIS Carlisle at: 12:05:13 by:[id number] Read back by:ADAMARIS Carlisle [facility] Severe Sepsis and Septic Shock Management Bundle Measure requires all lactic acids initially measuring >2.0 mmol/L be repeated. 11 Because ethnic data is not always readily [...] 15-29 5 Kidney failure <15 (or dialysis) 12 Troponin-I testing on Plasma Separator Tubes (PST) has a known false positive rate of 0.20-0.40%. All positive troponins reflex immediately to secondary confirmatory testing. Using the [employer] DxI 800 Access Immunoassay systems, the 99th percentile upper reference limit was demonstrated to be < 0.03 ng/mL. 13 Because ethnic data is not always readily [...] 15-29 5 Kidney failure <15 (or dialysis) 14 [MG] affected by ICTERUS 15 Normocytic anemia. Moderate thrombocytopenia. No evidence of a hemolytic process. Reviewed by Jamila Covarrubias MD 16 Critical Result LACT:3.0 Called to ANNA at: 13:30:01 by:[id number] Read back by:ANNA [facility] Severe Sepsis and Septic Shock Management Bundle Measure requires all lactic acids initially measuring >2.0 mmol/L be repeated. Procedures Date Code Description Status 05/03/2019 30762 EKG Tracing & Interpretation Completed 04/03/2019 65959 EKG Tracing & Interpretation Completed 01/26/2019 53108 ECHO Transthorasic Realtime 2D W Doppler & Color Flow Completed [facility] 01/24/2018 [id number] Diabetic Retinal Eye Exam Completed 06/23/2016 [id number] Diabetic Retinal Eye Exam Completed 06/07/2015 [id number] Diabetic Retinal Eye Exam Completed 06/06/2014 [id number] Diabetic Retinal Eye Exam Completed 02/21/2013 [id number] Bone Mineral Density Test Completed 2013 [id number] Diabetic Retinal Eye Exam Completed 09/09/2011 [id number] Colonoscopy Completed Medical Devices Description No Information Available Encounters Type Date Location Provider Dx Diagnosis Office Visit 04/03/2019 [facility] Joshua Geller I10 Essential ( primary) 2:40p Ghazala Harden hypertension E11.69 Type 2 diabetes mellitus with other specified complication R53.83 Other fatigue I35.0 Nonrheumatic aortic (valve) stenosis I50.32 Chronic diastolic (congestive) heart failure R06.02 Shortness of breath I27.20 Pulmonary hypertension, unspecified Office Visit 03/29/2019 2:45p Orthopedic Charly Leblanc, S92.415D Nondisp fx of Services Of prox phalanx C.M.A. 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 other specified complication S92.415D Nondisp fx of prox phalanx of l great toe, 7thD Office Visit 02/01/2019 10:32a [facility] R53.83 Other fatigue Assoc,imelda Oates, MARKETING COMPLIANCE MANAGER Hospitalists R29.6 Repeated falls F10.10 Alcohol abuse, uncomplicated D69.6 Thrombocytopenia, unspecified G25.81 Restless legs syndrome D50.9 Iron deficiency anemia, unspecified Office Visit 01/31/2019 10:31a [facility] R29.6 Repeated falls Assoc,imelda Oates, MARKETING COMPLIANCE MANAGER Hospitalists F10.10 Alcohol abuse, uncomplicated G25.81 Restless legs syndrome R40.0 Somnolence D50.9 Iron deficiency anemia, unspecified Office Visit 01/30/2019 10:31a [facility] G25.81 Restless legs Assoc,imelda Oates NP syndrome Hospitalists F10.10 Alcohol abuse, uncomplicated R40.0 Somnolence R29.6 Repeated falls Office Visit 01/29/2019 10:31a [facility] R29.6 Repeated falls Assoc,imelda Oates, MARKETING COMPLIANCE MANAGER Hospitalists F10.10 Alcohol abuse, uncomplicated G25.81 Restless legs syndrome R40.0 Somnolence Office Visit 01/28/2019 10:30a [facility] R29.6 Repeated falls Assoc,[facility] Danny, Hospitalists MARKETING COMPLIANCE MANAGER F10.10 Alcohol abuse, uncomplicated G25.81 Restless legs syndrome I25.10 Athscl heart disease of [place]ena coronary artery w/o ang pctrs I10 Essential (primary) hypertension Office Visit 01/27/2019 10:30a [facility] R29.6 Repeated falls Assoc, Wayne Delgado Hospitalists MARKETING COMPLIANCE MANAGER F10.10 Alcohol abuse, uncomplicated G25.81 Restless legs syndrome I25.10 Athscl heart disease of [place] coronary artery w/o ang pctrs I10 Essential (primary) hypertension Office Visit 01/26/2019 10:29a [facility] R29.6 Repeated falls Assoc,[facility] Danny, Hospitalists MARKETING COMPLIANCE MANAGER F10.10 Alcohol abuse, uncomplicated E87.2 Acidosis G25.81 Restless legs syndrome I10 Essential (primary) hypertension I25.10 Athscl heart disease of [place] coronary artery w/o ang pctrs Office Visit 01/25/2019 10:29a [facility] R53.83 Other fatigue Assoc,imelda Bass, JAIRO Hospitalists R29.6 Repeated falls F10.10 Alcohol abuse, uncomplicated D69.6 Thrombocytopenia, unspecified Office Visit 01/19/2019 3:00p Pulmonology And Anais J44.9 Chronic Sleep Services Of MD Mohamud obstructive Angular Developer pulmonary disease, unspecified R09.02 Hypoxemia Office Visit 01/16/2019 1:30p Orthopedic Charly Benji, S92.425A Nondisp fx of Services Of MD osmel Michaels.M.A. phalanx of left great toe, init S93.492A Sprain of other ligament of left ankle, initial encounter Office Visit 01/10/2019 1:00p [facility] Internal Amanda Bah MD Z00.01 [facility] findings D50.9 Iron deficiency anemia, unspecified E11.69 Type 2 diabetes mellitus with other specified complication D61.818 Other pancytopenia I10 Essential (primary) hypertension J44.9 Chronic obstructive pulmonary disease, unspecified S92.492A Oth fracture of left great toe, init for clos fx R19.4 Change in bowel habit 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 other specified complication I25.10 Athscl heart disease of galena coronary artery w/o ang pctrs I35.0 Nonrheumatic aortic (valve) stenosis R06.00 Dyspnea, unspecified R60.9 Edema, unspecified Z95.2 Presence of prosthetic heart valve Assessments Date Code Description Provider 05/03/2019 I10 Essential (primary) hypertension Marylou Dominguez, N.P. 05/03/2019 I35.0 Aortic valve stenosis Marylou Dominguez, N.P. 05/03/2019 I50.32 Chronic diastolic heart failure Marylou Dominguez, N.P. 05/03/2019 R06.02 Dyspnea on exertion Marylou Dominguez, N.P. 05/03/2019 R07.9 Chest pain, unspecified Marylou Dominguez, N.P. 04/03/2019 I10 Essential (primary) hypertension Joshua Harden M.D. 04/03/2019 E11.69 Type 2 diabetes mellitus with other Joshua Harden M.D. specified complication 04/03/2019 R53.83 Other fatigue Joshua Harden M.D. 04/03/2019 I35.0 Aortic valve stenosis Joshua Harden M.D. 04/03/2019 I50.32 Chronic diastolic heart failure Joshua Harden M.D. 04/03/2019 R06.02 Dyspnea on exertion Joshua Harden M.D. 04/03/2019 I27.20 Pulmonary hypertension Joshua Harden M.D. 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 Kalyn Rudolph MD and subcutaneous tissue o 02/16/2019 G25.81 Restless legs syndrome Kalyn Rudolph MD 02/16/2019 I10 Essential (primary) hypertension Kalyn Rudolph MD 02/16/2019 G47.00 Insomnia, unspecified Kalyn Rudolph MD 02/15/2019 E11.69 Type 2 diabetes mellitus with other Charly Leblanc MD specified complication 02/15/2019 S92.415D Nondisp fx of prox phalanx of l great Charly Leblanc MD toe, 7thD 02/01/2019 R53.83 Other fatigue Alena Shortle, MARKETING COMPLIANCE MANAGER 02/01/2019 R29.6 Repeated falls Alena Shortle, MARKETING COMPLIANCE MANAGER 02/01/2019 F10.10 Alcohol abuse, uncomplicated Alena Shortle, MARKETING COMPLIANCE MANAGER 02/01/2019 D69.6 Thrombocytopenia, unspecified Alena Shortle, MARKETING COMPLIANCE MANAGER 02/01/2019 G25.81 Restless legs syndrome Alena Shortle, MARKETING COMPLIANCE MANAGER 02/01/2019 D50.9 Iron deficiency anemia, unspecified Alena Shortle, MARKETING COMPLIANCE MANAGER 01/31/2019 R29.6 Repeated falls Alena Shortle, MARKETING COMPLIANCE MANAGER 01/31/2019 F10.10 Alcohol abuse, uncomplicated Alena Shortle, MARKETING COMPLIANCE MANAGER 01/31/2019 G25.81 Restless legs syndrome Alena Shortle, MARKETING COMPLIANCE MANAGER 01/31/2019 R40.0 Somnolence Alena Shortle, MARKETING COMPLIANCE MANAGER 01/31/2019 D50.9 Iron deficiency anemia, unspecified Alena Shortle, MARKETING COMPLIANCE MANAGER 01/30/2019 G25.81 Restless legs syndrome Alena Shortle, MARKETING COMPLIANCE MANAGER 01/30/2019 F10.10 Alcohol abuse, uncomplicated Alena Shortle, MARKETING COMPLIANCE MANAGER 01/30/2019 R40.0 Somnolence Alena Shortle, MARKETING COMPLIANCE MANAGER 01/30/2019 R29.6 Repeated falls Alena Shortle, MARKETING COMPLIANCE MANAGER 01/29/2019 R29.6 Repeated falls Alena Shortle, MARKETING COMPLIANCE MANAGER 01/29/2019 F10.10 Alcohol abuse, uncomplicated Alena Shortle, MARKETING COMPLIANCE MANAGER 01/29/2019 G25.81 Restless legs syndrome Alena Shortle, MARKETING COMPLIANCE MANAGER 01/29/2019 R40.0 Somnolence Alena Shortle, MARKETING COMPLIANCE MANAGER 01/28/2019 R29.6 Repeated falls Radha Delgado, MARKETING COMPLIANCE MANAGER 01/28/2019 F10.10 Alcohol abuse, uncomplicated Radha Delgado, MARKETING COMPLIANCE MANAGER 01/28/2019 G25.81 Restless legs syndrome Radha Delgado, MARKETING COMPLIANCE MANAGER 01/28/2019 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, MARKETING COMPLIANCE 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 01/28/2019 I10 Essential (primary) hypertension Radha Delgado, MARKETING COMPLIANCE MANAGER 01/27/2019 R29.6 Repeated falls Radha Delgado, MARKETING COMPLIANCE MANAGER 01/27/2019 F10.10 Alcohol abuse, uncomplicated Radha Delgado, MARKETING COMPLIANCE MANAGER 01/27/2019 G25.81 Restless legs syndrome Radha Delgado, MARKETING COMPLIANCE MANAGER 01/27/2019 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, MARKETING COMPLIANCE 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 01/25/2019 R53.83 Other fatigue Monse Bass, MARKETING COMPLIANCE MANAGER 01/25/2019 R29.6 Repeated falls Monse Bass, MARKETING COMPLIANCE MANAGER 01/25/2019 F10.10 Alcohol abuse, uncomplicated Monse Bass, MARKETING COMPLIANCE MANAGER 01/25/2019 D69.6 Thrombocytopenia, unspecified Monse Shelia, MARKETING COMPLIANCE MANAGER 01/19/2019 J44.9 Chronic obstructive pulmonary Anais Mallory MD disease, unspecified 01/19/2019 R09.02 Hypoxemia Anais Mallory MD 01/16/2019 S92.425A Nondisplaced fracture of distal Charly Leblanc MD phalanx of left great toe, i 01/16/2019 S93.492A Sprain of other ligament of left Charly Leblanc MD ankle, initial encounter 01/10/2019 Z00.01 Encounter for general adult medical Amanda Bah MD examination with abnorma 01/10/2019 D50.9 Iron deficiency anemia, unspecified Amanda Bah MD 01/10/2019 E11.69 Type 2 diabetes mellitus with other Amanda Bah MD specified complication 01/10/2019 D61.818 Other pancytopenia Amanda Bah MD 01/10/2019 I10 Essential (primary) hypertension Amanda Bah MD 01/10/2019 J44.9 Chronic obstructive pulmonary Amanda Bah MD disease, unspecified 01/10/2019 S92.492A Other fracture of left great toe, Amanda Bah MD initial encounter for clos 01/10/2019 R19.4 Change in bowel habit Amanda Bah MD 01/10/2019 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 galena coronary artery with 11/11/2018 I35.0 Nonrheumatic aortic (valve) stenosis Marylou Dominguez, N.P. 11/11/2018 R06.00 Dyspnea, unspecified Marylou Saini. Alberto, N.P. 11/11/2018 R60.9 Edema, unspecified Marylou S. Alberto, N.P. 11/11/2018 Z95.2 Presence of prosthetic heart valve Marylou Dominguez, N.P. Plan of Treatment Future Appointment(s):05/26/2019 3:00 pm - [place] [facility] Schedule at [facility]08/18/2019 2:40 pm - Joshua Harden M.D. at [facility] 3:40 pm - Kalyn Rudolph MD at [facility] Internal Medicine - [facility]05/03/2019 - Marylou Dominguez, N.P.I10 Essential (primary) rlvjwicgnsdvZ42.0 Aortic valve stenosisRecommendations:Echo as femymqbG56.32 Chronic diastolic heart hcnhdolP86.02 Dyspnea on mmabeifoH82.9 Chest pain, unspecifiedFollow up:[facility] 08/2019Recommendations:Suspect musculoskeletal We will check in with you in a week and see if pain persists Then I would recommend stress test and possibly a nitro patch. 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 Patient is ready in a postop, wooden soled shoe [address] [place] [id number] [phone] Anais Mallory MD Sent 01/19/[address] [place] [address] [phone] Shaneka Luther MD pt with pancytopenia and intermittent anemic Scheduled Please call daughter-Francy Hood @ [phone] to schedule the [address] [place] [address] [phone] Tracy Lemons M.D. patient with abdominal pain, change on Closed stool patterns and bowel habits. She also has hx of upper (gastric ulcer) and lower GI bleed (AVM) Please call daughterJose L Hood @[phone] to schedule [address] [place] [address] [phone] Citlalli Rose DPM pt with diabetes, needs exam and fitting for Sent orthopedic shoes [address] [facility] [address] [phone]
[2019-05-11] MEDS ORDERED: rOPINIRole TAB* 1 MG PO ONE (18:06)
[2019-05-11 18:31] LABS: ABS Basophils 0.1 10^3/ul (0-0.2); ABS Eosinophils 0.2 10^3/ul (0-0.6); ABS Lymphocytes 1.2 10^3/ul (1.0-4.8); ABS Monocytes 0.5 10^3/ul (0-0.8); ABS Neutrophils 3.9 10^3/ul (1.5-7.7); Hematocrit 34 % (35-47); Hemoglobin 11.7 g/dL (12.0-16.0); Lymphocyte % 20.6 %; Mean Corpuscular HGB Conc 35 g/dL (31-36); Mean Corpuscular Hemoglobin 33 pg (27-31); Mean Corpuscular Volume 94 fL (80-97); Mean Platelet Volume 8.6 fL (7.4-10.4); Nucleated Red Blood Cells % 0.1; Platelet Count 123 10^3/uL (150-450); Red Blood Count 3.58 10^6 /uL (3.70-4.87); Red Cell Distribution Width 15 % (10-15); White Blood Count 5.9 10^3/uL (3.5-10.8)
[2019-05-11 18:37] LABS: INR 0.95 (0.82-1.09)
[2019-05-11 18:54] LABS: ALT 33 U/L (7-52); AST 28 U/L (13-39); Albumin 3.8 g/dL (3.2-5.2); Albumin/Globulin Ratio 1.7 (1-3); Alkaline Phosphatase 64 U/L (34-104); Anion Gap 3 mmol/L (2-11); BUN/Creatinine Ratio 47.9 (8-20); Blood Urea Nitrogen 23 mg/dL (6-24); CO2 Carbon Dioxide 33 mmol/L (22-32); Calcium 9.5 mg/dL (8.6-10.3); Chloride 103 mmol/L (101-111); EGFR African American 147.3 (>60); EGFR Non-African American 121.8 (>60); Globulin 2.2 g/dL (2-4); Glucose 109 mg/dL (70-100); Potassium 4.2 mmol/L (3.5-5.0); Sodium 139 mmol/L (135-145)
[2019-05-11 19:02] LABS: Troponin I 0.29 ng/mL (<0.04)
[2019-05-11] MEDS ORDERED: Lorazepam PYXIS KEY PRN (19:21)
[2019-05-11] MEDS ORDERED: LORazepam INJ* 2 MG/ML 1 ML VIAL IV ONE (19:21)
[2019-05-11] MEDS ORDERED: Lorazepam PYXIS KEY ONE (19:30)
--- NOTE | 2019-05-11 20:02 | ED ---
HPI Chest Pain - HPI Summary HPI Summary: 89 year old F presenting to [facility] with a chief complaint of chest pain (ROSEANNE) an hour after she woke up today, 05/11/19. The patient rates the pain 0/10 in severity since her chest pain has subsided since the onset. Patient had an appointment today with Dr. Harden, profile shaper operator, to get some lab work done. Dr. Harden found that her troponin was elevated. Since she has been having increasing chest pain for the past few weeks, this was of concern, so she was sent to the ED. Patient denies SOB, but confirms that she had been diaphoretic and nauseous this morning, but those symptoms have been resolved since onset. Patient has been taking nitroglycerin which she last took this morning. Patient has hx of NV over twenty years ago, and has an hx of restless leg syndrome. EKG at her radiology appointment was similar to her last EKG. Patient reports that the pain she was experiencing today was similar to that experienced before her last NV 20 years ago. - History of Current Complaint Chief Complaint: EDChestPainROMI Time Seen by Provider: 05/11/19 17:17 Hx Obtained From: Patient Onset/Duration: Started Hours Ago - Onset an hour after patient woke up today, Resolved Current Severity: None Pain Intensity: 0 Pain Scale Used: 0-10 Numeric Chest Pain Location: Diffuse Chest Pain Radiates: No Character: Dull/Aching Aggravating Factor(s): Nothing Alleviating Factor(s): Nothing Associated Signs and Symptoms: Positive: Chest Pain, Diaphoresis, Nausea. Negative: Shortness of Breath Related History: Similar Episode/Dx as: - NV 20 years ago - Additional Pertinent History Primary Care Physician: [id number] - Allergy/Home Medications Allergies/Adverse Reactions: Allergies Allergy/AdvReac Type Severity Reaction Status Date / Time benzonatate Allergy Altered Verified 03/24/19 18:47 [From Jaime Merida] Mental Status diltiazem Allergy Dizziness Verified 03/24/19 18:47 iodine Allergy Hives Verified 03/24/19 18:47 simvastatin Allergy Hives Verified 03/24/19 18:47 sulfamethoxazole Allergy Swelling Verified 03/24/19 18:47 [From Bactrim] Of Face,Lips,& Throat trimethoprim [From Bactrim] Allergy Swelling Verified 03/24/19 18:47 Of Face,Lips,& Throat Home Medications: Home Medications Magnesium Oxide [Magnesium] 250 mg PO DAILY 05/11/19 [History Confirmed 05/11/19 ] Ropinirole TAB* [Requip TAB*] 0.5 mg PO BEDTIME 05/11/19 [History Confirmed 01/22] PMH/Surg Hx/FS Hx/Imm Hx Endocrine/Hematology History: Reports: Hx Diabetes - 2 Denies: Hx Anticoagulant Therapy, Hx Thyroid Disease Cardiovascular History: Reports: Hx Angina, Hx Coronary Artery Disease, Hx Hypercholesterolemia, Hx Hypertension, Hx Myocardial Infarction, Hx Valvular Heart Disease Respiratory History: Reports: Hx Asthma, Hx Chronic Bronchitis, Hx Chronic Obstructive Pulmonary Disease (COPD) - using nebulizer, Hx Sleep Apnea - used a CPAP in the past GI History: Reports: Hx Gall Bladder Disease - has gallstones Denies: Hx Ulcer History: Reports: Hx Kidney Stones Musculoskeletal History: Reports: Hx Osteoporosis - right knee Denies: Hx Rheumatoid Arthritis Sensory History: Reports: Hx Cataracts - surgery on both eyes Denies: Hx Contacts or Glasses, Hx Hearing Aid Opthamlomology History: Reports: Hx Cataracts - surgery on both eyes Denies: Hx Contacts or Glasses Neurological History: Denies: Hx Headaches, Hx Seizures Psychiatric History: Reports: Hx Anxiety, Hx Depression, Hx Post Traumatic Stress Disorder - per daughter, Hx Substance Abuse Denies: Hx Attention Deficit Hyperactivity Disorder, Hx Eating Disorder, Hx Panic Disorder, Hx Inpatient Treatment, Hx Community Mental Health Tx, Hx Schizophrenia, Hx Bipolar Disorder, Hx Suicide Attempt, Hx of Violent Episodes Against Others - Surgical History Surgical History: Yes Surgery Procedure, Year, and Place: appe, ovarian cyst, tubal ligation, gum surgery wtih dental implants, bilat cataracts, cardiac stents. - Immunization History Date of Tetanus Vaccine: unk Date of Influenza Vaccine: 05/21/15 Infectious Disease History: No Infectious Disease History: Denies: Hx Clostridium Difficile, Hx Hepatitis, Hx Human Immunodeficiency Virus (HIV), Hx of Known/Suspected MRSA, Hx Shingles, Hx Tuberculosis, Traveled Outside the [place] in Last 30 Days - Family History Known Family History: Positive: Other - Osteoarthritis Negative: Cardiac Disease - Social History Alcohol Use: None Alcohol Amount: 2 drinks a day Hx Substance Use: No Substance Use Type: Reports: None Hx Tobacco Use: Yes Smoking Status (MU): Former Smoker Type: Cigarettes Amount Used/How Often: quit 30 y ears ago Review of Systems Positive: Skin Diaphoresis - resolved Positive: Chest Pain - resolved Positive: Nausea - resolved All Other Systems Reviewed And Are Negative: Yes Physical Exam - Summary Physical Exam Summary: Appearance: The patient is well-nourished in no acute distress and in no acute pain. Skin: The skin is warm and dry, and skin color reflects adequate perfusion. HEENT: The head is normocephalic and atraumatic. The pupils are equal and reactive. The conjunctivae are clear and without drainage. Nares are patent and without drainage. Mouth reveals moist mucous membranes, and the throat is without erythema and exudate. The external ears are intact. The ear canals are patent and without drainage. The tympanic membranes are intact. Neck: The neck is supple with full range of motion and non-tender. There are no carotid bruits. There is no neck vein distension. Respiratory: Chest is non-tender. Lungs are clear to auscultation and breath sounds are symmetrical and equal. Cardiovascular: Heart is regular rate and rhythm. There is no murmur or rub auscultated. There is no peripheral edema and pulses are symmetrical and equal. Abdomen: The abdomen is soft and non-tender. There are normal bowel sounds heard in all four quadrants and there is no organomegaly palpated. Musculoskeletal: There is no back tenderness noted. Extremities are non-tender with full range of motion. There is good capillary refill. There is no peripheral edema or calf tenderness elicited. Neurological: Patient is alert and oriented to person, place and time. The patient has symmetrical motor strength in all four extremities. Cranial nerves are grossly intact. Deep tendon reflexes are symmetrical and equal in all four extremities. Psychiatric: The patient has an appropriate affect and does not exhibit any anxiety or depression. Triage Information Reviewed: Yes Vital Signs On Initial Exam: Initial Vitals Temp Pulse Resp BP Pulse Ox 97.2 F 77 16 114/65 97 05/11/19 17:13 05/11/19 17:13 05/11/19 17:13 05/11/19 17:13 05/11/19 17:13 Vital Signs Reviewed: Yes Diagnostics - Vital Signs Vital Signs Temp Pulse Resp BP Pulse Ox 05/11/19 19:00 19 05/11/19 18:00 85 20 98 05/11/19 17:31 23 05/11/19 17:13 97.2 F 77 16 114/65 97 - Laboratory Lab Results: Lab Results 05/11/19 05/11/19 05/11/19 Range/Units 18:15 18:15 18:15 WBC 5.9 (3.5-10.8) 10^3/uL RBC 3.58 L (3.70-4.87) 10^6 /uL Hgb 11.7 L (12.0-16.0) g/dL Hct 34 L (35-47) % MCV 94 (80-97) fL MCH 33 H (27-31) pg MCHC 35 (31-36) g/dL RDW 15 (10-15) % Plt Count 123 L (150-450) 10^3/uL MPV 8.6 (7.4-10.4) fL Neut % (Auto) 65.1 % Lymph % (Auto) 20.6 % [place] % (Auto) 9.2 % Eos % (Auto) 4.0 % Baso % (Auto) 1.1 % Absolute Neuts (auto) 3.9 (1.5-7.7) 10^3/ul Absolute Lymphs (auto) 1.2 (1.0-4.8) 10^3/ul Absolute Monos (auto) 0.5 (0-0.8) 10^3/ul Absolute Eos (auto) 0.2 (0-0.6) 10^3/ul Absolute Basos (auto) 0.1 (0-0.2) 10^3/ul Absolute Nucleated RBC 0.0 10^3/ul Nucleated RBC % 0.1 INR (Anticoag Therapy) 0.95 (0.82-1.09) Sodium 139 (135-145) mmol/L Potassium 4.2 (3.5-5.0) mmol/L Chloride 103 (101-111) mmol/L Carbon Dioxide 33 H (22-32) mmol/L Anion Gap 3 (2-11) mmol/L BUN 23 (6-24) mg/dL Creatinine 0.48 L (0.51-0.95) mg/dL Est GFR ( Amer) 147.3 (>60) Est GFR (Non-Af Amer) 121.8 (>60) BUN/Creatinine Ratio 47.9 H (8-20) Glucose 109 H (70-100) mg/dL Calcium 9.5 (8.6-10.3) mg/dL Total Bilirubin 0.30 (0.2-1.0) mg/dL AST 28 (13-39) U/L ALT 33 (7-52) U/L Alkaline Phosphatase 64 (34-104) U/L Troponin I 0.29 H* (<0.04) ng/mL Total Protein 6.0 L (6.4-8.9) g/dL Albumin 3.8 (3.2-5.2) g/dL Globulin 2.2 (2-4) g/dL Albumin/Globulin Ratio 1.7 (1-3) Result Diagrams: 05/11/19 18:15 05/11/19 18:15 Lab Statement: Any lab studies that have been ordered have been reviewed, and results considered in the medical decision making process. - EKG EKG Cardiac Rate: NL - 74 bpm EKG Rhythm: Sinus Rhythm Summary of EKG Findings: Sinus rhythm, right bundle branch block, unchanged since 01/25/19, 74bpm Re-Evaluation - Re-Evaluation First Eval Re-Evaluation Time: 19:35 Comment: We discussed plan for admission. Chest Pain Course/Dx - Course Course Of Treatment: Ms. Holland had an NV many years ago and was given nitroglycerin to use. She never had to use it and to the last couple of weeks. She refilled her prescription and has been using it successfully to treat chest pain. She went to Dr. Harden's office today where troponin was obtained and found to be 0.24. An EKG was unchanged. She was called at home when the lab result came back and sent to the emergency department. She does not have chest pain on arrival here and her EKG is again unchanged. A repeat troponin is 0.29 and I spoke with the hospitalist about admission and further workup. - Diagnoses Provider Diagnoses: Unstable angina - Provider Notifications Discussed Care Of Patient With: Christiano Diaz Time Discussed With Above Provider: 19:33 Instructed by Provider To: Other - Dr. Diaz, hospitalist, agrees to admit patient. - Critical Care Time Critical Care Time: 30-74 min Discharge ED - Sign-Out/Discharge Documenting (check all that apply): Patient Departure - admit to hospitalist Patient Received Moderate/Deep Sedation with Procedure: No - Discharge Plan Condition: Stable Disposition: ADMITTED TO [facility] - Billing Disposition and Condition Condition: STABLE Disposition: Admitted to [facility] - Attestation Statements Document Initiated by Amandeep: Yes Documenting Scribe: Jose De Jesus Crawford Provider For Whom Scribe is Documenting (Include Credential): Lon Odonnell MD Scribe Attestation: Jose De Jesus Mac, scribed for Lon Odonnell MD on at 2152. Scribe Documentation Reviewed: Yes Provider Attestation: The documentation as recorded by the amandeep, Jose De Jesus Crawford accurately reflects the service I personally performed and the decisions made by , Lon Odonnell MD Status of Scribe Document: Viewed
[2019-05-11] MEDS ORDERED: Albuterol/Ipratropium NEB.SOL* Albuterol 2.5 MG/Ipratropium 0.5 MG 3 ML INH PRN (20:34)
[2019-05-11] MEDS ORDERED: Nitroglycerin TAB 0.4 MG* 0.4 MG TAB SL PRN (20:34)
[2019-05-11 21:01] LABS: Alcohol < 10 mg/dL (<10)
[2019-05-11] MEDS: Enoxaparin(*) 40 MG/0.4 ML SYR SUBCUT SCH (23:15)
--- NOTE | 2019-05-11 23:25 | HP ---
CC: Dr. Rudolph; Dr. Joshua Harden from Cardiology; Dr. Christiano Diaz* ADMISSION HISTORY AND PHYSICAL: DATE OF ADMISSION: 05/11/19 PRIMARY CARE PROVIDER: Dr. Rudolph. ATTENDING PHYSICIAN: Dr. Christiano Diaz* (dictated by Madan Orellana NP). CHIEF COMPLAINT: Chest pain and abnormal labs. HISTORY OF PRESENT ILLNESS: Ms. Holland is an 89-year-old female patient who was sent to the emergency department by her primary care provider after being told that she had some abnormal lab values. The patient did report to her PCP that she had been having some left-sided chest pain. Troponin level was drawn in the office and was found to be elevated at 0.24. She was taken by [facility] to the ED for evaluation. In the emergency department, the troponin reevaluated and was still elevated at 0.29. The patient had an EKG as well which does have an inverted T-wave in lead 3. Rest of the patient's lab values and vital signs were with no acute changes. Hospitalists were called to evaluate the patient for admission for her chest pain and elevated troponin. PAST MEDICAL HISTORY: Significant for: 1. Coronary artery disease and KS. 2. Aortic valve disease. 3. Hypertension. 4. Hyperlipidemia. 5. Diabetes. 6. Asthma. 7. COPD, oxygen-dependent. 8. Depression. 9. Obstructive sleep apnea. 10. Congestive heart failure. 11. Restless leg syndrome. PAST SURGICAL HISTORY: Significant for: 1. Appendectomy. 2. Cataract excision. 3. Cardiac catheterization and stenting in 1996. 4. TAVR. 5. Tubal ligation and ovarian cyst removal. MEDICATIONS: The patient's home medications include: 1. Magnesium 250 mg p.o. daily. 2. Vitamin D 2000 units p.o. daily. 3. Aspirin 81 mg daily. 4. DuoNeb 1 neb q. 6 hours as needed for shortness of breath. 5. Metoprolol succinate XL 12.5 mg every other day. 6. Vitamin B6 combination tablet 1 tab p.o. daily. 7. Flonase 2 sprays both nares as needed. 8. Lexapro 10 mg p.o. daily. 9. Ropinirole 0.5 mg p.o. at bedtime. 10. Nitroglycerin 0.4 mg sublingual q.5 minutes as needed for chest pain. 11. Torsemide 10 mg p.o. on Sundays and as needed, 2 times weekly. ALLERGIES: The patient has allergies to BENZONATATE which causes altered mental status, DILTIAZEM which causes dizziness, IODINE which causes hives, SIMVASTATIN which causes hives, BACTRIM which causes swelling of the face, lips and throat, and SULFA BASE MEDICATIONS which also cause swelling. FAMILY HISTORY: Father with diabetes. No further family history noted. SOCIAL HISTORY: The patient denies any tobacco abuse now or in the past. She did have recent history of alcohol use disorder which is now resolved. She lives with her daughter and is recently discharged from the hospital and rehab from her previous hospitalization. The patient's healthcare proxy is her daughter, Francy Hood, her number is [phone]. The patient's code status is full code. REVIEW OF SYSTEMS: The patient is stating she feels fatigued, but otherwise she denies any fever, fatigue, or chills. Her chest pain has currently resolved. She is not acutely short of breath. No nausea or vomiting. No abdominal pain. No generalized weakness. She does have some lower extremity edema which is nonpitting, +2. No further constitutional complaints. PHYSICAL EXAMINATION GENERAL: Reveals a well-appearing elderly female, in no acute distress. VITAL SIGNS: Blood pressure 114/65, heart rate 77, respiratory rate 16, O2 saturation 97% on 2 L, temperature 97.2. HEENT: The patient is atraumatic, normocephalic. PERRLA. Nonicteric sclerae. Oral mucosa is moist. Tongue is midline. NECK: Supple, nontender. No JVD noted. No carotid bruits auscultated. LUNGS: Clear bilaterally to auscultation with no wheezing, rhonchi, or rales. CARDIOVASCULAR: S1, S2 are present. She does have a noted murmur, but no gallops or rubs. Rate and rhythm are currently regular. ABDOMEN: Soft, nontender, nondistended. Moderately obese. Positive bowel sounds in all 4 quadrants. : Deferred. MUSCULOSKELETAL: There is no clubbing and no cyanosis. She does have bipedal edema up to the feliz. Shiny skin, rather tight in nature. Nonpitting. Per the patient's report, this is her baseline and is improved from her usual. Gross motor and sensation are otherwise intact. She has full range of motion. NEUROLOGIC: Grossly intact. Alert and oriented x3. PSYCHIATRIC: Cooperative and appropriate. DIAGNOSTIC DATA/LAB DATA: WBCs 5.9, RBCs 3.58, hemoglobin 11.7, hematocrit 34 , and platelets 123. Sodium 139, potassium 4.2, chloride 103, CO2 of 33. BUN 23, creatinine 0.48. GFR 121.8. BUN and creatinine ratio 47.9. Glucose 109. Calcium 9.5. Total bilirubin 0.30, AST 28, ALT 33, alk phos 64. Troponin 0.29. Total protein 6.0, albumin 3.8, globulin 2.2. Albumin and globulin ratio 2.7. INR is 0.95. Serum alcohol level is pending. Imaging: No imaging is currently pending. IMPRESSION: Ms. Holland is an 89-year-old female patient with a history of coronary artery disease, who presents to the emergency department today with reports of 2 weeks of intermittent chest pain and an outpatient elevated troponin. PLAN/RECOMMENDATIONS: The patient will be admitted to telemetry. Diagnoses: 1. Chest pain and elevated troponin. The patient is noted to have small change on her EKG. She does have an inverted T-wave in lead 3 only. This is new. Her chest pain has resolved currently. I did have a discussion with her and her daughter that they had been having conversation with Dr. Harden about prepping for an outpatient stress test. I did reach out to Dr. Valladares who is on- call for Cardiology and does recommend Lexiscan stress test in the morning. She will be n.p.o. after midnight. We will continue to trend her troponins right now. Her troponin is 0.29. If her troponin continues to stay flat or trend down after her next level, she will be cleared for her stress test in the morning. We will continue her daily baby aspirin. Her metoprolol is currently ordered for every other day. Her next metoprolol would be due on Wednesday; this will be continued. Nitroglycerin has also been ordered as needed for chest pain. Consultation has also been placed for Cardiology as well as a followup echocardiogram. Her last echo in January 2019 showed ejection fraction of 60% to 65%, and noted her transcatheter aortic valve replacement, we will repeat her echo given that she is now currently having chest pain. 2. History of restless leg syndrome. The patient will be continued on her Requip at bedtime and also p.r.n. Ativan for refractory restless leg syndrome. This has been a serious ongoing problem for this patient for some time which was also noted on previous admissions. 3. History of chronic obstructive pulmonary disease, oxygen-dependent. The patient wears 2 L of oxygen for sleep and intermittently throughout the day. We have also ordered DuoNeb as needed. She is not currently in any exacerbation. 4. For DVT prophylaxis, the patient will be placed on Lovenox q.24 hours. 5. Diet: She can have a heart-healthy diet, caffeine-okay, but then be n.p.o. after midnight. 6. Activity as tolerated with assistance. The rest of the patient's course will be determined by further diagnostics, laboratories, and any other inputs from other providers as warranted during this admission. TIME SPENT: Sixty minutes on [id number] with the patient and developing admission, plan of care. MADAN ORELLANA NP [id number]/[facility] #: [id number] KOURTNEY
[2019-05-12] MEDS: Ropinirole TAB* 0.5 MG TAB PO SCH ×2 (01:27→20:28)
[2019-05-12] MEDS: LORazepam TAB(*) 0.5 MG PO PRN ×2 (04:55→20:28)
[2019-05-12 06:07] LABS: ABS Eosinophils 0.2 10^3/ul (0-0.6); ABS Lymphocytes 0.9 10^3/ul (1.0-4.8); ABS Monocytes 0.4 10^3/ul (0-0.8); ABS Neutrophils 3.4 10^3/ul (1.5-7.7); Eosinophil % 3.8 %; Hematocrit 33 % (35-47); Hemoglobin 11.2 g/dL (12.0-16.0); Mean Corpuscular HGB Conc 34 g/dL (31-36); Mean Corpuscular Hemoglobin 32 pg (27-31); Mean Corpuscular Volume 95 fL (80-97); Mean Platelet Volume 8.8 fL (7.4-10.4); Platelet Count 105 10^3/uL (150-450); Red Blood Count 3.53 10^6 /uL (3.70-4.87); Red Cell Distribution Width 15 % (10-15); White Blood Count 4.9 10^3/uL (3.5-10.8)
[2019-05-12 06:24] LABS: BUN/Creatinine Ratio 41.7 (8-20); Calcium 9.1 mg/dL (8.6-10.3); EGFR African American 147.3 (>60); EGFR Non-African American 121.8 (>60); Potassium 4.1 mmol/L (3.5-5.0)
[2019-05-12] MEDS: Escitalopram * 10 MG TAB PO SCH (09:35)
[2019-05-12] MEDS: Aspirin EC TAB* 81 MG TAB.EC PO SCH (09:35)
[2019-05-12] MEDS: Cholecalciferol TAB* 1000 UNITS PO SCH (09:36)
[2019-05-12] MEDS ORDERED: LORazepam INJ* 2 MG/ML 1 ML VIAL IV PUSH ONE (09:55)
[2019-05-12] MEDS ORDERED: Lorazepam PYXIS KEY PRN (09:55)
[2019-05-12] MEDS ORDERED: Nitroglycerin 0.4 MG/HR PATCH* (10 MG) TRANSDERM SCH (11:17)
[2019-05-12] MEDS: Nitroglycerin 0.4 MG/HR PATCH* (10 MG) TRANSDERM SCH (12:13)
--- NOTE | 2019-05-12 14:07 | CONS ---
CC: Dr. Rudolph; Dr. Joshua Harden CARDIOLOGY CONSULTATION REPORT: DATE OF CONSULT: 05/12/19 REFERRAL PHYSICIANS: Dr. Christiano Diza and Ms. Radha Delgado. REASON FOR CARDIOLOGY CONSULTATION: Non-Q-wave ND. HISTORY OF PRESENT ILLNESS: Ms. Holland is a pleasant 89-year-old woman with a history of coronary artery disease and TAVR 2 years ago, who has been noticing several weeks of chest pain. Of note, she is accompanied by her daughter Ms. Francy Hood. It sounds like the patient at least in the past week had 4 to 5 episodes of chest pain, lasting from 4 to 10 minutes. They would be over her left anterior chest with some radiation to her left arm, she would take a nitroglycerin sublingual and that would help it. Yesterday, she had an outpatient troponin checked, which was elevated and so was referred to the emergency room for evaluation. Currently, she is having no chest pain. PAST MEDICAL HISTORY: Includes coronary artery disease. She states she had an ND in 1996 and apparently had a stent. She has a history of aortic valve disease and had TAVR 2 years ago at [facility]. Last cardiac catheterization done pre-TAVR on 01/14/17 states left main widely patent, proximal LAD 25% lesion, circumflex nondominant with OM5 having a 55% to 60% narrowing in the small caliber vessel, RCA which was dominant vessel with a 50% to 55% proximal narrowing, PDA which is a less than 2-mm vessel with a 60% mid obstruction. Other past medical history includes hypertension; hyperlipidemia; diabetes; asthma; COPD, O2 dependent; depression; anxiety; obstructive sleep apnea and she is not taking her therapy for that; restless legs syndrome, which the patient notes is her main issue. PAST SURGICAL HISTORY: Includes appendectomy, cataract excision, PCI in 1996 presumably bare-metal stent, TAVR 2017, tubal ligation, and ovarian cyst removal. Of note, the patient follows with my partner Dr. Joshua Harden. OUTPATIENT MEDICATIONS: 1. Magnesium 250 mg once a day. 2. Vitamin D 2000 units once a day. 3. Aspirin 81 mg once a day. 4. DuoNeb p.r.n. 5. Metoprolol XL 12.5 mg p.o. every other day. 6. Vitamin B6 combination 1 tab once a day. 7. Flonase 2 sprays both nares as needed. 8. Lexapro 10 mg once a day. 9. Ropinirole 0.5 mg p.o. q.h.s. 10. Nitroglycerin sublingual p.r.n. 11. Torsemide 10 mg on Sundays and p.r.n. ALLERGIES TO MEDICATIONS: BENZONATATE which causes altered mental status; DILTIAZEM which causes dizziness; IODINE which causes hives; SIMVASTATIN which causes hives; BACTRIM which causes swelling of the face, lips and throat; and SULFA BASE MEDICATIONS which also cause swelling. FAMILY HISTORY: Significant for cardiac disease, stroke, and diabetes. No family history of cancer. SOCIAL HISTORY: The patient is and lives alone. She smoked for 42 years 1 pack per day and quit 30 years ago. She states she was previously drinking quite a bit of alcohol and is an alcoholic but has not drank any alcohol for 3 months. She does not use illicit drugs. She drinks 2 to 3 cups of coffee per day. 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 She does not exercise regularly but does try to walk a little in her house. She is originally from [facility] and is lived in the [place] for 63 years. REVIEW OF SYSTEMS: She denies personal history of stroke, cancer, vomiting of blood, coughing up blood, bright red blood per rectum, bleeding stomach ulcers. She does have a history of anemia, not requiring transfusion but does receive iron therapy. She has a history of kidney stones and gallstones. She has a history of asthma, emphysema. She has a history of pneumonia at the age of 20, not requiring hospitalization. She denies tuberculosis. She has a history of sleep apnea and is not compliant with positive pressure ventilation. She uses 2 L of nasal cannula oxygen chronically. She has a history of diabetes. She has a history of hypertension. She has a history of ND in 1996 with presumably BMS PCI at that time, TAVR 2 years ago at [facility]. She denies cardiac murmurs history. She denies palpitations. She has a history of anxiety and depression. She denies seizures, Parkinson's disease, myasthenia gravis, lupus, psoriasis, thyroid disorders, liver disorders, kidney disorders, claudication symptoms, pulmonary emboli, deep venous thrombosis, or peripheral arterial disease. She has a history of peripheral edema. She denies heartburn. She has a history of restless legs syndrome which she notes is her main medical concern. PHYSICAL EXAM: Height 4 feet 8 inches, weight 155 pounds, temperature 97.3 degrees Fahrenheit, pulse 92, respiratory rate 20, blood pressure 120/56. On general exam, she is a pleasant lady in no acute distress at rest. HEENT shows the cranium is normocephalic and atraumatic. She has dry mucosal membranes. Neck veins are not distended. There are no carotid bruits. Visible skin warm and perfused. Affect appropriate, she appears oriented. Mild kyphoscoliosis on back exam. Lungs are clear to auscultation. No wheezes. No rales. Cardiac Exam: S1, S2. Regular rate. Soft systolic murmur heard, no radiation. There is no rub, no gallop. PMI is nondisplaced. Abdomen: Soft, nondistended, and appears benign. Extremities: With 1+ peripheral edema with venous stasis. Pulses appear grossly intact. DIAGNOSTIC STUDIES/LAB DATA: A 12-lead EKG reviewed 05/11/19 at 1727, which shows sinus rhythm with left atrial enlargement, likely right bundle-branch block. Telemetry strip reviewed, which did not show convincing VT but rather sinus rhythm with a short run of rate related bundle-branch block on 05/12/19 at 7 a.m. White blood cell count 4.9; hematocrit 33; platelet count 105, had been 123 on admission. INR 0.95. Sodium 138, potassium 4.1, chloride 102, bicarbonate 34, BUN 20, creatinine 0.48. Troponin initially was 0.29 followed by 0.30 followed by 0.20. IMPRESSION: Ms. Holland is a pleasant 89-year-old woman with known history of transcatheter aortic valve replacement 2 years ago as well as myocardial infarction in 1996, percutaneous coronary intervention at that time with last cardiac catheterization as above demonstrating moderate RCA coronary artery disease 2 years ago as well as branch coronary artery disease, now admitted with a non-Q-wave myocardial infarction after having crescendo anginal symptoms. She is pain free at this time. We have recommended her for further cardiovascular risk stratification with which she is in agreement. RECOMMENDATIONS: 1. The patient will continue aspirin, low-dose beta-arnulfo presumably due to her cardiac conduction disorder but if her heart rate goes up, could increase beta- arnulfo while watching for precipitation of bradyarrhythmias. The patient is reported allergic to STATIN. 2. Check echocardiogram regarding TAVR and LV function. 3. We will recommend adding nitro paste 0.4 mg to chest wall q.a.m. to q.h.s. 4. Plan for cardiac chemical nuclear stress test in several days when she has been stabilized. 5. The patient should continue to follow up with my partner, Dr. Harden, (the patient's sweatband cutting machine operator) after discharge. Thank you for this kind cardiac consultation opportunity. Please do not hesitate to contact me if you have any questions or concerns regarding the patient's cardiovascular consultative care. [id number]/[facility] #: [id number] KOURTNEY
--- NOTE | 2019-05-12 15:14 | ECHO ---
*[facility]* [place] [address] Fax #: [phone] Transthoracic Echocardiogram Patient: Keli Holland : 1930 Study Date: 05/12/2019 Age: 89 Gender: F HR: Height: 56 in /142.2 cm BSA: 1.59 m^2 Weight: 154.7 lb /70.3 kg BMI: 34.8 kg/m^2 *Premium Note Interest Calculator Clerk: * Alma Rivas [facility] *Referring Physician: * Radha Delgado *Reading Physician: * Oj Valladares MD Indications: Chest Pain, unspecified. History: Coronary artery disease. Congestive heart failure. Chronic obstructive pulmonary disease. PMH: Myocardial infarction. Functional status: Not following treatment plan for sleep apnea. Risk factors: Former tobacco use. Hypertension. Diabetes mellitus. Hyperlipidemia. Labs, prior tests, procedures, and surgery: Transvascular aortic valve replacement. There was a stenosis which was treated with a stent. Conclusions Summary: - Left ventricle: The cavity size is normal. Wall thickness is mildly to moderately increased. Systolic function is normal. The estimated ejection fraction is 60-65%. Wall motion is normal; there are no regional wall motion abnormalities. - Left atrium: The atrium is severely dilated. - Aortic valve: Normally functioning bioprosthetic aortic valve replacement. - Mitral valve: There is mild to moderate regurgitation. - Tricuspid valve: There is mild-moderate regurgitation. - Pulmonary arteries: Systolic pressure is severely increased. - Since the prior echocardiogram completed 01/26/19, there is no significant change. Study data: Transthoracic echocardiogram. Procedure: Transthoracic echocardiography was performed. Image quality was fair. Complete 2D, spectral Doppler, and color flow Doppler. Location: Bedside. Patient status: Inpatient. Patient room number: 441-2. Rhythm: Normal sinus rhythm. Findings Left ventricle: The cavity size is normal. Wall thickness is mildly to moderately increased. Systolic function is normal. The estimated ejection fraction is 60-65%. Wall motion is normal; there are no regional wall motion abnormalities. There is no consistent Doppler evidence of clinically significant diastolic dysfunction. Right ventricle: The cavity size is normal. Systolic function is low normal. Left atrium: The atrium is severely dilated. Right atrium: The atrium is normal in size. Mitral valve: The leaflets are mildly thickened. There is mild to moderate regurgitation. Aortic valve: Which appears to be normally functioning. The leaflets are normal thickness. There is no significant regurgitation. Tricuspid valve: The leaflets are normal thickness. There is no evidence of stenosis. There is mild-moderate regurgitation. Pulmonic valve: The leaflets are normal thickness. There is no evidence of stenosis. There is no regurgitation. Aorta: Aortic root: The aortic root is appears normal. Ascending aorta: The ascending aorta is appears normal. Aortic arch: The aortic arch is poorly visualized. Pericardium: A prominent pericardial fat pad is present. There is no significant pericardial effusion. Pulmonary arteries: The main pulmonary artery is normal-sized. Systolic pressure is severely increased. Systemic veins: Inferior vena cava: The vessel is dilated. There is (>= 50%) respiratory change in the IVC dimension. Measurements Left ventricle Value Ref Right atrium continued Value Ref DEVIN, LAX 4.0 cm 3.8 - 5.2 SI dim, ES, A4C 4.6 cm 3.4 - 5.3 ESD, LAX 3.3 cm 2.2 - 3.5 Estimated RAP 8 mm Hg --------- FS, LAX (L) 17 % 27 - 45 PW, ED, LAX (H) 1.3 cm 0.6 - 0.9 Aortic valve Value Ref FS (L) 17 % 27 - 45 Raghavendra diam, ED 1.8 cm --------- PW, ED (H) 1.3 cm 0.6 - 0.9 Peak v, S 3.2 m/sec --------- E', lat raghavendra, TDI (L) 5.7 cm/sec >=10.0 VTI, S 66.0 cm -- ------- E/e', lat raghavendra, 20 Mean grad, S 22.0 mm Hg ----- ---- TDI Peak grad, S 40.0 mm Hg --------- E', med raghavendra, TDI (L) 3.8 cm/sec >=7.0 SHAJI, VTI 0.91 cm^2 -- ------- E/e', med raghavendra, 31 SHAJI, Vmax 0.85 cm^2 ----- ---- TDI E', avg, TDI 4.8 cm/sec Mitral valve Value Ref E/e', avg, TDI (H) 24 <=14 Peak E 1.16 m/sec -- ------- Peak A 0.89 m/sec --------- LVOT Value Ref Decel time 194 ms --------- Diam, S 2.00 cm Peak grad, D 5.4 mm Hg --------- Area 3.1 cm^2 Peak E/A ratio 1.3 --------- Peak raymundo, S 0.87 m/sec Mean grad, S 2 mm Hg Pulmonic valve Value Ref SV 56 ml Peak v, S 1.24 m/sec --------- SV/bsa 35 ml/m^2 Peak grad, S 6.0 mm Hg --------- Ventricular septum Value Ref Tricuspid valve Value Ref IVS, ED (H) 1.3 cm 0.6 - 0.9 TR peak v (H) 3.6 m/sec <=2.8 Peak RV-RA grad, S 52 mm Hg --------- Right ventricle Value Ref DEVIN, LAX 3.9 cm Aortic root Value Ref DEVIN minor ax, A4C (H) 3.8 cm 1.9 - 3.5 Root diam 2.2 cm <3.8 mid Pressure, S 60 mm Hg Ascending aorta Value Ref AAo AP diam, S 3.2 cm --------- Left atrium Value Ref AP dim, ES (H) 4.70 cm 2.70 - Pulmonary artery Value Ref 3.80 Pressure, S 54.0 mm Hg --------- ML dim, A4C 4.5 cm SI dim, A4C 5.3 cm Inferior vena cava Value Ref Vol/bsa, ES, 1-p (H) 51 ml/m^2 11 - 40 Diam 2.7 cm --------- A4C Vol/bsa, ES, A/L (H) 51 ml/m^2 16 - 34 Right atrium Value Ref SI dim, ES 4.6 cm 3.4 - 5.3 ML dim, ES, A4C 4.1 cm 2.6 - 4.4 Legend: (L) and (H) mohit values outside specified reference range. Prepared and electronically signed by Oj Valladares MD 05/12/2019 15:13
--- NOTE | 2019-05-12 17:57 | PN ---
Subjective Date of Service: 05/12/19 Interval History: Patient seen and examined. Overnight events noted. Patient with runs of VT early this AM, trop trending down. Per cardiology, holding lexiscan. Patient denies SOB, no chest pain now. Still complaining of restless legs. No further complaints. Objective Active Medications: Albuterol/Ipratropium (Duoneb (Albuterol 2.5 Mg/Ipratropium 0.5 Mg)) 1 neb INH Q6H PRN PRN Reason: SHORTNESS OF BREATH Aspirin (Aspirin Ec Tab*) 81 mg PO DAILY [facility] Last Admin: 05/12/19 09:35 Dose: 81 mg Cholecalciferol (Vitamin D Tab*) 2,000 units PO DAILY [facility] Last Admin: 05/12/19 09:36 Dose: 2,000 units Enoxaparin Sodium (Lovenox(*)) 40 mg SUBCUT BEDTIME [facility] Last Admin: 05/11/19 23:15 Dose: 40 mg Escitalopram Oxalate (Lexapro *) 10 mg PO DAILY [facility] Last Admin: 05/12/19 09:35 Dose: 10 mg Lorazepam (Ativan Tab(*)) 0.5 mg PO BEDTIME PRN PRN Reason: restless legs Last Admin: 05/12/19 04:55 Dose: 0.5 mg Metoprolol Succinate (Toprol Xl Tab*) 12.5 mg PO EVERY OTHER DAY [facility] Miscellaneous (Ativan Pyxis Ly) 1 ea N/A .ATIVAN IV LY PRN PRN Reason: PYXIS LY Nitroglycerin (Nitroglycerin 10 Mg Patch*) 1 patch TRANSDERM 0800 [facility] Last Admin: 05/12/19 12:13 Dose: 1 patch Pharmacy Profile Note (Nitro Patch/Oint Remove*) 1 note PATCH OFF 1999 [facility] Ropinirole HCl (Requip Tab*) 0.5 mg PO BEDTIME [facility] Last Admin: 05/12/19 01:27 Dose: Not Given Torsemide (Torsemide) 10 mg PO SuTh PRN PRN Reason: EDEMA Vital Signs - 8 hr 05/12/19 05/12/19 05/12/19 10:13 11:15 11:33 Temperature 98.6 F Pulse Rate 81 Respiratory 20 20 20 Rate Blood Pressure 123/59 (mmHg) O2 Sat by Pulse 95 Oximetry 09/06/19 15:15 Temperature 98.3 F Pulse Rate 79 Respiratory 18 Rate Blood Pressure 128/54 (mmHg) O2 Sat by Pulse Oximetry Oxygen Devices in Use Now: Nasal Cannula Appearance: alert, NAD Eyes: PERRLA Ears/Nose/Mouth/Throat: NL Teeth, Lips, Gums Neck: NL Appearance and Movements; NL JVP, Trachea Midline Respiratory: Symmetrical Chest Expansion and Respiratory Effort, Clear to Auscultation, - - diminished bases Cardiovascular: - - bipedal edema, murmur noted Abdominal: No Hepatosplenomegaly Extremities: No Clubbing, Cyanosis Skin: No Rash or Ulcers Neurological: Alert and Oriented x 3 Nutrition: Taking PO's Result Diagrams: 05/12/19 05:26 05/12/19 05:26 Additional Lab and Data: Lab Results 05/11/19 05/11/19 05/11/19 Range/Units 18:15 18:15 18:15 WBC 5.9 (3.5-10.8) 10^3/uL RBC 3.58 L (3.70-4.87) 10^6 /uL Hgb 11.7 L (12.0-16.0) g/dL Hct 34 L (35-47) % MCV 94 (80-97) fL MCH 33 H (27-31) pg MCHC 35 (31-36) g/dL RDW 15 (10-15) % Plt Count 123 L (150-450) 10^3/uL MPV 8.6 (7.4-10.4) fL Neut % (Auto) 65.1 % Lymph % (Auto) 20.6 % [place] % (Auto) 9.2 % Eos % (Auto) 4.0 % Baso % (Auto) 1.1 % Absolute Neuts (auto) 3.9 (1.5-7.7) 10^3/ul Absolute Lymphs (auto) 1.2 (1.0-4.8) 10^3/ul Absolute Monos (auto) 0.5 (0-0.8) 10^3/ul Absolute Eos (auto) 0.2 (0-0.6) 10^3/ul Absolute Basos (auto) 0.1 (0-0.2) 10^3/ul Absolute Nucleated RBC 0.0 10^3/ul Nucleated RBC % 0.1 INR (Anticoag Therapy) 0.95 (0.82-1.09) Sodium 139 (135-145) mmol/L Potassium 4.2 (3.5-5.0) mmol/L Chloride 103 (101-111) mmol/L Carbon Dioxide 33 H (22-32) mmol/L Anion Gap 3 (2-11) mmol/L BUN 23 (6-24) mg/dL Creatinine 0.48 L (0.51-0.95) mg/dL Est GFR ( Amer) 147.3 (>60) Est GFR (Non-Af Amer) 121.8 (>60) BUN/Creatinine Ratio 47.9 H (8-20) Glucose 109 H (70-100) mg/dL Calcium 9.5 (8.6-10.3) mg/dL Total Bilirubin 0.30 (0.2-1.0) mg/dL AST 28 (13-39) U/L ALT 33 (7-52) U/L Alkaline Phosphatase 64 (34-104) U/L Troponin I 0.29 H* (<0.04) ng/mL Total Protein 6.0 L (6.4-8.9) g/dL Albumin 3.8 (3.2-5.2) g/dL Globulin 2.2 (2-4) g/dL Albumin/Globulin Ratio 1.7 (1-3) Diagnostic Imaging: *[facility]* [place] [address] Fax #: [phone] Transthoracic Echocardiogram Patient: Keli Holland : 1930 Study Date: 05/12/2019 Age: 89 Gender: F HR: Height: 56 in /142.2 cm BSA: 1.59 m^2 Weight: 154.7 lb /70.3 kg BMI: 34.8 kg/m^2 *Rn Rehab: * Alma Rivas [facility] *Referring Physician: * Radha Delgado *Reading Physician: * Oj Valladares MD Indications: Chest Pain, unspecified. History: Coronary artery disease. Congestive heart failure. Chronic obstructive pulmonary disease. PMH: Myocardial infarction. Functional status: Not following treatment plan for sleep apnea. Risk factors: Former tobacco use. Hypertension. Diabetes mellitus. Hyperlipidemia. Labs, prior tests, procedures, and surgery: Transvascular aortic valve replacement. There was a stenosis which was treated with a stent. Conclusions Summary: - Left ventricle: The cavity size is normal. Wall thickness is mildly to moderately increased. Systolic function is normal. The estimated ejection fraction is 60-65%. Wall motion is normal; there are no regional wall motion abnormalities. - Left atrium: The atrium is severely dilated. - Aortic valve: Normally functioning bioprosthetic aortic valve replacement. - Mitral valve: There is mild to moderate regurgitation. - Tricuspid valve: There is mild-moderate regurgitation. - Pulmonary arteries: Systolic pressure is severely increased. - Since the prior echocardiogram completed 01/26/19, there is no significant change. Assess/Plan/Problems-Billing Assessment: This is an 89 year old female with hx CAD, , RLS that presented to the ED after seeing her PCP and complaining of left sided chest pain, also found to have elevated troponin when checked on outpatient labs. - Patient Problems (1) Elevated troponin Code(s): R74.8 - ABNORMAL LEVELS OF OTHER SERUM ENZYMES SNOMED Code(s): 992097247 Comment: - NSTEMI with Peak trop 0.30, no acute ST segment changes, one inverted T wave in lead III only. Currently chest pain free - Short non-sustained VT this am, asymptomatic - Cardiology consult appreciated, lexiscan held for today and rescheduled for wednesday - Plan for ECHO today, nitropatch for unstable angina, may consider amlodipine if she cannot tolerate nitro patch - Continue to monitor on tele through the weekend and eval lexiscan on wednesday (2) Aortic stenosis Code(s): I35.0 - NONRHEUMATIC AORTIC (VALVE) STENOSIS SNOMED Code(s): 71858737 Comment: - s/p TAVR, ECHO to eval, as noted above, valve functioning, EF 60-65% (3) CAD (coronary artery disease) Code(s): I25.10 - ATHSCL HEART DISEASE OF [place] CORONARY ARTERY W/O ANG PCTRS SNOMED Code(s): 89987281 Comment: - Hx of [place] and PCI with angina and elevated troponins on this admission - Review lexiscan on wednesday, appreciate any fruther recs from cardiology after stress - continue BB every other day, torsemide, ntg and ASA (4) COPD (chronic obstructive pulmonary disease) Code(s): J44.9 - CHRONIC OBSTRUCTIVE PULMONARY DISEASE, UNSPECIFIED SNOMED Code(s): 31239167 Comment: - On O2 at night and PRN at home of 2L - Not in exacerbation (5) Diabetes Code(s): E11.9 - TYPE 2 DIABETES MELLITUS WITHOUT COMPLICATIONS SNOMED Code(s) : 16985996 Comment: - diet controlled (6) Restless leg syndrome Comment: - Continue requip with low dose ativan at night only PRN (7) DVT prophylaxis Code(s): Z29.9 - ENCOUNTER FOR PROPHYLACTIC MEASURES, UNSPECIFIED SNOMED Code( s): 855370301 Comment: - Lovenox subq (8) Full code status Code(s): Z78.9 - OTHER SPECIFIED HEALTH STATUS SNOMED Code(s): 591778933 Status and Disposition: Inpatient for NSTEMI pending stress wednesday.
[2019-05-12] MEDS: Enoxaparin(*) 40 MG/0.4 ML SYR SUBCUT SCH (20:40)
[2019-05-12] MEDS: Nitro Patch/OINT Remove PATCH OFF SCH (20:55)
[2019-05-13] MEDS: Saline NASAL SPRAY 0.65%* BTL BOTH NARES PRN ×2 (07:13→19:43)
[2019-05-13] MEDS: Nitroglycerin 0.4 MG/HR PATCH* (10 MG) TRANSDERM SCH (08:00)
[2019-05-13] MEDS: Aspirin EC TAB* 81 MG TAB.EC PO SCH (08:00)
[2019-05-13] MEDS: Escitalopram * 10 MG TAB PO SCH (08:00)
[2019-05-13] MEDS: Cholecalciferol TAB* 1000 UNITS PO SCH (08:01)
[2019-05-13] MEDS: LORazepam TAB(*) 0.5 MG PO PRN ×2 (08:01→21:16)
[2019-05-13] MEDS ORDERED: Metoprolol Succinate XL TAB* 25 MG PO SCH (09:00)
[2019-05-13] MEDS: Ropinirole TAB* 0.5 MG TAB PO SCH ×2 (11:21→21:17)
--- NOTE | 2019-05-13 17:03 | PN ---
Subjective Date of Service: 05/13/19 Interval History: Patient is very bothered by restless legs, she states she takes requip twice daily at home. Patient denies CP, SOB, dizziness, F/C, N/V, abdominal pain, diarrhea, or dysuria. Family History: Unchanged from Admission Social History: Unchanged from Admission Past Medical History: Unchanged from Admission Objective Active Medications: Albuterol/Ipratropium (Duoneb (Albuterol 2.5 Mg/Ipratropium 0.5 Mg)) 1 neb INH Q6H PRN PRN Reason: SHORTNESS OF BREATH Aspirin (Aspirin Ec Tab*) 81 mg PO DAILY [facility] Last Admin: 05/13/19 08:00 Dose: 81 mg Cholecalciferol (Vitamin D Tab*) 2,000 units PO DAILY [facility] Last Admin: 05/13/19 08:01 Dose: 2,000 units Enoxaparin Sodium (Lovenox(*)) 40 mg SUBCUT BEDTIME [facility] Last Admin: 05/12/19 20:40 Dose: 40 mg Escitalopram Oxalate (Lexapro *) 10 mg PO DAILY [facility] Last Admin: 05/13/19 08:00 Dose: 10 mg Lorazepam (Ativan Tab(*)) 0.5 mg PO BEDTIME PRN PRN Reason: restless legs Last Admin: 05/13/19 08:01 Dose: 0.5 mg Metoprolol Succinate (Toprol Xl Tab*) 12.5 mg PO EVERY OTHER DAY [facility] Last Admin: 05/13/19 08:00 Dose: 12.5 mg Miscellaneous (Ativan Pyxis Ly) 1 ea N/A .ATIVAN IV LY PRN PRN Reason: PYXIS LY Nitroglycerin (Nitroglycerin 10 Mg Patch*) 1 patch TRANSDERM 08 [facility] Last Admin: 05/13/19 08:00 Dose: 1 patch Pharmacy Profile Note (Nitro Patch/Oint Remove*) 1 note PATCH OFF 1999 [facility] Last Admin: 05/12/19 20:55 Dose: 1 note Ropinirole HCl (Requip Tab*) 0.5 mg PO BID [facility] Last Admin: 05/13/19 11:21 Dose: 0.5 mg Sodium Chloride (Sodium Chloride 0.65% Nasal Maple*) 1 spray BOTH NARES Q4H PRN PRN Reason: NASAL CONGESTION Last Admin: 05/13/19 07:13 Dose: 1 spray Torsemide (Torsemide) 10 mg PO SuTh PRN PRN Reason: EDEMA Vital Signs - 8 hr 05/13/19 05/13/19 11:21 11:50 Temperature 97.3 F Pulse Rate 80 Respiratory 18 18 Rate Blood Pressure 115/56 (mmHg) O2 Sat by Pulse 96 Oximetry Oxygen Devices in Use Now: Nasal Cannula Appearance: Patient is an 89yo female who appears stated age and is sitting in the bed in NAD. Eyes: No Scleral Icterus, PERRLA Ears/Nose/Mouth/Throat: NL Teeth, Lips, Gums, Clear Oropharnyx, Mucous Membranes Moist Neck: NL Appearance and Movements; NL JVP, Trachea Midline Respiratory: Symmetrical Chest Expansion and Respiratory Effort, Clear to Auscultation Cardiovascular: RRR, No Edema, - - Grade 3/6 [place]. Abdominal: NL Sounds; No Tenderness; No Distention, No Hepatosplenomegaly Lymphatic: No Cervical Adenopathy Extremities: No Edema, No Clubbing, Cyanosis Skin: No Rash or Ulcers, No Nodules or Sclerosis Neurological: Alert and Oriented x 3, NL Sensation, NL Muscle Strength and Tone Result Diagrams: 05/12/19 05:26 05/12/19 05:26 Additional Lab and Data: Lab Results 05/11/19 05/11/19 05/11/19 Range/Units 18:15 18:15 18:15 WBC 5.9 (3.5-10.8) 10^3/uL RBC 3.58 L (3.70-4.87) 10^6 /uL Hgb 11.7 L (12.0-16.0) g/dL Hct 34 L (35-47) % MCV 94 (80-97) fL MCH 33 H (27-31) pg MCHC 35 (31-36) g/dL RDW 15 (10-15) % Plt Count 123 L (150-450) 10^3/uL MPV 8.6 (7.4-10.4) fL Neut % (Auto) 65.1 % Lymph % (Auto) 20.6 % Bent % (Auto) 9.2 % Eos % (Auto) 4.0 % Baso % (Auto) 1.1 % Absolute Neuts (auto) 3.9 (1.5-7.7) 10^3/ul Absolute Lymphs (auto) 1.2 (1.0-4.8) 10^3/ul Absolute Monos (auto) 0.5 (0-0.8) 10^3/ul Absolute Eos (auto) 0.2 (0-0.6) 10^3/ul Absolute Basos (auto) 0.1 (0-0.2) 10^3/ul Absolute Nucleated RBC 0.0 10^3/ul Nucleated RBC % 0.1 INR (Anticoag Therapy) 0.95 (0.82-1.09) Sodium 139 (135-145) mmol/L Potassium 4.2 (3.5-5.0) mmol/L Chloride 103 (101-111) mmol/L Carbon Dioxide 33 H (22-32) mmol/L Anion Gap 3 (2-11) mmol/L BUN 23 (6-24) mg/dL Creatinine 0.48 L (0.51-0.95) mg/dL Est GFR ( Amer) 147.3 (>60) Est GFR (Non-Af Amer) 121.8 (>60) BUN/Creatinine Ratio 47.9 H (8-20) Glucose 109 H (70-100) mg/dL Calcium 9.5 (8.6-10.3) mg/dL Total Bilirubin 0.30 (0.2-1.0) mg/dL AST 28 (13-39) U/L ALT 33 (7-52) U/L Alkaline Phosphatase 64 (34-104) U/L Troponin I 0.29 H* (<0.04) ng/mL Total Protein 6.0 L (6.4-8.9) g/dL Albumin 3.8 (3.2-5.2) g/dL Globulin 2.2 (2-4) g/dL Albumin/Globulin Ratio 1.7 (1-3) Diagnostic Imaging: *[facility]* [place] [address] Fax #: [phone] Transthoracic Echocardiogram Patient: Keli Holland : 1930 Study Date: 05/12/2019 Age: 89 Gender: F HR: Height: 56 in /142.2 cm BSA: 1.59 m^2 Weight: 154.7 lb /70.3 kg BMI: 34.8 kg/m^2 *Crowd Controller: * Alma Rivas [facility] *Referring Physician: Radha Cohen *Reading Physician: * Oj Valladares MD Indications: Chest Pain, unspecified. History: Coronary artery disease. Congestive heart failure. Chronic obstructive pulmonary disease. PMH: Myocardial infarction. Functional status: Not following treatment plan for sleep apnea. Risk factors: Former tobacco use. Hypertension. Diabetes mellitus. Hyperlipidemia. Labs, prior tests, procedures, and surgery: Transvascular aortic valve replacement. There was a stenosis which was treated with a stent. Conclusions Summary: - Left ventricle: The cavity size is normal. Wall thickness is mildly to moderately increased. Systolic function is normal. The estimated ejection fraction is 60-65%. Wall motion is normal; there are no regional wall motion abnormalities. - Left atrium: The atrium is severely dilated. - Aortic valve: Normally functioning bioprosthetic aortic valve replacement. - Mitral valve: There is mild to moderate regurgitation. - Tricuspid valve: There is mild-moderate regurgitation. - Pulmonary arteries: Systolic pressure is severely increased. - Since the prior echocardiogram completed 01/26/19, there is no significant change. Assess/Plan/Problems-Billing Assessment: This is an 89 year old female with hx CAD, , RLS that presented to the ED after seeing her PCP and complaining of left sided chest pain, also found to have elevated troponin when checked on outpatient labs. - Patient Problems (1) Elevated troponin Current Visit: Yes Status: Acute Code(s): R74.8 - ABNORMAL LEVELS OF OTHER SERUM ENZYMES SNOMED Code(s): 114359221 Comment: - NSTEMI with Peak trop 0.30, no acute ST segment changes, one inverted T wave in lead III only. Currently chest pain free - Short non-sustained VT on 05/13, asymptomatic - Cardiology consult appreciated, lexiscan held and rescheduled for wednesday - Plan for ECHO today, nitropatch for unstable angina, may consider amlodipine if she cannot tolerate nitro patch - Continue to monitor on tele through the and eval lexiscan on wednesday (2) Aortic stenosis Current Visit: No Status: Acute Code(s): I35.0 - NONRHEUMATIC AORTIC (VALVE ) STENOSIS SNOMED Code(s): 82660966 Comment: - S/P TAVR, ECHO to eval, as noted above, valve functioning, EF 60-65% (3) CAD (coronary artery disease) Current Visit: No Status: Acute Code(s): I25.10 - ATHSCL HEART DISEASE OF [place] CORONARY ARTERY W/O ANG PCTRS SNOMED Code(s): 10530874 Comment: - Hx of [place] and PCI with angina and elevated troponins on this admission - Review lexiscan on wednesday, appreciate any fruther recs from cardiology after stress - continue BB every other day, torsemide, ntg and ASA (4) COPD (chronic obstructive pulmonary disease) Current Visit: No Status: Acute Code(s): J44.9 - CHRONIC OBSTRUCTIVE PULMONARY DISEASE, UNSPECIFIED SNOMED Code(s): 34263012 Comment: - On O2 at night and PRN at home of 2L - Not in exacerbation (5) Diabetes Current Visit: No Status: Acute Code(s): E11.9 - TYPE 2 DIABETES MELLITUS WITHOUT COMPLICATIONS SNOMED Code(s): 92882831 Comment: - diet controlled (6) HTN (hypertension) Current Visit: No Status: Acute Code(s): I10 - ESSENTIAL (PRIMARY) HYPERTENSION SNOMED Code(s): 11049212 Comment: - Continue metoprolol and losartan (7) Iron deficiency Current Visit: No Status: Acute Code(s): E61.1 - IRON DEFICIENCY SNOMED Code(s): 16342333 Comment: - Mildy anemic but near her baseline - Iron studies ordered and noted to be iron deficient which could be contributing to her RLS. PO iron supplemention ordered. Stool guaic ordered (8) Restless leg syndrome Current Visit: No Status: Acute Comment: - Continue requip with low dose ativan at night only PRN (9) Full code status Current Visit: No Status: Acute Code(s): Z78.9 - OTHER SPECIFIED HEALTH STATUS SNOMED Code(s): 793742174 (10) DVT prophylaxis Current Visit: No Status: Acute Code(s): Z29.9 - ENCOUNTER FOR PROPHYLACTIC MEASURES, UNSPECIFIED SNOMED Code(s): 466544830 Comment: - Lovenox subq Status and Disposition: Inpatient for NSTEMI pending stress wednesday.
[2019-05-13] MEDS: Nitro Patch/OINT Remove PATCH OFF SCH (19:43)
[2019-05-13] MEDS: Enoxaparin(*) 40 MG/0.4 ML SYR SUBCUT SCH (21:16)
[2019-05-14 03:18] LABS: Troponin I 0.19 ng/mL (<0.04)
[2019-05-14 07:00] LABS: Troponin I 0.17 ng/mL (<0.04)
[2019-05-14] MEDS: Aspirin EC TAB* 81 MG TAB.EC PO SCH (08:26)
[2019-05-14] MEDS: Cholecalciferol TAB* 1000 UNITS PO SCH (08:26)
[2019-05-14] MEDS: Escitalopram * 10 MG TAB PO SCH (08:26)
[2019-05-14] MEDS: Ropinirole TAB* 0.5 MG TAB PO SCH ×2 (08:27→20:24)
[2019-05-14] MEDS: Nitroglycerin 0.4 MG/HR PATCH* (10 MG) TRANSDERM SCH (08:27)
[2019-05-14 08:49] LABS: Troponin I 0.17 ng/mL (<0.04)
[2019-05-14] MEDS ORDERED: Ropinirole TAB* 0.5 MG TAB PO PRN (08:52)
--- NOTE | 2019-05-14 13:37 | PN ---
Subjective Date of Service: 05/14/19 Interval History: Patient had an episode of chest pain overnight. This was associated with SOB and no arrhythmia. Pateint denies current CP, F/C, N/V, abdominal pain, diarrhea , Dysuria, or other pain. Patient continues to complain of severe restless legs. Family History: Unchanged from Admission Social History: Unchanged from Admission Past Medical History: Unchanged from Admission Objective Active Medications: Albuterol/Ipratropium (Duoneb (Albuterol 2.5 Mg/Ipratropium 0.5 Mg)) 1 neb INH Q6H PRN PRN Reason: SHORTNESS OF BREATH Aspirin (Aspirin Ec Tab*) 81 mg PO DAILY [facility] Last Admin: 05/14/19 08:26 Dose: 81 mg Cholecalciferol (Vitamin D Tab*) 2,000 units PO DAILY [facility] Last Admin: 05/14/19 08:26 Dose: 2,000 units Enoxaparin Sodium (Lovenox(*)) 40 mg SUBCUT BEDTIME [facility] Last Admin: 05/13/19 21:16 Dose: 40 mg Escitalopram Oxalate (Lexapro *) 10 mg PO DAILY [facility] Last Admin: 05/14/19 08:26 Dose: 10 mg Lorazepam (Ativan Tab(*)) 0.5 mg PO BEDTIME PRN PRN Reason: restless legs Last Admin: 05/13/19 21:16 Dose: 0.5 mg Metoprolol Succinate (Toprol Xl Tab*) 12.5 mg PO EVERY OTHER DAY [facility] Last Admin: 05/13/19 08:00 Dose: 12.5 mg Miscellaneous (Ativan Pyxis Ly) 1 ea N/A .ATIVAN IV LY PRN PRN Reason: PYXIS LY Nitroglycerin (Nitroglycerin 10 Mg Patch*) 1 patch TRANSDERM 08 [facility] Last Admin: 05/14/19 08:27 Dose: 1 patch Pharmacy Profile Note (Nitro Patch/Oint Remove*) 1 note PATCH OFF 1999 [facility] Last Admin: 05/13/19 19:43 Dose: 1 note Ropinirole HCl (Requip Tab*) 0.5 mg PO BID [facility] Last Admin: 05/14/19 08:27 Dose: 0.5 mg Ropinirole HCl (Requip Tab*) 0.5 mg PO Q24H PRN PRN Reason: Restless Legs Sodium Chloride (Sodium Chloride 0.65% Nasal [place]*) 1 spray BOTH NARES Q4H PRN PRN Reason: NASAL CONGESTION Last Admin: 05/13/19 19:43 Dose: 1 spray Torsemide (Torsemide) 10 mg PO SuTh PRN PRN Reason: EDEMA Vital Signs - 8 hr 05/14/19 05/14/19 07:45 08:00 Temperature 97.3 F Pulse Rate 81 Respiratory 16 17 Rate Blood Pressure 94/69 112/66 (mmHg) O2 Sat by Pulse 100 Oximetry Oxygen Devices in Use Now: Nasal Cannula Appearance: Patient is an 89yo female who appears stated age and is sitting in the bed in [facility]. Eyes: No Scleral Icterus, PERRLA Ears/Nose/Mouth/Throat: NL Teeth, Lips, Gums, Clear Oropharnyx, Mucous Membranes Moist Neck: NL Appearance and Movements; NL JVP, Trachea Midline Respiratory: Symmetrical Chest Expansion and Respiratory Effort, Clear to Auscultation Cardiovascular: NL Sounds; No Murmurs; No JVD, RRR, No Edema, - Abdominal: NL Sounds; No Tenderness; No Distention, No Hepatosplenomegaly Lymphatic: No Cervical Adenopathy Extremities: No Edema, No Clubbing, Cyanosis Skin: No Nodules or Sclerosis, - - Slight tenderness to palpation in Left Chest. Neurological: Alert and Oriented x 3, NL Sensation, NL Muscle Strength and Tone , - Result Diagrams: 05/12/19 05:26 05/12/19 05:26 Additional Lab and Data: Lab Results 05/11/19 05/11/19 05/11/19 Range/Units 18:15 18:15 18:15 WBC 5.9 (3.5-10.8) 10^3/uL RBC 3.58 L (3.70-4.87) 10^6 /uL Hgb 11.7 L (12.0-16.0) g/dL Hct 34 L (35-47) % MCV 94 (80-97) fL MCH 33 H (27-31) pg MCHC 35 (31-36) g/dL RDW 15 (10-15) % Plt Count 123 L (150-450) 10^3/uL MPV 8.6 (7.4-10.4) fL Neut % (Auto) 65.1 % Lymph % (Auto) 20.6 % [place] % (Auto) 9.2 % Eos % (Auto) 4.0 % Baso % (Auto) 1.1 % Absolute Neuts (auto) 3.9 (1.5-7.7) 10^3/ul Absolute Lymphs (auto) 1.2 (1.0-4.8) 10^3/ul Absolute Monos (auto) 0.5 (0-0.8) 10^3/ul Absolute Eos (auto) 0.2 (0-0.6) 10^3/ul Absolute Basos (auto) 0.1 (0-0.2) 10^3/ul Absolute Nucleated RBC 0.0 10^3/ul Nucleated RBC % 0.1 INR (Anticoag Therapy) 0.95 (0.82-1.09) Sodium 139 (135-145) mmol/L Potassium 4.2 (3.5-5.0) mmol/L Chloride 103 (101-111) mmol/L Carbon Dioxide 33 H (22-32) mmol/L Anion Gap 3 (2-11) mmol/L BUN 23 (6-24) mg/dL Creatinine 0.48 L (0.51-0.95) mg/dL Est GFR ( Amer) 147.3 (>60) Est GFR (Non-Af Amer) 121.8 (>60) BUN/Creatinine Ratio 47.9 H (8-20) Glucose 109 H (70-100) mg/dL Calcium 9.5 (8.6-10.3) mg/dL Total Bilirubin 0.30 (0.2-1.0) mg/dL AST 28 (13-39) U/L ALT 33 (7-52) U/L Alkaline Phosphatase 64 (34-104) U/L Troponin I 0.29 H* (<0.04) ng/mL Total Protein 6.0 L (6.4-8.9) g/dL Albumin 3.8 (3.2-5.2) g/dL Globulin 2.2 (2-4) g/dL Albumin/Globulin Ratio 1.7 (1-3) Diagnostic Imaging: *[facility]* [place] [address] Fax #: [phone] Transthoracic Echocardiogram Patient: Keli Holland : 1930 Study Date: 05/12/2019 Age: 89 Gender: F HR: Height: 56 in /142.2 cm BSA: 1.59 m^2 Weight: 154.7 lb /70.3 kg BMI: 34.8 kg/m^2 *Shell Trim Operator: * Alma Rivas RD *Referring Physician: Radha Cohen *Reading Physician: * Oj Valladares MD Indications: Chest Pain, unspecified. History: Coronary artery disease. Congestive heart failure. Chronic obstructive pulmonary disease. PMH: Myocardial infarction. Functional status: Not following treatment plan for sleep apnea. Risk factors: Former tobacco use. Hypertension. Diabetes mellitus. Hyperlipidemia. Labs, prior tests, procedures, and surgery: Transvascular aortic valve replacement. There was a stenosis which was treated with a stent. Conclusions Summary: - Left ventricle: The cavity size is normal. Wall thickness is mildly to moderately increased. Systolic function is normal. The estimated ejection fraction is 60-65%. Wall motion is normal; there are no regional wall motion abnormalities. - Left atrium: The atrium is severely dilated. - Aortic valve: Normally functioning bioprosthetic aortic valve replacement. - Mitral valve: There is mild to moderate regurgitation. - Tricuspid valve: There is mild-moderate regurgitation. - Pulmonary arteries: Systolic pressure is severely increased. - Since the prior echocardiogram completed 01/26/19, there is no significant change. Assess/Plan/Problems-Billing Assessment: This is an 89 year old female with hx CAD, , RLS that presented to the ED after seeing her PCP and complaining of left sided chest pain, also found to have elevated troponin when checked on outpatient labs. - Patient Problems (1) Elevated troponin Current Visit: Yes Status: Acute Code(s): R74.8 - ABNORMAL LEVELS OF OTHER SERUM ENZYMES SNOMED Code(s): 663310146 Comment: - NSTEMI with Peak trop 0.30, no acute ST segment changes, one inverted T wave in lead III only. Currently chest pain free - Brief recurrence overnight, Trop trending down. - Short non-sustained VT on 05/13, asymptomatic - Cardiology consult appreciated, lexiscan held and rescheduled for wednesday - Plan for ECHO today, nitropatch for unstable angina, may consider amlodipine if she cannot tolerate nitro patch - Continue to monitor on tele through the weekend and eval lexiscan on wednesday (2) Aortic stenosis Current Visit: No Status: Acute Code(s): I35.0 - NONRHEUMATIC AORTIC (VALVE ) STENOSIS SNOMED Code(s): 32640053 Comment: - S/P TAVR, ECHO to eval, as noted above, valve functioning, EF 60-65% (3) CAD (coronary artery disease) Current Visit: No Status: Acute Code(s): I25.10 - ATHSCL HEART DISEASE OF [place] CORONARY ARTERY W/O ANG PCTRS SNOMED Code(s): 59151150 Comment: - Hx of PA and PCI with angina and elevated troponins on this admission - Review lexiscan on wednesday, appreciate any fruther recs from cardiology after stress - continue BB every other day, torsemide, ntg and ASA (4) COPD (chronic obstructive pulmonary disease) Current Visit: No Status: Acute Code(s): J44.9 - CHRONIC OBSTRUCTIVE PULMONARY DISEASE, UNSPECIFIED SNOMED Code(s): 08119193 Comment: - On O2 at night and PRN at home of 2L - Not in exacerbation (5) Diabetes Current Visit: No Status: Acute Code(s): E11.9 - TYPE 2 DIABETES MELLITUS WITHOUT COMPLICATIONS SNOMED Code(s): 25482771 Comment: - diet controlled (6) HTN (hypertension) Current Visit: No Status: Acute Code(s): I10 - ESSENTIAL (PRIMARY) HYPERTENSION SNOMED Code(s): 68926544 Comment: - Continue metoprolol and losartan (7) Iron deficiency Current Visit: No Status: Acute Code(s): E61.1 - IRON DEFICIENCY SNOMED Code(s): 41157833 Comment: - Mildy anemic but near her baseline - Iron studies ordered and noted to be iron deficient which could be contributing to her RLS. PO iron supplemention ordered. Stool guaic ordered (8) Restless leg syndrome Current Visit: No Status: Acute Comment: - Continue requip with low dose ativan at night only PRN - Add PRN dose Q24H (9) Full code status Current Visit: No Status: Acute Code(s): Z78.9 - OTHER SPECIFIED HEALTH STATUS SNOMED Code(s): 545499179 (10) DVT prophylaxis Current Visit: No Status: Acute Code(s): Z29.9 - ENCOUNTER FOR PROPHYLACTIC MEASURES, UNSPECIFIED SNOMED Code(s): 504246273 Comment: - Lovenox subq Status and Disposition: Inpatient for NSTEMI pending stress wednesday.
[2019-05-14] MEDS: Enoxaparin(*) 40 MG/0.4 ML SYR SUBCUT SCH (20:24)
[2019-05-14] MEDS: Nitro Patch/OINT Remove PATCH OFF SCH (20:27)
[2019-05-15 06:08] LABS: ABS Eosinophils 0.2 10^3/ul (0-0.6); ABS Lymphocytes 0.8 10^3/ul (1.0-4.8); ABS Monocytes 0.3 10^3/ul (0-0.8); ABS Neutrophils 2.5 10^3/ul (1.5-7.7); Hematocrit 31 % (35-47); Hemoglobin 10.6 g/dL (12.0-16.0); Lymphocyte % 20.7 %; Mean Corpuscular HGB Conc 34 g/dL (31-36); Mean Corpuscular Hemoglobin 32 pg (27-31); Mean Corpuscular Volume 94 fL (80-97); Mean Platelet Volume 8.4 fL (7.4-10.4); Platelet Count 92 10^3/uL (150-450); Red Cell Distribution Width 15 % (10-15); White Blood Count 3.8 10^3/uL (3.5-10.8)
[2019-05-15 06:21] LABS: BUN/Creatinine Ratio 40.8 (8-20); Blood Urea Nitrogen 20 mg/dL (6-24); CO2 Carbon Dioxide 39 mmol/L (22-32); Calcium 9.1 mg/dL (8.6-10.3); Chloride 99 mmol/L (101-111); EGFR African American 143.9 (>60); EGFR Non-African American 118.9 (>60); Glucose 125 mg/dL (70-100); Potassium 4.2 mmol/L (3.5-5.0); Sodium 137 mmol/L (135-145)
[2019-05-15] MEDS: Cholecalciferol TAB* 1000 UNITS PO SCH (10:51)
[2019-05-15] MEDS: Escitalopram * 10 MG TAB PO SCH (10:52)
[2019-05-15] MEDS: Aspirin EC TAB* 81 MG TAB.EC PO SCH (10:52)
[2019-05-15] MEDS: Ropinirole TAB* 0.5 MG TAB PO SCH (10:52)
[2019-05-15] MEDS: Nitroglycerin 0.4 MG/HR PATCH* (10 MG) TRANSDERM SCH (11:05)
[2019-05-15 11:11] VITALS: BP 121/66
[2019-05-15] MEDS ORDERED: Regadenoson* 0.4 MG/5 ML SYRINGE ONE (11:34)
[2019-05-15 14:14] LABS: Urine Appearance Cloudy; Urine Bilirubin Negative (Negative); Urine Blood Negative (Negative); Urine Color Yellow; Urine Glucose Negative (Negative); Urine Ketones Negative (Negative); Urine Nitrite Negative (Negative); Urine Protein Negative (Negative); Urine Specific Gravity 1.017 (1.010-1.030); Urine Urobilinogen Negative (Negative)
--- NOTE | 2019-05-16 11:27 | DS ---
CC: Dr. Rudolph; Dr. Joshua Harden * DISCHARGE SUMMARY: DATE OF ADMISSION: 05/11/19 DATE OF DISCHARGE: 05/15/19 PRIMARY CARE PROVIDER: Dr. Rudolph. MY ATTENDING WHILE IN THE HOSPITAL: Dr. Nydia Foley.* (DICTATED BY BRIANNA MCKEON) OUTPATIENT FELT HAT FLANGING OPERATOR: Dr. Joshua Harden. PRIMARY DISCHARGE DIAGNOSES: 1. Chest pain, non-ST elevation myocardial infarction, troponin peak 0.3. 2. Severe restless leg syndrome. SECONDARY DISCHARGE DIAGNOSES: 1. History of coronary artery disease, status post myocardial infarction. 2. History of aortic valve disease, status post replacement. 3. Hypertension. 4. Hyperlipidemia. 5. Diabetes mellitus type 2. 6. Asthma. 7. Chronic obstructive pulmonary disease with chronic hypoxic respiratory failure, on 2 L of oxygen. 8. Depression. 9. Obstructive sleep apnea. 10. Congestive heart failure. STUDIES DONE WHILE IN THE HOSPITAL: Transthoracic echocardiogram on 05/12/19 read as normal, wall thickness is mildly to moderately reduced. Systolic function is normal. Ejection fraction is 60% to 65%. No regional wall motion abnormalities. Left atrium is severely dilated. Aortic valve, normally functioning bioprosthetic aortic valve replacement. Mitral valve, there is mild -to-moderate regurgitation. Tricuspid valve, there is [id number] regurgitation. Pulmonary artery systolic pressure is severely increased. No significant change since 01/26/19. EKG showed right bundle-branch block, T-wave inversion in lead III, normal axis. No other ST segment elevations or depressions. Nuclear medicine scan from 05/15/19 read as large lateral and inferior wall infarct extending from the apex of the base, new compared to 2015 exam with subsequent hypokinesia. Left ventricle ejection fraction remains within normal range. Negative for ventricular dilation. MEDICATIONS AT DISCHARGE: 1. Vitamin D 2000 units p.o. daily. 2. Aspirin 81 mg p.o. daily. 3. Metoprolol succinate 12.5 mg every other day. 4. Fluticasone 2 sprays both nares daily as needed. 5. Escitalopram 10 mg p.o. daily. 6. Nitroglycerin 0.4 mg sublingually q.5 minutes as needed for chest pain. 7. Albuterol ipratropium inhaler 1 inhalation q.6 hours as needed. 8. Multivitamin 1 tab p.o. daily. 9. Ropinirole 0.5 mg p.o. at bedtime. 10. Magnesium oxide 250 mg p.o. daily. 11. Lorazepam 0.5 mg p.o. at bedtime as needed. 12. Nitroglycerin patch 0.4 mg/hr, 1 patch transdermal daily in the morning. 13. Ropinirole 0.25 mg p.o. q.24 hours as needed. New medications at discharge: 1. Lorazepam. 2. Nitroglycerin. 3. Ropinirole 0.25 mg p.o. daily. Medications discontinued at discharge: Torsemide 10 mg on Wednesday and . The patient was not using this medication. HOSPITAL COURSE: This is a brief summary of the patient's presentation. For more details, please see the history and physical from Radha Delgado NP on 05/11/19. In brief, the patient is an 89-year-old female with past medical history significant for the above, who presented to the emergency department after having a prolonged course of intermittent left-sided chest pain and has a troponin level drawn in the office, which was positive. An EKG, which showed inverted T-wave in lead III. The patient came to the emergency department and had no chest pain at that time and was started on nitroglycerin patch and was admitted to the hospital. The patient was scheduled to have a nuclear medicine stress test on the morning of 05/12/19; however, she had a 6- beat run of V-tach in the morning, which was previously unknown to her. Stress test was put on hold. The patient was optimized. The patient was then scheduled for a stress test again on 05/15/19. The patient remained in the hospital the weekend. The patient did have a recurrent episode of left-sided chest pain on the night of 05/14/19, which showed persistent troponin elevation but that was trending down. The patient's troponin peaked at 0.3. The patient had an EKG, which showed no significant changes as above. The patient throughout her hospitalization complained of severe restless leg syndrome, requiring a total of 1.5 mg of ropinirole daily as well as p.r.n. Ativan at night. Her daughter had concern this was making the patient too sedated. The patient had a stress test on 05/15/19, which provoked no chest pain as read as above. The intervening risks were discussed with Dr. Oj Valladares of Cardiology, who said the patient has history of no infarct and should continue with the nitro patch and follow up with her outpatient clinical support associate, Dr. Joshua Harden , for continued secondary prevention. The patient was stable and amenable to discharge on 05/16/19. PHYSICAL EXAM ON THE DAY OF DISCHARGE: General: The patient is an 89-year-old female who appears stated age, sitting comfortably in bed, in no acute distress. Vital Signs: Temperature 98.0, pulse rate 74, respiratory rate 18, oxygen saturation 95% on 2 L, blood pressure 120/66. HEENT: Head normocephalic , atraumatic. Sclerae anicteric. No conjunctival injection. Nasal mucosa is moist. Oral mucosa moist. No pharyngeal erythema, discharge or exudate. Neck: Supple, nontender. No lymphadenopathy. No carotid bruit auscultated. No JVD. Cardiac: Regular rate and rhythm. 2/6 systolic ejection murmur heard. No rub, no gallop. Pulses 2+ in the bilateral dorsalis pedis, posterior tibialis, and radial areas. Respiratory: Clear to auscultation bilaterally. No wheezes, rales, or rhonchi. Good air exchange bilaterally. Abdomen: Soft, nontender, nondistended. Bowel sounds are present and normoactive in all 4 quadrants. No hepatosplenomegaly. No abdominal bruits auscultated. No hepatojugular reflux. Genitourinary: No suprapubic tenderness or CVA tenderness. Skin: Clean, dry , and intact. Neuro: Cranial nerves II through XII are intact. No focal deficits. Alert and oriented x3. Psychiatric: Pleasant and cooperative. DISCHARGE PLAN BY PROBLEM: 1. Chest pain, slight troponin elevation. The patient had chest pain with slight troponin elevation and mild EKG changes. The patient has known coronary artery disease and has had an intermediate risk stress test and no catheterization was recommended at this time. The patient will be continued on nitro patch as above as well as her aspirin and beta-arnulfo for secondary prevention. The patient is allergic to STATINS and should follow up with her outpatient clinical support associate about the possibility of other lipid lowering agents such as ezetimibe. 2. Restless leg syndrome. The patient has severe restless leg syndrome. The patient is anemic. The patient has been previously iron deficient. The patient has a followup appointment with real estate representative/oncologist, Dr. Shaneka Luther on 05/17/19. Discuss repeat iron panel and possibly continuing IV iron supplementation, as this has previously helped with her restless legs, the patient was mainly restless at night and interferes with her sleep. The patient is to start ropinirole 0.5 mg at night and then repeat 0.25 mg as needed twice during the night and then taking Ativan for breakthrough cases as this has worked well for her while in the hospital. 3. Chronic obstructive pulmonary disease with hypoxic respiratory failure. Continue on oxygen and nebulizers as needed. The patient is to follow up with her primary care provider to discuss known care for her chronic obstructive pulmonary disease including routine PFTs, possible long-term inhalers for symptomatic control. 4. Aortic valve disease. The patient's valve appears to be functioning normally. 5. Diabetes. The patient is on no medications. The patient should continue to follow up with primary care provider for routine medical management including hemoglobin A1c and lipid profiles per protocol. 6. Depression. Continue citalopram. CONDITION: Stable. DISPOSITION: Home. TIME SPENT: Approximately 60 minutes were spent on the discharge of this patient, 30 of which were spent [id number] with the patient, obtaining history and physical and discussing the treatment plan. BRIANNA MCKEON [id number]/CPS #: [id number] MTDD
== END 2019-05-15 15:32 | disposition home or self-care (01) | DRG 281 ==
LOC: ED 17:12 → MEDTELE 21:40 → OBSVTOIN 05-12 14:00
PROVIDERS: ADMIT Internal Medicine; ATTEND Internal Medicine
DX: I21.4 Non-ST elevation (NSTEMI) myocardial infarction (principal); J96.11 Chronic respiratory failure with hypoxia; I47.2 Ventricular tachycardia; G25.81 Restless legs syndrome; I11.0 Hypertensive heart disease with heart failure; I50.9 Heart failure, unspecified; Z99.81 Dependence on supplemental oxygen; J44.9 Chronic obstructive pulmonary disease, unspecified; E11.9 Type 2 diabetes mellitus without complications; I45.10 Unspecified right bundle-branch block; I08.1 Rheumatic disorders of both mitral and tricuspid valves; Z95.2 Presence of prosthetic heart valve; F32.9 Major depressive disorder, single episode, unspecified; E78.5 Hyperlipidemia, unspecified; F41.9 Anxiety disorder, unspecified; G47.33 Obstructive sleep apnea (adult) (pediatric); D50.9 Iron deficiency anemia, unspecified; I25.10 Atherosclerotic heart disease of native coronary artery without angina pectoris; Z95.5 Presence of coronary angioplasty implant and graft; Z79.82 Long term (current) use of aspirin; Z79.899 Other long term (current) drug therapy; Z88.1 Allergy status to other antibiotic agents; Z88.2 Allergy status to sulfonamides; Z88.8 Allergy status to other drugs, medicaments and biological substances; Z91.048 Other nonmedicinal substance allergy status; Z83.3 Family history of diabetes mellitus; Z82.3 Family history of stroke; Z82.49 Family history of ischemic heart disease and other diseases of the circulatory system; Z87.891 Personal history of nicotine dependence; I25.2 Old myocardial infarction
CPT/HCPCS: 36415; 78452; 80048; 80053; 80320; 81003; 83735; 83880; 84484; 85025; 85060; 85610; 93005; 93017; 93306; 99284; A9270-GY; A9502; G0480; J1650; J2060; J2785